=== PATIENT | male | born 1965 | race Caucasian/White ===

== ENCOUNTER 2018-09-29 20:55 | Emergency (ER) | payer MEDICARE ==
[~2018-09-29] VITALS: Ht 177.8 cm; Wt 79.5 kg
[2018-09-29] MEDS ORDERED: VENL150C43 PO (21:18)
[2018-09-29] MEDS ORDERED: OXYC10TA12 PO (21:18)
[2018-09-29] MEDS ORDERED: FENT1DIS14 TD (21:18)
[2018-09-29] MEDS ORDERED: SENNA DOCUSATE PO (21:18)
[2018-09-29] MEDS ORDERED: REME30TA PO (21:18)
[2018-09-29] MEDS ORDERED: PRED20TA PO (21:18)
[2018-09-29] MEDS ORDERED: VITA1CAP25 PO (21:18)
[2018-09-29] MEDS ORDERED: GABA800T4 PO (21:18)
[2018-09-29] MEDS ORDERED: PANT40TA3 PO (21:18)
[2018-09-29] MEDS ORDERED: HYDROMORPHONE HCL 0.5 MG/ 0.5 ML SYRINGE (J1170 PER 1) IM ONE (22:00)
[2018-09-29 22:27] VITALS: BP 129/85
--- NOTE | 2018-09-30 06:39 | ECGEPIP ---
Stationary ECG Study [facility] - ED Test Date: 2018-09-29 Pat Name: CINDY TAN Department: Room: - Gender: M Librarian: : 1965 Requested By: KIMBERLEE TERRY Order Number: [id number] Reading MD: Pipe Rodriguez Measurements Intervals [place] Rate: 91 P: 46 UT: 169 QRS: 17 QRSD: 89 T: 44 QT: 326 QTc: 402 Interpretive Statements SINUS RHYTHM NO OLD ECG FOR COMPARISON Electronically Signed On 09-30-2018 6:38:43 EDT by Pipe Rodriguez
[2018-10-03] MEDS ORDERED: MORP-38 PO (11:19)
[2018-10-03] MEDS ORDERED: APAP500T10 PO (11:20)
[2018-10-03] MEDS ORDERED: SENN8.6T28 PO (11:21)
[2018-10-03] MEDS ORDERED: VITA50005 PO (11:22)
[2018-10-03] MEDS ORDERED: IRON27TA2 PO (11:23)
[2018-10-03] MEDS ORDERED: OXYC10TA12 PO (12:29)
[2018-10-14] MEDS ORDERED: PRED20TA PO (13:00)
[2018-10-18] MEDS ORDERED: MOBI4TAB PO (09:21)
[2018-10-18] MEDS ORDERED: PANT40TA3 PO (09:23)
[2018-10-18] MEDS ORDERED: MORP-38 PO (09:48)
[2018-10-18] MEDS ORDERED: LASI20TA3 PO (10:17)
== END 2018-09-29 22:45 | disposition home or self-care (01) ==
LOC: M ED 20:55
DX: G89.29 Other chronic pain (principal); Z85.89 Personal history of malignant neoplasm of other organs and systems; Z92.3 Personal history of irradiation; Z79.899 Other long term (current) drug therapy
CPT/HCPCS: 93005; 96372; 99284; J1170

== ENCOUNTER → 2018-10-11 | Outpatient (CLI) | payer MEDICARE ==
[~2018-10-11] MED LIST: APAP500T10 PO; FENT1DIS14 TD; GABA800T4 PO; IRON27TA2 PO; LASI20TA3 PO; MOBI4TAB PO; MORP-38 PO; OXYC10TA12 PO; PANT40TA3 PO; PRED20TA PO; REME30TA PO; SENN8.6T28 PO; SENNA DOCUSATE PO; VENL150C43 PO; VITA1CAP25 PO; VITA50005 PO
--- NOTE | 2018-10-12 08:21 | REP ---
PET/CT: HISTORY: Staging head and neck malignancy. 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 Diagnosed in 2013. Skull base recurrence. COMPARISONS: No comparison study available. TECHNIQUE: 50 minutes following the intravenous injection of a 7.09 mCi dose of F-18 FDG, three-dimensional PET scintigraphy is acquired from the skull vertex to the proximal thighs. Triplanar noncontrast CT scanning is acquired through the same anatomic range for attenuation correction, and image registration with scan parameters optimized to minimize radiation exposure to the patient. PET scintigraphy and CT datasets were fused and displayed on a workstation with multiplanar and projection display capability. PET/CT FINDINGS: There is mild motion misregistration artifact in the head and neck region. There is normal variant skeletal muscle uptake bilaterally in the skeletal muscles of the neck. There is a hypermetabolic recurrence at the right side of the skull base with an area of bone destruction in the anterior occipital bone and petrous apex and adjacent soft tissue hyperactivity. This extends into the preauricular soft tissues and narrows the external auditory canal. Hypermetabolic uptake here displays maximum standard uptake value of 7.45. Right parotid soft tissue involvement displays a maximum standard uptake value 5.67. There are hypermetabolic foci in the mediastinal and bilateral hilar lymph nodes. A pretracheal lymph node displays maximum standard uptake value of 12.54. This lymph node measures 18 mm in short axis dimension. A subcarinal node which measures 15 mm in short axis dimension displays a maximum standard uptake value of 5.30. There is metabolic and corrina uptake in the left hilus, 7.51 SUV and in the right hilus, 3.70 SUV. There is an ill-defined opacity in the right lower lobe which is hypermetabolic, maximum standard uptake value 4.20. This could be inflammatory or neoplastic. There is a small quantity of right pleural fluid without hypermetabolic uptake. IMPRESSION: Hypermetabolic foci in the skull base and right superior neck as well as in mediastinal and bilateral hilar lymph nodes. Possible neoplastic focus in the right lower lobe of the lung. Electronically Signed by Davis Cordova MD 10/12/2018 05:24 P
== END ==
LOC: M PLARAD 13:30
PROVIDERS: ATTEND Internal Medicine Medical Oncology
DX: C76.0 Malignant neoplasm of head, face and neck (principal); R59.0 Localized enlarged lymph nodes; R91.8 Other nonspecific abnormal finding of lung field; Z85.818 Personal history of malignant neoplasm of other sites of lip, oral cavity, and pharynx; Z92.3 Personal history of irradiation; Z92.21 Personal history of antineoplastic chemotherapy
CPT/HCPCS: 78815; A9552

== ENCOUNTER 2018-11-08 17:12 | Inpatient (IN) | payer MEDICARE ==
[~2018-11-08] VITALS: Ht 177.8 cm; Wt 71.4 kg
[2018-11-08] VITALS (7 sets, daily range): BP systolic 60–87; BP diastolic 38–48
[~2018-11-08 17:12] MED LIST changes: +FENT12DI12 TOP; +MORP30TASA PO; +RITA5TAB PO
[2018-11-08] MEDS ORDERED: NS IV ONE (17:45)
[2018-11-08] MEDS ORDERED: ACETAMINOPHEN 650 MG SUPP PR ONE (17:45)
[2018-11-08] MEDS ORDERED: DILUENT IV ONE (17:45)
[2018-11-08] MEDS ORDERED: CEFEPIME HCL 2 GM in D5W MINI-BAG PLUS 50 ML IV ONE (17:45)
[2018-11-08 17:54] LABS: HEMATOCRIT 50.8 % (42.0-52.0); MEAN CORPUSCULAR HEMOGLOBIN 27.3 pg (27.0-33.0); MEAN CORPUSCULAR HGB CONC 29.5 g/dl (32.0-36.5); MEAN CORPUSCULAR VOLUME 92.4 fl (80.0-96.0); PLATELET COUNT, AUTOMATED 338 10^3/uL (150-450); WHITE BLOOD COUNT 9.7 10^3/uL (4.0-10.0)
[2018-11-08] MEDS ORDERED: SODIUM CHLORIDE 0.9% INJ 10 ML SYR IV PRN (18:00)
[2018-11-08 18:07] LABS: INR 0.92; PROTHROMBIN TIME 12.5 SECONDS (12.1-14.4)
[2018-11-08 18:08] LABS: PARTIAL THROMBOPLASTIN TIME 22.4 SECONDS (25.4-37.6)
[2018-11-08 18:09] LABS: ALBUMIN 3.3 GM/DL (3.2-5.2); ALT/SGPT 67 U/L (12-78); AMYLASE 30 U/L (25-115); BILIRUBIN,DIRECT < 0.1 MG/DL (0.0-0.2); BILIRUBIN,TOTAL 0.2 MG/DL (0.2-1.0); BLOOD UREA NITROGEN 26 MG/DL (7-18); C REACTIVE PROTEIN QUANTITATIV 9.66 MG/DL (0.00-0.30); CARBON DIOXIDE LEVEL 30 MEQ/L (21-32); CHLORIDE LEVEL 99 MEQ/L (98-107); CPK CREATINE PHOSPHOKINASE 52 U/L (39-308); GLOMERULAR FILTRATION RATE 37.3 (>56); GLUCOSE, FASTING 125 MG/DL (70-100); MB/CK RELATIVE INDEX 2.69 (< OR =4); POTASSIUM SERUM 3.8 MEQ/L (3.5-5.1); SODIUM LEVEL 138 MEQ/L (136-145); TOTAL PROTEIN 6.3 GM/DL (6.4-8.2); TROPONIN I 0.13 NG/ML (< 0.10)
--- NOTE | 2018-11-08 18:27 | REP ---
Portable chest x-ray: Single view. History: Sepsis, shock. Comparison study: September 07, 2016. Findings: EKG monitoring electrodes overlie the chest. A left-sided [id number] catheter is again noted in place. Right hemidiaphragm is somewhat elevated. There are some increased markings in the right lung base consistent with infiltrate and/or atelectasis. Pulmonary vasculature is somewhat cephalized. No free pleural effusion is seen. There is evidence of right coronary artery stent material. Impression: Increased markings in the right base along the right heart border may reflect infiltrate. Btnyzj-[id number]-Wrjg catheter noted in place. Electronically Signed by Davis Cordova MD 11/08/2018 10:37 P
[2018-11-08] MEDS ORDERED: VITA500045 PO (18:53)
[2018-11-08] MEDS ORDERED: FENT1DIS14 TD (18:55)
[2018-11-08] MEDS ORDERED: FENT12DI8 TD (18:55)
[2018-11-08] MEDS ORDERED: FERR325T3 PO (18:56)
[2018-11-08] MEDS ORDERED: LIDOCAINE 2% 5ML JELLY UROJET TOP ONE (19:00)
[2018-11-08] MEDS ORDERED: PANT40TA3 PO (19:01)
[2018-11-08] MEDS ORDERED: METH5TAB76 PO (19:01)
[2018-11-08] MEDS ORDERED: PRED20TA PO (19:01)
[2018-11-08] MEDS ORDERED: NEUR800T PO (19:01)
[2018-11-08] MEDS ORDERED: FURO20TA2 PO (19:01)
[2018-11-08] MEDS ORDERED: MORP15TA2 PO (19:01)
[2018-11-08 19:04] LABS: LYMPHOCYTES 5 % (16-52); MONOCYTES 5 % (0-8); NEUTROPHILS 55 % (35-75)
[2018-11-08 19:05] LABS: ATYPICAL LYMPH 1 % (0-5); METAMYELOCYTES 5 % (0-0); MYELOCYTES 1 % (0-0); PROMYELOCYTES 1 % (0-0)
[2018-11-08 19:08] LABS: PLATELET CLUMPS SMALL AMT; PLATELET ESTIMATE NORMAL (NORMAL)
[2018-11-08 19:10] LABS: ANISOCYTOSIS 1+
[2018-11-08] MEDS ORDERED: VANCOMYCIN HCL 1,000 MG, VIAL MATE ADAPTER 1 EACH in D5W 250 ML IV ONE (19:15)
[2018-11-08] MEDS ORDERED: PIPERACILLIN/TAZOBACTAM SOD 3.375 GM in D5W MINI-BAG PLUS 50 ML IV ONE (19:15)
--- NOTE | 2018-11-08 19:57 | ECGEPIP ---
Stationary ECG Study [facility] - ED Test Date: 2018-11-08 Pat Name: CINDY TAN Department: Room: - Gender: M Hog Man: TC : 1965 Requested By: Rashi Chavez Order Number: [id number] Reading MD: Abhay Haro Measurements Intervals [place] Rate: 157 P: 46 UT: 127 QRS: 49 QRSD: 77 T: 60 QT: 266 QTc: 430 Interpretive Statements SINUS TACHYCARDIA Nonspecific ST-T wave abnormalities Electronically Signed On 11-08-2018 19:57:00 EDT by Abhay Haro
[2018-11-08] MEDS ORDERED: LR 1,000 ML IV ONE ×2 (20:00→22:50)
[2018-11-08] MEDS ORDERED: MORPHINE 4 MG/ML 1ML VIAL/SYRINGE (J2270) IV PRN (20:00)
[2018-11-08] MEDS: IPRATROPIUM 0.5MG/ALBUTEROL 2.5MG INH SOL UD 3ML (DUONEB)(J7620) NEB SCH (20:00)
[2018-11-08] MEDS ORDERED: CIPROFLOXACIN 400 MG in APPROPRIATE DILUENT 1 EA IV SCH (20:00)
[2018-11-08 20:17] LABS: MAGNESIUM LEVEL 1.5 MG/DL (1.8-2.4)
--- NOTE | 2018-11-08 20:20 | HPEPDOC ---
General Date of Admission Attending Physician: EVIN LOERA MD Chief Complaint The patient is a 53-year-old male admitted with a reason for visit of Altered Mental Status. 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 Family at bedside provided history. They report patient has been tired at home. He had recently gone to [facility] for a second opinion on his cancer which had involved very long drive. They felt he was possibly tired because of the long trip. He had not complained of any chills or fever. However, this morning patient had multiple bouts of diarrhea which looked dark and tarry. There were concerned about possible GI bleed. Patient was also noted to be grabbing his midsection. Family estimates patient had more than 5 bouts of diarrhea. On admit pulse rate was 145, blood pressure was 55/32 with a map of 40, temp was 105.8. A dose of Maxipime was administered, was placed on continuous IV fluid bolus, hospitalist team, was endorsed for admission for possible GI bleed. On assessment, patient was unable to provide any history, and during evaluation, had another episode of foul smelly large watery BM. A sample was obtained for evaluation for possible GI infection. Home Medications Scheduled Ergocalciferol (Vitamin D2) (Vitamin D2) 50,000 Unit Capsule, 50,000 UNIT PO QWEEK, (Reported) SUNDAYS. PATIENT RAN OUT OF MED SO HASN'T TAKEN IN A WHILE Fentanyl (Fentanyl) 12 Mcg Patch.td72, 12 MCG TD Q72H, (Reported) USES WITH 25MCG PATCH TO EQUAL 37MCG EVERY 3 DAYS Fentanyl (Fentanyl) 25 Mcg Patch.td72, 25 MCG TD Q72H, (Reported) USES WITH 12MCG PATCH TO EQUAL 37MCG. APPLIES EVERY 3 DAYS Ferrous Sulfate (Ferrous Sulfate) 325 Mg Tablet.dr, 325 MG PO DAILY, (Reported) TAKES AT 1200 Furosemide (Furosemide) 20 Mg Tablet, 10 MG PO DAILY, (Reported) HAS NOT STARTED YET Gabapentin (Neurontin) 800 Mg Tablet, 800 MG PO QID, (Reported) Methylphenidate HCl (Methylphenidate HCl) 5 Mg Tablet, 5 MG PO DAILY, (Reported) Mirtazapine (Remeron) 30 Mg Tab, 30 MG PO QHS, (Reported) Pantoprazole Sodium (Pantoprazole Sodium) 40 Mg Tablet.dr, 40 MG PO BID, (Reported) Prednisone (Prednisone) 20 Mg Tablet, 20 MG PO BID, (Reported) Sennosides (Senna) 8.6 Mg Tab, 8.6 MG PO BID, (Reported) Venlafaxine HCl (Venlafaxine HCl ER) 150 Mg Cap, 150 MG PO DAILY, (Reported) Scheduled PRN Acetaminophen (Acetaminophen) 500 Mg Tab, 500 MG PO Q6H PRN for PAIN, (Reported) Morphine Sulfate (Morphine Sulfate) 15 Mg Tablet, 15 MG PO BID PRN for PAIN, (Reported) Allergies Coded Allergies: No Known Allergies (Unverified , 09/29/18) Attending Note I personally saw and examined the pt. Agree with BUCKET TURNER note above. IMP: Sepsis from colitis/enteritis with Circulatory and Renal Failure. Abdomen exam is benign; no indication of acute abdomen. Pt is having large amount of frequent watery diarrhea; yellow-greenish color. Suspect infectious enteritis/colitis. GI panel is pending. Empirically started on IV Cipro/Flagyl and oral Vanco. Continue fluid resuscitation, followed by vasopressor if needed. Monitor multi-organ functions. Admit to ICU. Spent 45 minutes in Critical Care. Past Medical History Medical History CAD Anemia Oropharyngeal cancer GERD Surgical History G-tube placement Social History Smokes one pack per day, drinks beer daily, no history of polysubstance abuse per family A-FIB/CHADSVASC A-FIB History Current/History of A-Fib/PAF?: No Current Oral Anticoagulant The: No Review of Systems Other systems Review of systems not completed due to patient's clinical state with altered mental status and sepsis Physical Examination Other physical findings GENERAL: NAD SKIN : Warm, dry intact HEENT: Mandibular edema CV: Tachycardia, Regular rate and rhythm, S1S2, no JVD, no edema RESP: CTAB, no accessory muscle use noted ABDOMEN: Hypoactive bowel sounds , distended , not palpated MS: no joint deformities NEURO: Lethargic PSYCH: Altered mental status, no agitation Vital Signs Vital Signs Date Time Temp Pulse Resp B/P (MAP) Pulse Ox O2 Delivery O2 Flow Rate FiO2 11/08/18 18:55 105.8 11/08/18 18:51 61/28 (39) 11/08/18 18:42 144 79 11/08/18 17:44 30 Room Air Laboratory Data Labs 24H Laboratory Tests 2 11/08/18 17:31: Immature Granulocyte % (Auto) , Nucleated Red Blood Cells % (auto) 0.2H, Neutrophils 55, Band Neutrophils 27H, Lymphocytes (Manual) 5L, Monocytes (Manual) 5, Metamyelocytes 5H, Myelocytes 1H, Promyelocytes 1H, Atypical Lymphocytes 1, Platelet Estimate NORMAL, Clumped Platelets SMALL AMT, Anisocytosis 1+, Prothrombin Time 12.5, Prothromb Time International Ratio 0.92, Activated Partial Thromboplast Time 22.4L, Anion Gap 9, Glomerular Filtration Rate 37.3L, Lactic Acid Level 4.6*H, Calcium Level 9.0, Aspartate Amino Transf (AST/SGOT) 39H, Alanine Aminotransferase (ALT/SGPT) 67, Alkaline Phosphatase 92, Total Bilirubin 0.2, Direct Bilirubin < 0.1, Total Creatine Kinase 52, Creatine Kinase MB 1.0, Creatine Kinase MB Relative Index 2.69, Troponin I 0.13H, C- Reactive Protein, Quantitative 9.66H, Total Protein 6.3L, Albumin 3.3, Albumin/Globulin Ratio 1.10, Amylase Level 30 CBC/BMP Laboratory Tests 11/08/18 17:31 Red Blood Count 5.50, Mean Corpuscular Volume 92.4, Mean Corpuscular Hemoglobin 27.3, Mean Corpuscular Hemoglobin Concent 29.5 L, Red Cell Distribution Width 18.3 H Microbiology Microbiology 11/08/18 Blood Culture, Received Pending Assessment/Plan Sepsis due to colitis with hypotension and acute kidney injury -Admit to ICU -Presenting with hypotension, tachycardia, elevated lactic acid, and significant diarrhea -Patient got 1 dose of Maxipime and emergency room -Due to high suspicion for infectious colitis, administer Cipro, Flagyl, and oral vancomycin -Stool sample for stool studies- follow findings -Blood culture, to rule out other infection source since he has a port -Lactated Ringer bolus till blood pressure normalized then transition to 200 mL per hour. -Protonix 40 mg twice a day IV -Pena catheter for close critical care monitoring Oropharyngeal cancer with maxillofacial edema --Continue steroid therapy with Solu-Medrol for now -Transitioned back to oral dosing when stable, able to tolerate by mouth and acute colitis, resolved Nicotine dependence --NicoDerm patch when patient is awake and has cravings DVT prophylaxis Heparin 5000 SQ Plan / VTE VTE Prophylaxis Ordered?: Yes HARPREET YEE November 08, 2018 20:20 EVIN LOERA MD November 08, 2018 21:56
[2018-11-08] MEDS ORDERED: DEXTROSE 50% 50 ML SYRINGE IV PRN (21:00)
[2018-11-08] MEDS ORDERED: methylPREDNISolone INJ 125 MG/2 ML VIAL (J2930) IV SCH (21:00)
[2018-11-08] MEDS ORDERED: methylPREDNISolone INJ 40 MG/1 ML VIAL (J2920) IV SCH (21:00)
[2018-11-08] MEDS ORDERED: CHLORHEXIDINE GLUCONATE 0.12 % 15ML UDC (PERIDEX ORAL RINSE) MT SCH (21:00)
[2018-11-08] MEDS ORDERED: GLUCOSE 4 GM CHEW TABLET PO PRN (21:00)
[2018-11-08] MEDS ORDERED: PANTOPRAZOLE 40MG INJ (PROTONIX) (C9113) IV SCH (21:00)
[2018-11-08] MEDS ORDERED: GLUCAGON FOR INJ 1 MG VIAL (J1610) SC PRN (21:00)
[2018-11-08] MEDS: VANCOMYCIN ORAL SOL 250MG/5ML ORAL SYRINGE PO SCH (21:33)
[2018-11-08] MEDS: metroNIDAZOLE 500 MG in APPROPRIATE DILUENT 1 EA IV SCH (21:33)
[2018-11-08 21:44] LABS: VENOUS BASE EXCESS -3.7 (-2.0-2.0); VENOUS HCO3 24.7 MEQ/L (23.0-27.0); VENOUS O2 SATURATION 87.7 % (60.0-80.0); VENOUS PARTIAL PRESSURE CO2 58.9 mmHg (38.0-50.0); VENOUS PARTIAL PRESSURE O2 68.5 mmHg (30.0-50.0); VENOUS PH 7.241 UNITS (7.330-7.430); VENOUS STANDARD HCO3 21.2 MEQ/L; VENOUS TOTAL CO2 26.5 MEQ/L (24.0-28.0)
[2018-11-08 22:07] LABS: CALCIUM LEVEL 7.8 MG/DL (8.5-10.1); CREATININE FOR GFR 2.45 MG/DL (0.70-1.30); GLOMERULAR FILTRATION RATE 29.5 (>56); POTASSIUM SERUM 3.7 MEQ/L (3.5-5.1); TROPONIN I 0.33 NG/ML (< 0.10)
[2018-11-08] MEDS: NOREPINEPHRINE BITARTRATE 8 MG in D5W 492 ML IV SCH (22:15)
[2018-11-08] MEDS ORDERED: NOREPINEPHRINE 4 MG/4 ML AMP As Ordered ONE (22:20)
[2018-11-08] MEDS ORDERED: ACETAMINOPHEN TAB 650MG DOSE (2X325MG) As Ordered ONE (22:52)
[2018-11-08] MEDS: HEPARIN SOD (PORCINE) 5000 UNITS/ML VIAL SC SCH (22:57)
[2018-11-08] MEDS: HYDROCORTISONE 100 MG/2 ML VIAL (J1720) IV SCH (22:57)
[2018-11-08] MEDS: PANTOPRAZOLE 40MG INJ (PROTONIX) (C9113) IV SCH (22:57)
[2018-11-08] MEDS ORDERED: ACETAMINOPHEN TAB 650MG DOSE (2X325MG) PO PRN (23:00)
[2018-11-08 23:23] LABS: INFLUENZA A AMPLIFICATION NEGATIVE (NEGATIVE); INFLUENZA B AMPLIFICATION NEGATIVE (NEGATIVE)
[2018-11-08] MEDS: LR 1,000 ML IV SCH (23:23)
[2018-11-08] MEDS ORDERED: MAG SULF 1GM/100ML (MAG RUN) 1 GM in APPROPRIATE DILUENT 1 EA IV ONE (23:30)
[2018-11-08] MEDS: VASOPRESSIN INJ 20 UNITS in NS 499 ML IV SCH (23:40)
[2018-11-09] VITALS (60 sets, daily range): BP systolic 60–136; BP diastolic 41–83
[2018-11-09] MEDS ORDERED: VASOPRESSIN INJ 20 UNITS in NS 499 ML IV SCH ×2
[2018-11-09] MEDS ORDERED: CBD OIL PO PRN (00:15)
[2018-11-09 00:19] LABS: ABG BASE EXCESS -1.7 (-2.0-2.0); ABG HCO3 22.9 MEQ/L (22.0-26.0); ABG O2 SATURATION 97.5 % (95.0-99.0); ABG PARTIAL PRESSURE CO2 38.4 mmHg (35.0-45.0); ABG PARTIAL PRESSURE O2 106.8 mmHg (75.0-100.0); ABG STANDARD HCO3 23.1 MEQ/L (22.0-26.0); ABG TOTAL CO2 24.1 MEQ/L (22.0-29.0); ABG pH (ARTERIAL) 7.394 UNITS (7.350-7.450)
[2018-11-09] MEDS: VANCOMYCIN ORAL SOL 250MG/5ML ORAL SYRINGE PO SCH ×4 (00:50→18:09)
[2018-11-09] MEDS ORDERED: EPINEPHrine HCL INJ 1 MG in D5W 240 ML IV SCH (01:00)
[2018-11-09 02:46] LABS: TROPONIN I 0.39 NG/ML (< 0.10)
[2018-11-09] MEDS ORDERED: NOREPINEPHRINE 4 MG/4 ML AMP As Ordered ONE (03:39)
[2018-11-09] MEDS: NOREPINEPHRINE BITARTRATE 8 MG in D5W 492 ML IV SCH ×4 (03:44→17:00)
[2018-11-09] MEDS: LR 1,000 ML IV SCH ×2 (04:00→09:52)
[2018-11-09] MEDS: metroNIDAZOLE 500 MG in APPROPRIATE DILUENT 1 EA IV SCH (04:18)
[2018-11-09 05:28] LABS: HEMATOCRIT 39.3 % (42.0-52.0); MEAN CORPUSCULAR HEMOGLOBIN 26.8 pg (27.0-33.0); MEAN CORPUSCULAR HGB CONC 29.3 g/dl (32.0-36.5); MEAN CORPUSCULAR VOLUME 91.6 fl (80.0-96.0); PLATELET COUNT, AUTOMATED 243 10^3/uL (150-450); RED BLOOD COUNT 4.29 10^6/uL (4.30-6.10); WHITE BLOOD COUNT 10.3 10^3/uL (4.0-10.0)
[2018-11-09 05:35] LABS: HEMOGLOBIN 11.5 g/dl (13.5-17.5)
[2018-11-09] MEDS: HEPARIN SOD (PORCINE) 5000 UNITS/ML VIAL SC SCH ×3 (05:39→21:01)
[2018-11-09] MEDS: fentaNYL 100 MCG/2 ML INJECTION (J3010) IV PRN ×9 (05:39→22:16)
[2018-11-09] MEDS: HYDROCORTISONE 100 MG/2 ML VIAL (J1720) IV SCH ×3 (05:39→21:15)
[2018-11-09 05:50] LABS: CALCIUM LEVEL 7.4 MG/DL (8.5-10.1); CREATININE FOR GFR 2.55 MG/DL (0.70-1.30); GLOMERULAR FILTRATION RATE 28.1 (>56); MAGNESIUM LEVEL 1.4 MG/DL (1.8-2.4); PHOSPHORUS LEVEL 4.6 MG/DL (2.5-4.9); POTASSIUM SERUM 4.4 MEQ/L (3.5-5.1)
[2018-11-09 05:55] LABS: ATYPICAL LYMPH 2 % (0-5); LYMPHOCYTES 7 % (16-52); MONOCYTES 7 % (0-8); NEUTROPHILS 73 % (35-75); PLATELET ESTIMATE NORMAL (NORMAL)
[2018-11-09 05:56] LABS: ANISOCYTOSIS 2+
[2018-11-09 05:57] LABS: GIANT PLATELETS 1+; TOXIC VACUOLATION 1+
--- NOTE | 2018-11-09 06:55 | CR ---
DATE OF CONSULTATION: 11/08/2018 HISTORY OF PRESENT ILLNESS: History was obtained from the chart and other collateral information as the patient is unable to provide a history currently. 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 The patient's family reported that he had been more lethargic and tired recently. However, he had recently taken a long trip to [facility] for a second opinion for his cancer and they thought he may have been tired due to the trip itself. Earlier in the day, he was noted to have multiple bouts of diarrhea, at least five episodes or more, with stool that appeared dark and tarry reportedly. He had also been grabbing his mid section. He had not complained of any fevers or chills at home. They did not report any increasing shortness of breath or chest pain. The patient does have a history of chronic pain secondary to his head and neck cancer and has had intermittent swelling on the right side of his face as well. The patient is on a fentanyl patch at home as well as on morphine for his pain and gabapentin. The patient also takes prednisone 20 mg 1-2 tablets a day as needed for facial swelling and Lasix 10 mg as needed for facial swelling as well. In the emergency department (ED), the patient was tachycardic and hypotensive with systolic blood pressures in the 60s. He was also febrile with a T-max of 106.3 rectally. In the ED, the patient was given antibiotics with Cefepime and normal saline bolus of 2.2 liters. He was given an additional 1 liter normal saline bolus for a total of 3 liters and continued to be hypotensive. He was transferred to the intensive care unit (ICU) for further care. PAST MEDICAL HISTORY: 1. 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 2. History of coronary artery disease. 3. Hypertension. 4. Gastroesophageal reflux disease. 5. Nephrolithiasis. 6. Anxiety and depression. 7. Arthritis. PAST SURGICAL HISTORY: 1. Cholecystectomy. 2. Feeding tube and Chemo-Port placement. 3. History of stent in artery near heart. FAMILY HISTORY: Mother with history of hypertension, fibromyalgia, osteoarthritis. Father with history of hypertension and diabetes. SOCIAL HISTORY: Current active smoker one pack a day. Drinks two beers daily. The patient uses CBD oil for pain, but denies any other illicit drug use. HOME MEDICATIONS: - morphine IR - fentanyl patch - gabapentin - mirtazapine - pantoprazole - venlafaxine - prednisone - Tylenol p.r.n. - senna - Colace - ergocalciferol - iron - meloxicam ALLERGIES: No known drug allergies. PHYSICAL EXAMINATION: Temperature 104.5, pulse 126, respirations 25, blood pressure was 64/38, O2 sat 100% on non-rebreather. General: The patient is lethargic, but arousable. He is oriented to person and place. He is able to follow commands, but is unable to speak for prolonged periods of time. HEENT: The patient is status post oral surgery. Has facial asymmetry noted with history of right-sided facial swelling. His mucous membranes are dry. Pupils are equal and reactive to light bilaterally. Cardiovascular: Tachycardiac. Regular rhythm. Normal S1 and S2. No murmurs appreciated. Pulmonary: Clear to auscultation bilaterally except for very mild crackles at the bases. Abdomen is soft, mildly distended, diffusely tender to palpation. There is some mild guarding. Extremities: There is no lower extremity edema noted bilaterally. His feet have a mottled appearance and are cool to the touch. LABORATORY DATA: WBC 9.7, hemoglobin 15.0, platelets 338, with 27% bands. Chemistry: Sodium 141, potassium 3.7, chloride 106, bicarb 25, BUN 32, creatinine 2.45, glucose 89, lactic acid 4.6 and repeat was 5.2, AST 39, ALT 67, alkaline phosphatase 92. Bilirubin normal. Troponin trended up to 0.33. Amylase was 30. IMAGING STUDIES: Chest x-ray shows a left-sided [id number] with the tip in superior vena cava (SVC). There is right hemidiaphragm elevation and questionable atelectasis versus infiltrate in the right lower base. There is evidence of some mildly increased interstitial markings in the lung. MICROBIOLOGY: GI panel PCR was positive for Clostridium difficile, Salmonella and enteropathogenic E-coli. ASSESSMENT/PLAN: The patient is a 53-year-old male with a history of oropharyngeal cancer status post chemotherapy radiation and oral surgery, history of CAD, gastroesophageal reflux disease, anxiety, depression, and chronic pain who presented with complaints of altered mental status. The patient with metabolic encephalopathy in the setting of septic shock. He was noted to have multiple bouts of diarrhea and in the ICU the patient had episode of watery, foul-smelling yellow-green diarrhea. He did not appear to have melena or any blood in the stool. His GI panel PCR was positive for salmonella, C difficile and enteropathogenic E. Coli. 1. Septic shock secondary to GI infection with stool PCR positive for salmonella, C difficile and enteropathogenic E-coli. - The patient is status post 3 liters of normal saline fluid bolus with no improvement in blood pressure. Levophed was started through his Ofbjdz-I-Zygd and vasopressin was added for a second pressor. Will titrate pressors to maintain a MAP above 65, may require additional epinephrine for a third pressor. - Continue to trend lactic acid - Continue with the fluid resuscitation given his ongoing GI losses. Would use lactated Ringer's and will need to continue to monitor electrolytes and replete as needed. Will replete magnesium and will follow up magnesium and phosphorus levels. - Continue with antibiotics with ciprofloxacin, Flagyl and by mouth vancomycin. - Would followup blood cultures - The patient was given Tylenol per rectum however given the diarrhea he did not likely absorb any of the Tylenol. Will try to give by mouth Tylenol for his fever when he is able to take oral medications. Will continue with cooling blanket for now for his fever. - The patient has history of chronic prednisone use for his facial swelling. Would start stress dose steroids with hydrocortisone 100 mg IV every 8 for possible adrenal insufficiency. - continue to monitor finger stick glucose checks and will supplement with D5W if hypoglycemic. 2. Acute kidney injury (DANIEL) likely in the setting of shock and hypovolemia. - Continue to monitor renal function and renally dose medications. - The patient's family was resistant to Pena placement initially and then they were agreeable, however, they were unable to place a Pena in the ED. Will continue monitoring for any urinary retention with bladder scan every 4 hours for now and consider attempting placement of a Pena again for monitoring of his urine output. - The patient has metabolic lactic acidosis. Will get an ABG to followup his acid base status. 3. The patient has positive troponins, likely demand ischemia. There is some history of coronary artery disease as well. Will continue to trend troponins and would check an echocardiogram. 4. Chronic pain. The patient was on Fentanyl patch and morphine as needed. As per family, they had been applying his new Fentanyl patch to his arm prior to the removal of the old Fentanyl patch for some overlap of the medication. Given his significant fever, suspect he may have had some increased absorption through the skin of the Fentanyl. His Fentanyl patch was removed in the ICU. Will continue to monitor his pain symptoms. will give fentanyl as need for pain, hold for excessive sedation Deep vein thrombosis (DVT) prophylaxis with heparin. Code status - full code. Total critical care time spent, not including any procedures approximately 1 hour and 40 minutes. MTDD
[2018-11-09] MEDS: VASOPRESSIN INJ 20 UNITS in NS 499 ML IV SCH ×2 (07:22→15:00)
[2018-11-09 07:31] LABS: APPEARANCE, URINE HAZY (CLEAR); BACTERIA, URINE AUTO NEGATIVE (NEGATIVE); BILIRUBIN, URINE AUTO NEGATIVE (NEGATIVE); BLOOD, URINE BLOOD 2+ (NEGATIVE); COLOR, URINE YELLOW (YELLOW); GLUCOSE, URINE (UA) AUTO 1+ mg/dL (NEGATIVE); KETONE, URINE AUTO NEGATIVE (NEGATIVE); LEUKOCYTE ESTERASE, URINE AUTO NEGATIVE (NEGATIVE); MUCUS, URINE SMALL (NEGATIVE); NITRITE, URINE AUTO NEGATIVE (NEGATIVE); PROTEIN, URINE AUTO 1+ mg/dL (NEGATIVE); RBC, URINE AUTO 1 /HPF (0-3); SPECIFIC GRAVITY URINE AUTO 1.009 (1.002-1.035); SQUAMOUS EPITHELIAL CELL UR AU 0 /HPF (0-6); UROBILINOGEN, URINE AUTO 0.2 mg/dL (0.0-2.0); WBC, URINE AUTO 1 /HPF (0-3)
[2018-11-09 07:55] LABS: ALBUMIN 2.1 GM/DL (3.2-5.2); ALT/SGPT 60 U/L (12-78); BILIRUBIN,DIRECT < 0.1 MG/DL (0.0-0.2); BILIRUBIN,TOTAL 0.2 MG/DL (0.2-1.0)
[2018-11-09] MEDS: MEROPENEM INJ 1 GM in APPROPRIATE DILUENT 1 EA IV SCH ×3 (07:59→20:40)
[2018-11-09] MEDS ORDERED: MEROPENEM INJ 1 GM in APPROPRIATE DILUENT 1 EA IV SCH (08:00)
[2018-11-09] MEDS: IPRATROPIUM 0.5MG/ALBUTEROL 2.5MG INH SOL UD 3ML (DUONEB)(J7620) NEB SCH ×2 (08:31→13:00)
[2018-11-09 09:25] LABS: ABG HCO3 19.7 MEQ/L (22.0-26.0); ABG O2 SATURATION 93.1 % (95.0-99.0); ABG PARTIAL PRESSURE CO2 31.8 mmHg (35.0-45.0); ABG PARTIAL PRESSURE O2 70.5 mmHg (75.0-100.0); ABG STANDARD HCO3 21.1 MEQ/L (22.0-26.0); ABG TOTAL CO2 20.7 MEQ/L (22.0-29.0); ABG pH (ARTERIAL) 7.411 UNITS (7.350-7.450)
[2018-11-09] MEDS: MAG SULF 1GM/100ML (MAG RUN) 1 GM in APPROPRIATE DILUENT 1 EA IV SCH ×2 (10:46→11:57)
--- NOTE | 2018-11-09 12:15 | IPNPDOC ---
Text Note Date of Service The patient was seen on 11/09/18. NOTE Subjective: Patient is a 53-year-old male with a PMHx of Oropharyngeal CA (Stage IV; Follows with Dr. Tang; has failed chemotherapy / radiation x 2 rounds, about to start Chemotherapy x round 3 for palliative care), CAD s/p Stent, Depression / Anxiety, Anemia, GERD who presented tot he ER with abdominal pain. Patient was seen and examined at the bedside. Currently patient has had improvement in his mentation. Is aware of person and place, not time. Denies any CP, SOB or palpitations. Denies any N/V. Reports some abdominal discomfort. Still has some loose stools. Has been able to make some urine over the night. Objective: Vitals (See below) General: Lying in bed, no acute distress, comfortable, AAOx3 HEENT: NC, AT CVS: RRR, +S1S2 Lungs: Fair air entry b/l, no evidence of wheezing / rhonchi / rales Abdomen: Soft, ND, NT Extremities: - Edema, - Calf tenderness Assessment and plan: Septic Shock - likely 2/2 gram negative bacteremia - 2/2 E. Coli; possibly 2/2 infectious diarrhea - 2/2 Salmonella / EPEC / C. diff colitis - Presented to the ER with diarrhea, fevers and hypotension - Patient remains hemodynamically unstable and is on 3 pressor support medications - Blood cultures 11/08: Gram negative; GI panel: Salmonella, C. Diff A/B, EPEC - c/w IV fluid resuscitation - Will repeat cultures today - Changed antibiotics to Meropenem and Vancomycin PO; s/p Ciprofloxacin and Flagyl - Dr. Meadows on consultation; appreciate their input Acute metabolic encephalopathy - likely 2/2 above; possibly 2/2 medications - Originated to person / place; not time - Will hold sedative based medications for now Lactic acidosis - possibly 2/2 septic shock, possibly 2/2 ischemic colitis - c/w Aggressive IV fluid hydration - Discussed case with Surgery; Dr. Espinoza; has evaluated patient - currently abdomen is benign, no need for intervention at this time Chronic steroid use; possible - 2/2 adrenal insufficiency - s/p Prednisone - c/w Hydrocortisone at higher dose Acute kidney injury - Unable to assess baseline renal function - Kidney function has deteriorated from the point of admission - However continues to make urine - Will reinsert Pena catheter - c/w IV fluid hydration Oropharyngeal cancer with maxillofacial edema - Stage IV - Prognosis of possibly 6 months to 1 years - Additional chemotherapy only for palliation - Discussed with Dr. Tang; follows patient as an outpatient Chronic pain - 2/2 oropharyngeal cancer - Discussed with Pharmacy; can not provide a Schedule I narcotic substance while inpatient - Gabapentin / Morphine PO / Fentanyl Patch on hold - Will c/w Fentanyl Hypomagnesemia - Will supplement Nicotine dependence - Will provide Nicotine patch at patient's request GERD - c/w Protonix IV DVT prophylaxis - c/w Heparin Code Status: - Full code Prognosis: - Poor Disposition: - Awaiting clinical improvement - Taper pressor support as tolerated VS,Fishbone, I+O VS, Fishbone, I+O Laboratory Tests 11/08/18 17:31 Red Blood Count 5.50, Mean Corpuscular Volume 92.4, Mean Corpuscular Hemoglobin 27.3, Mean Corpuscular Hemoglobin Concent 29.5 L, Red Cell Distribution Width 18.3 H 11/08/18 21:22 Calcium Level 7.8 L 11/09/18 05:16 Red Blood Count 4.29 L, Mean Corpuscular Volume 91.6, Mean Corpuscular Hemoglobin 26.8 L, Mean Corpuscular Hemoglobin Concent 29.3 L, Red Cell Distribution Width 18.1 H, Calcium Level 7.4 L, Neutrophils (%) (Auto) , Lymphocytes (%) (Auto) , Monocytes (%) (Auto) , Eosinophils (%) (Auto) , Basophils (%) (Auto) , Neutrophils # (Auto) , Lymphocytes # (Auto) , Monocytes # (Auto) , Eosinophils # (Auto) , Basophils # (Auto) Vital Signs Date Time Temp Pulse Resp B/P (MAP) Pulse Ox O2 Delivery O2 Flow Rate FiO2 11/09/18 11:13 100.8 100 26 118/69 (87) 96 5.0 11/08/18 17:44 Room Air I&O- Last 24 Hours up to 6 AM 11/09/18 06:00 Intake Total 57318.5 ml Output Total 0 ml Balance 78021.5 ml LENNY REICH MD November 09, 2018 12:15
--- NOTE | 2018-11-09 12:19 | REP ---
Portable chest x-ray: Single view. History: Hypoxia. Comparison study is from the previous evening at 05:47 p.m. Findings: A left-sided Opehdy-Q-Hbhc catheter remains in place. EKG electrodes are seen. There is discoid atelectasis and consolidation in the right base medially. This has increased when compared with yesterday's radiograph and is consistent with pneumonia with adjacent atelectasis. No new infiltrate on the left. Electronically Signed by Davis Cordova MD 11/09/2018 10:34 A
[2018-11-09] MEDS: NS 1,000 ML IV SCH ×2 (12:45→18:22)
[2018-11-09] MEDS ORDERED: fentaNYL 100 MCG/2 ML INJECTION (J3010) IV ONE (14:30)
[2018-11-09] MEDS: COMBIVENT RESPIMAT 100-20MCG INHALER 4GM INH SCH ×2 (16:44→20:02)
[2018-11-09] MEDS ORDERED: SODIUM CHLORIDE 0.9% INJ 10 ML SYR IV PRN ×2 (16:45)
[2018-11-09] MEDS ORDERED: SLF 3 ML SYR IV PRN (16:45)
--- NOTE | 2018-11-09 17:44 | ECHO ---
DATE OF PROCEDURE: 11/09/2018 AGE: 53 GENDER: Male HEIGHT: 70 inches WEIGHT: 163 pounds BODY SURFACE AREA: 1.93 m2 PATIENT LOCATION: Inpatient, ICU, room 3206 REFERRING PHYSICIAN: Hanane Meadows MD INDICATION: Sepsis. 2-D MEASUREMENTS: RV: 3.5 cm LV: 4.5 cm Septum: 0.8 cm Posterior wall: 2.8 cm Aortic root: 3.7 cm LA: 3.5 cm LVEF: 65% DOPPLER MEASUREMENTS: AV: 0.9 m/s LVOT: 0.8 m/s LVOT diameter: 2.0 cm MV-E: 39, A: 51, EA ratio: 0.8 Early mitral deceleration time: 185 ms E prime 4.7, A prime 14, E/E prime ratio: 8.2 PV: 0.8 m/s Pulmonary artery acceleration time: 116 ms RVSP: 29 mmHg IVC: 2.0 cm COMMENTS: Sinus tachycardia without intraventricular conduction disturbance. M-mode and two-dimensional echocardiography was performed with pulsed, continuous wave, color flow and tissue Doppler studies. Normal left ventricular size, wall thickness. Normal left atrial size with Doppler evidence of an impairment of LV diastolic function with currently normal estimated mean left atrial pressure. Normal right heart chamber sizes and motion and estimated pulmonary arterial pressure. Normal IVC size and collapse against an elevated central venous pressure. Normal appearing and functioning valvular structures. Normal aortic root size. No apparent intracardiac mass or pericardial effusion.
[2018-11-09 18:18] LABS: MAGNESIUM LEVEL 1.9 MG/DL (1.8-2.4)
--- NOTE | 2018-11-09 18:58 | RO ---
DATE OF PROCEDURE: 11/09/2018 PREPROCEDURE DIAGNOSIS: Septic shock. POSTPROCEDURE DIAGNOSIS: Septic shock. INDICATION: Venous access and vasopressor administration. ATTENDING PHYSICIAN: Dr. Meadows CONSENT: Consent was obtained from the patient's family prior to the procedure. Indication, risks and benefits were explained at length. PROCEDURE SUMMARY: Central line insertion practices form was completed by independent observer starting with the first hand wash prior to starting sterile technique. A time-out was performed prior to the procedure. My hands were washed immediately prior to the procedure. Full sterile technique was maintained throughout procedure including surgical cap mask with protective eye wear full gown and sterile gloves. The patient was placed in the Trendelenburg position and his left neck was prepped using chlorhexidine scrub and draped in a sterile fashion using a fenestrated drape and a sterile probe cover. The left internal jugular vein was identified using ultrasound. Anesthesia was achieved over the vein using 1% lidocaine. Using real time out plane guidance introducer needle was inserted into the left internal jugular vein under direct ultrasound visualization. Venous blood was withdrawn. The syringe was removed and a guidewire was attempted to be advanced into the introducer needle but encountered some resistance. Venous blood continued to be withdrawn from the syringe but the guidewire was unable to be advanced through the introducer needle likely secondary to his previous radiation and likely due to some scarring from his previous radiation in the neck and also possibly due to her previous IV placements and he does have a Chemo-Port as well on the left side. Therefore, the needle was removed and pressure was held at this site with hemostasis achieved. There was no hematoma noted.
--- NOTE | 2018-11-09 19:05 | RO ---
DATE OF PROCEDURE: 11/09/2018 PREPROCEDURE DIAGNOSIS: Septic shock. POSTPROCEDURE DIAGNOSIS: Septic shock. INDICATION: Venous access and vasopressor administration. ATTENDING PHYSICIAN: Dr. Meadows CONSENT: Consent was obtained from the patient's family prior to the procedure. Indications, risks and benefits were explained at length. PROCEDURE SUMMARY: A central line insertion practice form was completed by independent observer starting with the first hand wash prior to starting the sterile technique. A time-out was performed. My hands were washed immediately prior to the procedure. Full sterile technique was maintained throughout the procedure including surgical cap mask with protective eye wear full gown and sterile gloves. The patient was placed supine. The left inguinal region was prepped using chlorhexidine scrub and draped in sterile fashion using a fenestrated sterile drape and a sterile probe cover employed. The left femoral vein was identified using ultrasound. Anesthesia was achieved over vein using 1% lidocaine. Using real time out of plane guidance the introducer needle was inserted into the left femoral vein under direct ultrasound visualization. Venous blood was withdrawn. The syringe was removed and a guidewire was advanced into the introducer needle. The guidewire was visualized in the left femoral vein by ultrasound. The introducer needle was removed over the guidewire and a small incision was made at the skin surface with a scalpel and dilator was exchanged over the guidewire. After appropriate dilation was obtained the dilator was exchanged over the wire for a triple lumen central venous catheter. The wire was removed in the catheter was sutured in place. A sterile chlorhexidine impregnated dressing was placed over the catheter at the insertion site. The patient tolerated the procedure without any hemodynamic compromise. At time of procedure completion, all ports aspirated and flushed properly. Estimated blood loss was less than 5 mL.
--- NOTE | 2018-11-09 19:13 | CCN ---
DATE: 11/09/2018 The patient was seen and examined this morning during rounds. Patient was seen overnight, was started on pressors for septic shock with Levophed and vasopressin. Epinephrine was added as patient was hypotensive still on max Levophed and vasopressin. The patient has also been febrile throughout the night. Was placed on a cooling blanket with some improvement in his temperature. Was also given Tylenol as needed (p.r.n.). The patient has a history of chronic pain for which he takes fentanyl patch and morphine. He did require a few p.r.n. doses of fentanyl for pain overnight. This morning, the patient's pressor requirements have come down. He was on epinephrine at 1 mcg/kg per minute and was weaned down to Levophed at 15 mcg/kg per minute still on vasopressin at 0.04 units per minute. The patient has also started to have increasing urine output. His mental status has also improved. He has been weaned down to nasal cannula from non-rebreather as well. PHYSICAL EXAMINATION T-max 101.4, pulse 106, respirations 20, blood pressure 126/82, O2 sat 97% on 6 liters nasal cannula. In 5.7 liters, output was not recorded, possibly 200 mL overnight. His family had refused repeated attempts for Pena placement overnight. General: The patient is oriented to person and place; is more alert today. He is able to follow commands and answer questions appropriately. Does have some periods of confusion. HEENT: The patient has facial asymmetry noted with right-sided facial swelling and is status post oral surgery for his cancer. Mucous membranes are dry. Pupils are equal and reactive to light bilaterally. Cardiovascular: Tachycardiac, regular rhythm. Normal S1, S2. No murmurs appreciated. Pulmonary: Clear to auscultation bilaterally except for mild crackles at the base and some diminished breath sounds on the right base. Abdomen: Soft, mildly distended, nontender. Extremities: There is no lower extremity edema noted bilaterally. His feet have a mottled appearance and are cold to the touch. LABORATORY DATA WBC 10.3, hemoglobin 11.5, platelets 243. Chemistry: Sodium was 134, potassium 4.4, chloride 101, bicarb 22, BUN 31, creatinine 2.55, glucose 199, magnesium 1.4, lactic acid 6.1. Troponin increased to 0.39. ABG: pH 7.411, pCO2 of 31.8, pO2 of 70.5. Microbiology: Blood cultures positive for gram negative rods. 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 The patient had metabolic encephalopathy in the setting of septic shock. The patient was complaining of abdominal pain and had multiple bouts of diarrhea. His GI panel was positive on PCR for salmonella, C diff and enteropathogenic E-coli. IMPRESSION: 1. Septic shock secondary to GI infection with bacteremia of gram-negative rods. Likely E-coli bacteremia. Also possible Salmonella and C. Difficile. - The patient is on pressors for septic shock. Is on three pressors but has been able to be titrated on his Levophed down to 15 mcg/kg per minute. Will continue to titrate down epinephrine and titrate off epinephrine and continue with Levophed and vasopressin for two pressors. Will attempt to titrate off vasopressin as tolerated and continue with Levophed for blood pressure support to maintain a MAP above 65. Patient has one peripheral IV and his vasopressors are being given through his chemo [id number]. He has difficult peripheral access, therefore will place a central line for venous access at this time. - Lactic acid has continued to trend up although patient's urine output and mental status, blood pressures have continued to improve. Some of the lactic acid may be due to his renal failure as well as his malignancy for a possible type B lactic acidosis. - Continue with fluid resuscitation with normal saline and will need to continue to monitor and replete electrolytes as needed. The patient was noted to be hypomagnesemic again today. Will followup his phosphorus level. - Continue with antibiotics. Ciprofloxacin and Flagyl was discontinued and meropenem was started for broad spectrum coverage and vancomycin by mouth (p.o.) was continued. - Blood cultures show gram-negative rods, will repeat blood cultures today. - Continue with Tylenol as needed including what he gets for fever greater than 102. - Continue with stress dose steroids with hydrocortisone 100 mg every 8 hours for possible adrenal insufficiency given his chronic prednisone use. Will taper his hydrocortisone in the next day or two. - Continue to monitor fingerstick glucose checks. 2. Acute kidney injury (DANIEL) in the setting of septic shock and hypovolemia. - The patient's creatinine has trended up however, his urine output has increased. - Patient's family was resistant for a repeat Pena attempt initially, however, they are agreeable today for Pena placement for accurate monitoring of ins and outs. - Continue to followup his lactic acidosis trend. ABG today did not show any significant metabolic acidosis despite the increase lactate in his venous blood draw. The patient may have a component of type B lactic acidosis and not due to hypoperfusion or shock. 3. History of CAD with positive troponins. Likely demand ischemia in the setting of septic shock. Will continue to trend at troponin. - Will followup results of the echo. 4. History of chronic pain secondary to his metastatic oropharyngeal cancer. Fentanyl patch was discontinued given his fever. Will continue with fentanyl IV as needed and hold morphine given his renal failure. Will hold his gabapentin given his altered mental status. 6. GI prophylaxis. - DVT prophylaxis with heparin. 7. Code status: FULL CODE. Total critical care time spent not including any procedures was approximately 50 minutes.
[2018-11-09 19:19] LABS: CALCIUM LEVEL 7.3 MG/DL (8.5-10.1); CREATININE FOR GFR 1.59 MG/DL (0.70-1.30); GLOMERULAR FILTRATION RATE 48.5 (>56); POTASSIUM SERUM 3.5 MEQ/L (3.5-5.1)
[2018-11-09] MEDS: PANTOPRAZOLE 40MG INJ (PROTONIX) (C9113) IV SCH (20:38)
[2018-11-09] MEDS ORDERED: MAG SULF 1GM/100ML (MAG RUN) 1 GM in APPROPRIATE DILUENT 1 EA IV ONE (21:00)
[2018-11-09] MEDS: KCL 10MEQ/100ML SWI (KRUN) 10 MEQ in APPROPRIATE DILUENT 1 EA IV SCH ×2 (21:15→22:58)
[2018-11-09] MEDS ORDERED: LORazepam 2 MG/ML VIAL (J2060) As Ordered ONE ×2 (22:10→22:25)
[2018-11-09] MEDS ORDERED: LORazepam 2 MG/ML VIAL (J2060) IV PRN (22:30)
[2018-11-09] MEDS ORDERED: HALOPERIDOL 5 MG/ML VIAL (J1630) As Ordered ONE (22:34)
[2018-11-09] MEDS ORDERED: methylPREDNISolone INJ 40 MG/1 ML VIAL (J2920) As Ordered ONE (22:38)
[2018-11-09] MEDS ORDERED: LORazepam 2 MG/ML VIAL (J2060) IV STA (22:41)
[2018-11-09] MEDS ORDERED: methylPREDNISolone INJ 40 MG/1 ML VIAL (J2920) IV ONE (22:45)
[2018-11-09] MEDS ORDERED: HALOPERIDOL 5 MG/ML VIAL (J1630) IV ONE (22:45)
[2018-11-09] MEDS: SLF 3 ML SYR IV SCH (22:52)
[2018-11-09] MEDS: SODIUM CHLORIDE 0.9% INJ 10 ML SYR IV SCH (22:53)
[2018-11-09] MEDS: LORazepam 2 MG/ML VIAL (J2060) IV PRN (23:03)
[2018-11-09 23:37] LABS: ABG BASE EXCESS -1.7 (-2.0-2.0); ABG HCO3 21.5 MEQ/L (22.0-26.0); ABG O2 SATURATION 95.8 % (95.0-99.0); ABG PARTIAL PRESSURE CO2 31.4 mmHg (35.0-45.0); ABG PARTIAL PRESSURE O2 83.1 mmHg (75.0-100.0); ABG TOTAL CO2 22.4 MEQ/L (22.0-29.0); ABG pH (ARTERIAL) 7.453 UNITS (7.350-7.450)
[2018-11-09] MEDS ORDERED: ACETAMINOPHEN 650 MG SUPP PR PRN (23:45)
[2018-11-10] VITALS (78 sets, daily range): BP systolic 67–144; BP diastolic 40–86; O2SAT 96
[2018-11-10] MEDS: KCL 10MEQ/100ML SWI (KRUN) 10 MEQ in APPROPRIATE DILUENT 1 EA IV SCH (00:04)
--- NOTE | 2018-11-10 00:20 | REPVR ---
EXAM: XR Chest, 1 View EXAM DATE/TIME: 11/09/2018 11:35 PM CLINICAL HISTORY: 53 years old, male; Signs and symptoms; Other: Change in resp status TECHNIQUE: Imaging protocol: XR of the chest, 1 view. COMPARISON: CR PORTABLE CHEST X-RAY 11/09/2018 10:13 AM FINDINGS: Tubes, catheters and devices: There are multiple overlying electrocardiograph leads. There is a Port-A-Cath on the left with the tip at the SVC in satisfactory position. Lungs: Diffuse bilateral infiltrates. Subsegmental atelectasis in the right base. Pleural space: Small right pleural effusion. No left pleural effusion. No pneumothorax. Heart/Mediastinum: Unremarkable. No cardiomegaly. Diaphragm: Elevated right hemidiaphragm. Bones/joints: Unremarkable. IMPRESSION: 1. Diffuse bilateral infiltrates. Significantly increased from prior. Pulmonary edema versus pneumonia. 2. Subsegmental atelectasis in the right base. Unchanged from prior. Electronically signed by: Ashlyn Fuentes On 11/10/2018 00:19:44 AM
[2018-11-10] MEDS: fentaNYL 100 MCG/2 ML INJECTION (J3010) IV PRN ×4 (00:21→05:25)
[2018-11-10] MEDS: VASOPRESSIN INJ 20 UNITS in NS 499 ML IV SCH (00:22)
[2018-11-10] MEDS: LORazepam 2 MG/ML VIAL (J2060) IV PRN ×3 (01:19→10:34)
[2018-11-10] MEDS: NOREPINEPHRINE BITARTRATE 8 MG in D5W 492 ML IV SCH ×2 (02:33→16:15)
[2018-11-10] MEDS: HEPARIN SOD (PORCINE) 5000 UNITS/ML VIAL SC SCH ×3 (03:44→22:00)
[2018-11-10 05:15] LABS: HEMATOCRIT 33.2 % (42.0-52.0); HEMOGLOBIN 10.4 g/dl (13.5-17.5); MEAN CORPUSCULAR HEMOGLOBIN 27.6 pg (27.0-33.0); MEAN CORPUSCULAR HGB CONC 31.3 g/dl (32.0-36.5); MEAN CORPUSCULAR VOLUME 88.1 fl (80.0-96.0); PLATELET COUNT, AUTOMATED 192 10^3/uL (150-450); RED BLOOD COUNT 3.77 10^6/uL (4.30-6.10); WHITE BLOOD COUNT 14.6 10^3/uL (4.0-10.0)
[2018-11-10] MEDS: HYDROCORTISONE 100 MG/2 ML VIAL (J1720) IV SCH ×3 (05:27→21:35)
[2018-11-10] MEDS: VANCOMYCIN ORAL SOL 250MG/5ML ORAL SYRINGE PO SCH ×2 (05:28)
[2018-11-10] MEDS: SODIUM CHLORIDE 0.9% INJ 10 ML SYR IV SCH ×4 (05:28→22:00)
[2018-11-10] MEDS: SLF 3 ML SYR IV SCH ×3 (05:28→22:00)
[2018-11-10 07:14] LABS: ALBUMIN 2.1 GM/DL (3.2-5.2); ALT/SGPT 85 U/L (12-78); BILIRUBIN,TOTAL 0.3 MG/DL (0.2-1.0); BLOOD UREA NITROGEN 22 MG/DL (7-18); CALCIUM LEVEL 7.5 MG/DL (8.5-10.1); CARBON DIOXIDE LEVEL 25 MEQ/L (21-32); CHLORIDE LEVEL 94 MEQ/L (98-107); GLOMERULAR FILTRATION RATE > 60.0 (>56); GLUCOSE, FASTING 106 MG/DL (70-100); MAGNESIUM LEVEL 2.2 MG/DL (1.8-2.4); PHOSPHORUS LEVEL 3.8 MG/DL (2.5-4.9); POTASSIUM SERUM 3.7 MEQ/L (3.5-5.1); SODIUM LEVEL 129 MEQ/L (136-145); TOTAL PROTEIN 4.9 GM/DL (6.4-8.2); TROPONIN I 0.22 NG/ML (< 0.10)
--- NOTE | 2018-11-10 07:37 | CR ---
DATE OF CONSULTATION: 11/09/2018 This is a very pleasant 53-year-old male who is been followed by us just recently as he has moved back to live with his sister in the area. The patient had originally had a majority of his oncology and initial treatment diagnosis performed in [place] around one of the [facility] satellites. 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 His history starts back in November 2013, he was diagnosed with enlarged lymph node in the neck and the right tonsillar area was the primary. He started with combined modality, Erbitux and radiation therapy. 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 He completed concurrent chemotherapy and radiation with the cisplatin drive regimen. He was found to have extension into the deep soft tissues with ill-defined areas in the cervical lymph nodes. He was given a total of 6996 cGy. Unfortunately, the patient had also been found to have an extradural mass, which was adjacent to the right petrous apex and cerebellum area. The patient was then followed expectantly and then had gone for restaging down in [place]. He showed an intensely metabolic active mass in the right skull base along the lateral jugular foramen as well as an elongated mass along the angle of the mandible and the anterior margin. The right SCM muscle. This had measured 2.0 cm. The left tonsillar pillar also had shown increased areas of uptake showing consistent areas of disease. The patient had been maintained on pain management due to nerve infiltration with gabapentin at 800 mg p.o. daily as well as morphine sulfate. He had gotten a nerve ablation done at the [facility] through the neurosurgical service and pain management services. Unfortunately, the patient still remains in pain, although he stated that initially he did get some relief. The patient's history as far as his admission is most notable for hypotension and sepsis and the patient is currently in the intensive care unit. He is awake. He does not require an any intubation he is aware of his surroundings and those people who are around him, predominantly family members. He was initially placed on vasopressors, which are currently now being weaned off. The patient has taken high doses of steroids, which was initiated down in [place] due to facial swelling. The patient had been tried on gabapentin, as well as nerve blocks, as well as pain medication and still intermittently, due to the radiation therapy, would have massive swelling of the right side of the face that was only responsive to doses of prednisone at 40-50 mg. The patient would take those for several days until the swelling decreased and then he would stop them. The patient's last office visit was on 11/02/2018 where we discussed predominant pain management control. The patient was brought to the emergency room on 11/08/2018 complaining of abdominal pain as well as being lethargic, tired. He was found to be hypotensive and tachycardiac in the emergency room and the concern was that the patient had presented with sepsis. He was empirically started on Cipro, Flagyl and oral vancomycin. He was given 4 liters of IV fluid into the emergency room and started on vasopressor support. The GI panel was returned for C difficile, E-coli as well as Salmonella. ALLERGIES: The patient's allergies are currently no known drug allergies. CURRENT MEDICATIONS: - ciprofloxacin 400 mg IV q.12 h - Maxipime 2 grams IV once - meropenem 1 gram IV q.12 h - Flagyl 500 mg IV q.8 h - vancomycin 1000 mg IV times one - albuterol inhaler 1 puff q.i.d. - fentanyl citrate 325 mcg IV q.2 h p.r.n. for pain - heparin flushes - hydrocortisone 100 mg IV q.8 h - pantoprazole sodium 40 mg IV q.8 h REVIEW OF SYSTEMS: He is tired, lethargic, prefers not to his talk with the examiner. Is verbal with his family members. Currently is not complaining of any pain. He has some chills but no shaking chills at this point. Denies any history of any abdominal pain. PHYSICAL EXAMINATION: On his physical examination his temperature is 100.4, pulse 100, respiratory rate 31, BP 104/63 currently and pulse oximetry is 93, oxygen flow rate is at 4 liters. The patient has right-sided facial swelling. His globes are still white, nonicteric. He has some swelling of the right upper palpable area. Lips are without any lesion but swollen specifically on the right side. Neck: Supple. Chest: Decreased breath sounds at the bases throughout. The patient has generalized erythema on the posterior thorax, however, this is blurred somewhat by a very large tattoo that encompasses almost the posterior thorax. Cardiovascular: S1, S2 are appreciated with no murmurs. Abdomen: Somewhat soft. Extremities: Show no cyanosis, minimal swelling, edema. Minimal rash. LABORATORY: WBC count 10.3, hemoglobin and hematocrit 11.5/39.3, RDW 18.1, platelet count 243. Absolute neutrophil count were not performed. Serum chemistries show a sodium of 134, potassium 4.4, chloride 101, CO2 22, BUN 31, creatinine 2.55, fasting glucose 199. His albumin is 2.1. Going onto his imaging studies, the patient has a chest x-ray that was done on 11/09/2018 showing left-sided [id number]-[id number] catheter, EKG electrodes, discoid atelectasis, consolidation of the right base medially. No new infiltrate in the left. On his GI tract panel is positive for salmonella, C difficile and enteric pathogenic E-coli. His blood cultures from 11/08/2018 as well as his urine cultures from 11/09/2018 are currently pending. IMPRESSION: 1. Impression at this time is squamous cell carcinoma of the head and neck area with localize recurrence into the pressure of sinus bone area. 2. Gram-negative sepsis. 3. Suppression of the adrenal access secondary to long-term use of prednisone. 5. Right-sided facial swelling secondary to radiation induced, lymphedema. 5. Generalized weakness and fatigue. PLAN: Plan is to continue with the appropriate antibiotics therapy. I have had a discussion with the patient's two sister is at the bedside regarding anticipation of possibly waiting 48 hours for antibiotic therapy to be used. The patient is awake and talking and will be able to make his own decisions medically. At this point, the patient does not have known metastatic disease The patient had gone to [facility] and they had concurred on the use of nivolumab 3 mg/kg every 2 weeks as per the NCCN guidelines for recurrent. head and neck cancer Pain management will be done while the patient is in the ICU currently getting fentanyl and can be converted over to patches and oral medications as the patient progresses through his clinical course here in the ICU and eventually the floor. I will be more than happy to follow this patient with you and have discussions with caretakers.
[2018-11-10] MEDS: MEROPENEM INJ 1 GM in APPROPRIATE DILUENT 1 EA IV SCH ×2 (08:35→20:54)
[2018-11-10] MEDS: COMBIVENT RESPIMAT 100-20MCG INHALER 4GM INH SCH ×2 (09:00→11:30)
[2018-11-10] MEDS: CHLORHEXIDINE GLUCONATE 0.12 % 15ML UDC (PERIDEX ORAL RINSE) MT SCH ×2 (09:00→20:54)
[2018-11-10 09:14] LABS: ABG BASE EXCESS 2.7 (-2.0-2.0); ABG HCO3 27.5 MEQ/L (22.0-26.0); ABG PARTIAL PRESSURE CO2 42.9 mmHg (35.0-45.0); ABG PARTIAL PRESSURE O2 99.4 mmHg (75.0-100.0); ABG STANDARD HCO3 26.9 MEQ/L (22.0-26.0); ABG TOTAL CO2 28.8 MEQ/L (22.0-29.0); ABG pH (ARTERIAL) 7.424 UNITS (7.350-7.450)
--- NOTE | 2018-11-10 09:43 | REP ---
CHEST, SINGLE VIEW: Single view of the chest is performed. COMPARISON: 11/09/2018 There are diffuse bilateral infiltrates again seen, slightly worse on the left. I suspect a mild to moderate right pleural effusion. Cardiomediastinal unchanged. Left central venous catheter is seen with the tip in the superior vena cava. Electronically Signed by Capo Sequeira MD 11/10/2018 04:15 P
[2018-11-10] MEDS ORDERED: MIDAZOLAM INJ 2 MG/2 ML VIAL (J2250) As Ordered ONE (11:56)
[2018-11-10] MEDS ORDERED: methylPREDNISolone INJ 125 MG/2 ML VIAL (J2930) IV SCH ×2 (12:00→18:00)
[2018-11-10] MEDS ORDERED: SUCCINYLCHOLINE INJ 200 MG/10 ML VIAL (J0330) IV ONE (12:00)
[2018-11-10] MEDS ORDERED: ETOMIDATE INJ 20MG/10ML VIAL IV ONE (12:00)
--- NOTE | 2018-11-10 12:02 | IPNPDOC ---
Text Note Date of Service The patient was seen on 11/10/18. NOTE Subjective: Patient is a 53-year-old male with a PMHx of Oropharyngeal CA (Stage IV; Follows with Dr. Tang; has failed chemotherapy / radiation x 2 rounds, about to start Chemotherapy x round 3 for palliative care), CAD s/p Stent, Depression / Anxiety, Anemia, GERD who presented tot he ER with abdominal pain. Patient was seen and examined at the bedside. This morning patient was difficult to arouse after he had received sedative medications. Family was present at the bedside, and I have addressed their questions / concerns. Objective: Vitals (See below) General: Lying in bed, appears comfortable, sleeping but arousable HEENT: NC, AT CVS: RRR, +S1S2 Lungs: Poor inspiratory effort bilaterally Abdomen: Soft, non-distended, without tenderness Extremities: No appreciable edema, - Calf tenderness Assessment and plan: Septic Shock - likely 2/2 gram negative bacteremia - 2/2 E. Coli; possibly 2/2 infectious diarrhea - 2/2 Salmonella / EPEC / C. diff colitis - Presented to the ER with diarrhea, fevers and hypotension - Patient remains hemodynamically unstable - Blood cultures 11/08: Gram negative rods; Repeat blood cultures 11/09/18: Pending - GI panel: Salmonella, C. Diff A/B, EPEC; - Currently on Levophed; Off Epinephrine and Vasopressin - s/p IV fluid resuscitation - c/w Meropenem and Vancomycin PO; will change to [place]; s/p Ciprofloxacin and Flagyl - Dr. Meadows on consultation; appreciate their input Acute hypoxia - likely 2/2 fluid overload, possible ARDS, possibly 2/2 sepsis - Has been requiring higher amounts of supplemental oxygen - ABG with severe hypoxia given FIO2 of 100%; paO2/FIO2 ratio of 99; severe ARDS? - CXR 11/09: There are diffuse bilateral infiltrates again seen, slightly worse on the left. I suspect a mild to moderate right pleural effusion. Cardiomed iastinal unchanged. Left central venous catheter is seen with the tip in the superior vena cava. - s/p IV fluids - Dr. Meadows on consultation; appreciate their input Acute metabolic encephalopathy - likely 2/2 above; possibly 2/2 medications - Currently appears sedated Lactic acidosis - possibly 2/2 septic shock, possibly 2/2 ischemic colitis - Appears to be improving - s/p Aggressive IV fluid hydration - Discussed case with Surgery; Dr. Espinoza; has evaluated patient - currently abdomen is benign, no need for intervention at this time Chronic steroid use; possible - 2/2 adrenal insufficiency - s/p Prednisone - c/w Hydrocortisone; has been reduced Acute kidney injury - Unable to assess baseline renal function - Cr has improved - Continues to make urine - s/p Insertion of Pena catheter - s/p IV fluid hydration Oropharyngeal cancer with maxillofacial edema - Stage IV - Prognosis of possibly 6 months to 1 years - Additional chemotherapy only for palliation - Dr. Tang on consultation Chronic pain - 2/2 oropharyngeal cancer - Discussed with Pharmacy; can not provide a Schedule I narcotic substance while inpatient - Gabapentin / Morphine PO / Fentanyl Patch on hold - c/w Fentanyl s/p Hypomagnesemia Nicotine dependence - Will provide Nicotine patch at patient's request GERD - c/w Protonix IV DVT prophylaxis - c/w Heparin Code Status: - Full code Prognosis: - Poor Disposition: - Awaiting clinical improvement - Taper pressor support as tolerated VS,Fishbone, I+O VS, Fishbone, I+O Laboratory Tests 11/09/18 17:43 Calcium Level 7.3 L 11/10/18 04:58 Calcium Level 7.5 L, Red Blood Count 3.77 L, Mean Corpuscular Volume 88.1, Mean Corpuscular Hemoglobin 27.6, Mean Corpuscular Hemoglobin Concent 31.3 L, Red Cell Distribution Width 17.0 H, Phosphorus Level 3.8 #, Aspartate Amino Transf (AST/SGOT) 96 H, Alanine Aminotransferase (ALT/SGPT) 85 H, Alkaline Phosphatase 69, Total Bilirubin 0.3, Total Protein 4.9 L, Albumin 2.1 L Vital Signs Date Time Temp Pulse Resp B/P (MAP) Pulse Ox O2 Delivery O2 Flow Rate FiO2 11/10/18 06:19 16 11/10/18 06:00 97.9 93 92/63 (73) 92 11/09/18 21:00 6.0 11/08/18 17:44 Room Air I&O- Last 24 Hours up to 6 AM 11/10/18 06:00 Intake Total 5808 ml Output Total 6200 ml Balance -392 ml LENNY REICH MD November 10, 2018 12:02
[2018-11-10] MEDS ORDERED: methylPREDNISolone INJ 125 MG/2 ML VIAL (J2930) As Ordered ONE (12:10)
[2018-11-10] MEDS: MIDAZOLAM INJ 2 MG/2 ML VIAL (J2250) IV PRN ×3 (12:10→23:34)
[2018-11-10] MEDS: methylPREDNISolone INJ 125 MG/2 ML VIAL (J2930) IV SCH (12:13)
[2018-11-10] MEDS ORDERED: PROPOFOL 1,000 MG/100 ML VIAL As Ordered ONE (12:21)
[2018-11-10] MEDS: VANCOMYCIN HCL 1,000 MG, VIAL MATE ADAPTER 1 EACH in D5W 250 ML IV SCH (12:55)
[2018-11-10] MEDS: PROPOFOL 1,000 MG in APPROPRIATE DILUENT 1 EA IV SCH ×2 (12:57→21:22)
[2018-11-10] MEDS ORDERED: VANCOMYCIN HCL 500 MG in D5W MINI-BAG PLUS 100 ML IV ONE (13:00)
[2018-11-10] MEDS: VANCOMYCIN ORAL SOL 250MG/5ML ORAL SYRINGE PR SCH ×2 (13:15→18:03)
[2018-11-10] MEDS: fentaNYL CITRATE 1,000 MCG in NS 80 ML IV SCH (13:15)
--- NOTE | 2018-11-10 13:20 | REP ---
Portable chest x-ray: Single view, 12:41 p.m. film. History: Intubated patient. Comparison chest x-ray: November 10, 2018, 6:53 a.m. film. Findings: A left-sided internal jugular central venous Atvjcb-[id number] catheter is seen in place with its tip in the expected location of the superior vena cava. A nasogastric tube enters the left upper quadrant. Endotracheal tube is seen in good position at the level of the transverse aorta. There is blunting of the right lateral pleural angle unchanged. Extensive bilateral pulmonary parenchymal infiltrates persist unchanged. Impression: Nasogastric and endotracheal tubes in good position. Electronically Signed by Davis Cordova MD 11/10/2018 03:07 P
--- NOTE | 2018-11-10 13:44 | RO ---
ENDOTRACHEAL INTUBATION PROCEDURE NOTE DATE OF PROCEDURE: 11/10/2018 PREPROCEDURE DIAGNOSIS: Hypoxemic respiratory failure. POSTPROCEDURE DIAGNOSIS: Hypoxemic respiratory failure. INDICATION: Respiratory failure. ATTENDING PHYSICIAN: Hanane Meadows MD CONSENT: Endotracheal intubation procedure was discussed with the patient's family prior to the procedure. Indication, risks, and benefits were explained at length, and verbal consent was obtained. PROCEDURE SUMMARY: The patient was placed on environmental monitoring specialist, including continuous pulse oximetry. Rapid sequence intubation was conducted. The patient received 2 mg of Versed prior to procedure for pre-sedation. He also received Solu-Medrol 60 mg intravenous (IV) push. For RSI, he was given 20 mg of etomidate for induction and did not require any medication for paralysis. Using a size 4 GlideScope, the patient was intubated with a size 7 and 7.5 endotracheal tube with stylet. The patient was intubated on the first-pass attempt. The stylet was removed, and balloon cuff was inflated. Appropriate endotracheal tube position was confirmed by direct visualization of vocal cord passage, fogging of the tube, CO2 colorimetric indicator, and symmetric breath sounds. The tube was secured at 23 cm at the lips. Postintubation chest x-ray showed endotracheal (ET) tube in good position. [facility]
[2018-11-10 13:49] LABS: ABG BASE EXCESS 5.5 (-2.0-2.0); ABG HCO3 28.8 MEQ/L (22.0-26.0); ABG PARTIAL PRESSURE CO2 37.4 mmHg (35.0-45.0); ABG PARTIAL PRESSURE O2 203.5 mmHg (75.0-100.0); ABG STANDARD HCO3 29.5 MEQ/L (22.0-26.0); ABG pH (ARTERIAL) 7.505 UNITS (7.350-7.450)
[2018-11-10] MEDS: IPRATROPIUM 0.5MG/ALBUTEROL 2.5MG INH SOL UD 3ML (DUONEB)(J7620) NEB SCH (20:11)
[2018-11-10] MEDS: PANTOPRAZOLE 40MG INJ (PROTONIX) (C9113) IV SCH (20:54)
--- NOTE | 2018-11-10 22:33 | CCN ---
DATE: 11/10/2018 Overnight the patient was noted to have increased agitation as well as desaturation. The patient was very aggressive and delirious overnight and was not redirectable with his family. He was given his fentanyl for pain as well as Ativan for agitation, but continued to be very combative. He was therefore given Haldol 5 mg IV with improvement in his agitation. Throughout the rest of the night he continued to require as needed (p.r.n.) Ativan and fentanyl. He does continue to be confused and delirious. He also was noted to have worsening hypoxia and was requiring a non-rebreather with O2 sats in the low 90s. His blood pressures have improved and he has been weaned down to just Levophed at 6 to 8 mcg/kg per minute He also has had increased urine output. PHYSICAL EXAMINATION T-max was 101.5 this morning, temperature was 98.1, pulse was 102, respirations 24, blood pressure 87/52, O2 saturation 94% on non-rebreather. General: The patient is delirious and lethargic. He is noted to have some abdominal breathing. HEENT: The patient has facial asymmetry with right-sided facial swelling and is status post oral surgery for his cancer, is edentulous. Mucous membranes are dry. Pupils reactive to light bilaterally. Cardiovascular: Tachycardic. Regular rhythm. Normal S1-S2. No murmurs appreciated. Pulmonary: There is coarse breath sounds and crackles bilaterally. Diminished breath sounds. Abdomen is soft, nontender, nondistended. Extremities: There is no lower extremity edema bilaterally. His feet have a mottled appearance. LABORATORY DATA WBC increased 14.6, hemoglobin 10.4, platelets 192. Chemistry: Sodium 129, potassium 3.7, chloride 94, bicarb 25, BUN 22, creatinine 1.2, glucose 106, lactic acid trended down to 3.7, calcium is 7.5, phosphorus 3.8, magnesium 2.2. Troponin trending down to 0.22. Microbiology: Blood cultures preliminary from 11/08/2018 are still gram negative rods with no final speciation. Chest x-ray this morning shows increasing bilateral infiltrates, more on the left and a mild to moderate right pleural effusion. A left Zjckwr-T-Okus is seen with the tip in SVC. ASSESSMENT/PLAN The patient is a 53-year-old male with history of oropharyngeal cancer status post chemotherapy/radiation and oral surgery, CAD, gastroesophageal reflux disease, anxiety, depression and chronic pain who presented with complaints of altered mental status. The patient had metabolic encephalopathy in the setting of septic shock. The patient was noted to have multiple bouts of diarrhea and his GI panel was positive on PCR for salmonella, C diff and enteropathogenic E-coli. His blood cultures were positive for gram-negative rods. IMPRESSION 1. Septic shock secondary to GI infection with bacteremia, gram-negative rods, likely E-coli. Also possible Salmonella and C diff. - The patient was on three pressors for septic shock however has been able to be weaned down to just Levophed and off of the vasopressin and epinephrine. Will continue to titrate down Levophed as tolerated. - Lactic acidosis has continued to trend down. - The patient has received aggressive fluid resuscitation and he now appears to be auto diuresing. Will continue to monitor his ins and outs and replete his electrolytes as needed. He does have some mild to moderate effusion on the right side which may be from fluid overload. Would hold off on fluids unless the patient becomes hypotensive and can give boluses of fluids then as needed. - Continue with antibiotics with meropenem and vancomycin by mouth (p.o.) - Will followup results of his initial blood cultures speciation. - Continue with stress dose steroids; will taper down to 50 mg IV every 12. 2. Hypoxemic respiratory failure and increasing bilateral infiltrates with a mild to moderate effusion on the right. The patient has also had increasing white count and there is a possibility of pneumonia versus acute respiratory distress syndrome (ARDS). There also may be a component of fluid overload given his aggressive fluid hydration with his septic shock. - The patient's ABG on a non-rebreather shows a PA FIO2 ratio of less than 100 consistent with increased AA gradient. - The patient has also required increasing medications for agitation and delirium. He is on chronic benzodiazepine and fentanyl and has been getting those medications. However, there still may be a component of possible withdrawal including ICU delirium. With these medications, however, there is more concern that he will have difficulty protecting his airway and especially given his worsening chest x-ray, increasing oxygen requirement and suspicion for ARDS. Patient is at risk for acute respiratory failure, therefore would intubate the patient and place him on mechanical ventilation. Discussed this with the patient's family and while they do want the patient to be full code and for every possible treatment they are hesitant about intubation. However given his worsening respiratory status, the decision was made to proceed with intubation earlier this morning. - Will check daily ABGs and chest x-rays while intubated. - Will continue to wean down on his FIO2 on the vent as tolerated. The patient is on PRVC at 420/15/80 and 7. May need to increase his PEEP especially if patient has ARDS. - Given the possibility of pneumonia will add IV vancomycin for possible MRSA coverage. - The patient has also been on prednisone and he does have a history of facial swelling due to his oropharyngeal cancer. He has been getting hydrocortisone which has minimal corticoid activity but minimal glucocorticoid activity. He was given IV Solu-Medrol yesterday when he had his episode of desaturation. Will continue with Solu-Medrol 60 mg every 12 and will taper off of hydrocortisone to just Solu-Medrol. 3. DANIEL in the setting of septic shock and hypovolemia. The patient's creatinine has improved and his urine output has increased. He is likely auto diuresing at this time. - Continue to monitor ins and outs and replete electrolytes as needed. 4. History of CAD with demand ischemia in the setting of septic shock. His troponins have trended down. His echo showed normal ejection fraction (EF) and normal right-sided heart chambers and pulmonary artery pressures. IVC showed normal size and collapse against elevated central venous pressure. There is no significant valvular disease. 5. 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 The patient will be started on a fentanyl drip while intubated and started on propofol for sedation while intubated. GI prophylaxis. DVT prophylaxis. CODE STATUS: FULL CODE. Total critical care time spent not including procedures was approximately 50 minutes.
[2018-11-11] VITALS (93 sets, daily range): BP systolic 77–137; BP diastolic 47–84; O2SAT 94–95
[2018-11-11] MEDS: methylPREDNISolone INJ 125 MG/2 ML VIAL (J2930) IV SCH ×2 (00:37→12:08)
[2018-11-11] MEDS: VANCOMYCIN HCL 1,000 MG, VIAL MATE ADAPTER 1 EACH in D5W 250 ML IV SCH ×2 (00:38→12:07)
[2018-11-11] MEDS: VANCOMYCIN ORAL SOL 250MG/5ML ORAL SYRINGE PR SCH ×5 (00:38→23:38)
[2018-11-11] MEDS: IPRATROPIUM 0.5MG/ALBUTEROL 2.5MG INH SOL UD 3ML (DUONEB)(J7620) NEB SCH ×4 (02:05→19:57)
[2018-11-11] MEDS: MIDAZOLAM INJ 2 MG/2 ML VIAL (J2250) IV PRN ×9 (02:52→23:57)
[2018-11-11] MEDS: PROPOFOL 1,000 MG in APPROPRIATE DILUENT 1 EA IV SCH ×4 (04:08→20:12)
[2018-11-11] MEDS: SLF 3 ML SYR IV SCH ×3 (05:56→20:13)
[2018-11-11] MEDS: HYDROCORTISONE 100 MG/2 ML VIAL (J1720) IV SCH ×3 (05:56→21:24)
[2018-11-11] MEDS: HEPARIN SOD (PORCINE) 5000 UNITS/ML VIAL SC SCH ×3 (06:00→21:24)
[2018-11-11] MEDS: SODIUM CHLORIDE 0.9% INJ 10 ML SYR IV SCH ×4 (06:00→21:25)
[2018-11-11 06:25] LABS: ABG BASE EXCESS 5.7 (-2.0-2.0); ABG HCO3 29.4 MEQ/L (22.0-26.0); ABG O2 SATURATION 97.4 % (95.0-99.0); ABG PARTIAL PRESSURE CO2 39.2 mmHg (35.0-45.0); ABG PARTIAL PRESSURE O2 99.8 mmHg (75.0-100.0); ABG STANDARD HCO3 29.7 MEQ/L (22.0-26.0); ABG TOTAL CO2 30.6 MEQ/L (22.0-29.0); ABG pH (ARTERIAL) 7.493 UNITS (7.350-7.450)
[2018-11-11] MEDS: NOREPINEPHRINE BITARTRATE 8 MG in D5W 492 ML IV SCH (06:37)
[2018-11-11] MEDS: MEROPENEM INJ 1 GM in APPROPRIATE DILUENT 1 EA IV SCH (07:42)
--- NOTE | 2018-11-11 08:11 | IPNPDOC ---
Date Seen The patient was seen on 11/10/18. The patient has just been intubated in the ICU and is starting the propofol drip . Some agitation . He had desatruated and had respiratory failure requiring intubation Vasopressors being weaned . Laboratory Tests 11/09/18 17:43 Calcium Level 7.3 L 11/10/18 04:58 Calcium Level 7.5 L, Red Blood Count 3.77 L, Mean Corpuscular Volume 88.1, Mean Corpuscular Hemoglobin 27.6, Mean Corpuscular Hemoglobin Concent 31.3 L, Red Cell Distribution Width 17.0 H, Phosphorus Level 3.8 #, Aspartate Amino Transf (AST/SGOT) 96 H, Alanine Aminotransferase (ALT/SGPT) 85 H, Alkaline Phosphatase 69, Total Bilirubin 0.3, Total Protein 4.9 L, Albumin 2.1 L I&O- Last 24 Hours up to 6 AM 11/11/18 06:00 Intake Total 1802.7 ml Output Total 4855 ml Balance -3052.3 ml I had a discussion with the Walker family 3 members were present 2 sisters and one mother we had a discussion in the ICU waiting area regarding his sepsis , intubation and lung findings Progress Note I spent 20 minutes in discussion regaridng the care , potential outcomes and the need to take each days findings over the next 72 hours before making any projections regarding his illness They retunred an understanding of the seriousness of his condition and will await the intensivists assessments daily A-FIB/CHADSVASC A-FIB History Current/History of A-Fib/PAF?: No VS, I&O, 24H, Fishbone Vital Signs/I&O Vital Signs Date Time Temp Pulse Resp B/P (MAP) Pulse Ox O2 Delivery O2 Flow Rate FiO2 11/11/18 06:37 100/61 11/11/18 06:00 92 97 45 11/11/18 04:20 Ventilator 11/11/18 04:20 16 11/11/18 04:00 97.5 11/10/18 12:00 15.0 I&O- Last 24 Hours up to 6 AM 11/11/18 06:00 Intake Total 1802.7 ml Output Total 4855 ml Balance -3052.3 ml Laboratory Data 24H LABS Laboratory Tests 2 11/10/18 08:58: Blood Gas Bicarbonate Standard 26.9H, Arterial Blood pH 7.424, Arterial Blood Partial Pressure CO2 42.9, Arterial Blood Partial Pressure O2 99.4, Arterial Blood Total CO2 28.8, Arterial Blood HCO3 27.5H, Arterial Blood Base Excess 2.7H, Arterial Blood Oxygen Saturation 97.0 11/10/18 13:42: Blood Gas Bicarbonate Standard 29.5H, Arterial Blood pH 7.505H, Arterial Blood Partial Pressure CO2 37.4, Arterial Blood Partial Pressure O2 203.5H, Arterial Blood Total CO2 30.0H, Arterial Blood HCO3 28.8H, Arterial Blood Base Excess 5.5H, Arterial Blood Oxygen Saturation 99.0 11/10/18 13:44: Bedside Glucose (Misc Panel) 189H 11/10/18 18:01: Bedside Glucose (Misc Panel) 203H 11/11/18 00:51: Bedside Glucose (Misc Panel) 202H 11/11/18 06:00: Bedside Glucose (Misc Panel) 217H 11/11/18 06:14: Blood Gas Bicarbonate Standard 29.7H, Arterial Blood pH 7.493H, Arterial Blood Partial Pressure CO2 39.2, Arterial Blood Partial Pressure O2 99.8, Arterial Blood Total CO2 30.6H, Arterial Blood HCO3 29.4H, Arterial Blood Base Excess 5.7H, Arterial Blood Oxygen Saturation 97.4 Microbiology Microbiology 11/09/18 Blood Culture - Preliminary, Resulted No growth after 24 hours . All specim... 11/09/18 Blood Culture - Preliminary, Resulted No growth after 24 hours . All specim... 11/08/18 Blood Culture - Preliminary, Resulted No Growth after 48 hours. All Specime... 11/08/18 Blood Culture - Preliminary, Resulted No Growth after 48 hours. All Specime... 11/08/18 Blood Culture - Final, Complete Salmonella Group 11/08/18 Gastrointestinal Tract Panel (PCR) - Final, Resulted Salmonella Clostridium Difficile A/B Enteropathogenic E.coli 11/08/18 , Resulted Pending 11/09/18 Urine Culture - Final, Complete Ramonita Tang MD November 11, 2018 08:11
--- NOTE | 2018-11-11 08:13 | IPNPDOC ---
Text Note Date of Service The patient was seen on 11/10/18. NOTE Overnight he has become more agitated, and is not following commands this am. He appears to be having more difficulty breathing as well. He is still having BMs that are nonbloody, and no emesis reported. VSSAF NAD abd - soft, less distended, NT, no rebound or guarding labs - below A) 53y/o male with lactic acidosis secondary to hypoperfusion from pressors Colitis Ischemic colitis is unlikely P) consider intubation per Chip Separator hydration wean pressors abx will follow Izaiah Espinoza DO A-FIB/CHADSVASC A-FIB History Current/History of A-Fib/PAF?: No VS,Fishbone, I+O VS, Fishbone, I+O Vital Signs Date Time Temp Pulse Resp B/P (MAP) Pulse Ox O2 Delivery O2 Flow Rate FiO2 11/11/18 08:06 96 15 95 45 11/11/18 06:37 100/61 11/11/18 04:20 Ventilator 11/11/18 04:00 97.5 11/10/18 12:00 15.0 I&O- Last 24 Hours up to 6 AM 11/11/18 06:00 Intake Total 1802.7 ml Output Total 4855 ml Balance -3052.3 ml FRANCHESKA ESPINOZA DO November 11, 2018 08:13
--- NOTE | 2018-11-11 08:17 | IPNPDOC ---
Text Note Date of Service The patient was seen on 11/11/18. NOTE Status post intubation yesterday. He is also not tolerating tube feeds, and had high NGT output wit bilious drainage. BMs are still soft and brown. No reported pain. They are continuing to wean levophed down to 3. VSSAF NAD abd - soft, less distended, NT, no rebound or guarding labs - below A) 53y/o male with lactic acidosis secondary to hypoperfusion from pressors Colitis Ischemic colitis is unlikely respiratory distress partially secondary to aspiration ileus secondary to GI infection P) wean vent hydration wean pressors abx NGT to LIS ok to start tube feeds once NGT output turns clear and ileus has resolved will follow as needed Izaiah Espinoza DO A-FIB/CHADSVASC A-FIB History Current/History of A-Fib/PAF?: No VS,Fishbone, I+O VS, Fishbone, I+O Vital Signs Date Time Temp Pulse Resp B/P (MAP) Pulse Ox O2 Delivery O2 Flow Rate FiO2 11/11/18 08:06 96 15 95 45 11/11/18 06:37 100/61 11/11/18 04:20 Ventilator 11/11/18 04:00 97.5 11/10/18 12:00 15.0 I&O- Last 24 Hours up to 6 AM 11/11/18 06:00 Intake Total 1802.7 ml Output Total 4855 ml Balance -3052.3 ml FRANCHESKA ESPINOZA DO November 11, 2018 08:17
--- NOTE | 2018-11-11 08:18 | REP ---
Portable chest x-ray: Single view. History: Intubated patient. Comparison study: November 10, 2018. Findings: Endotracheal tube is again seen in good position at the level of the proximal clavicles. A nasogastric tube enters left upper quadrant of the abdomen. Left central venous line terminates in the superior vena cava region. Extensive infiltrates persist bilaterally in the lung lopez. Slight blunting of the right lateral pleural angle is again noted unchanged. Stable findings. Electronically Signed by Davis Cordova MD 11/11/2018 08:10 A
[2018-11-11] MEDS: CHLORHEXIDINE GLUCONATE 0.12 % 15ML UDC (PERIDEX ORAL RINSE) MT SCH ×2 (09:41→20:12)
[2018-11-11 11:25] LABS: HEMOGLOBIN 9.9 g/dl (13.5-17.5); MEAN CORPUSCULAR HGB CONC 30.9 g/dl (32.0-36.5); MEAN CORPUSCULAR VOLUME 87.2 fl (80.0-96.0); PLATELET COUNT, AUTOMATED 189 10^3/uL (150-450); RED BLOOD COUNT 3.67 10^6/uL (4.30-6.10); WHITE BLOOD COUNT 12.5 10^3/uL (4.0-10.0)
[2018-11-11 11:52] LABS: LYMPHOCYTES 2 % (16-52); MONOCYTES 1 % (0-8); NEUTROPHILS 97 % (35-75); PLATELET ESTIMATE NORMAL (NORMAL)
[2018-11-11 12:07] LABS: ALBUMIN 2.2 GM/DL (3.2-5.2); ALT/SGPT 63 U/L (12-78); BILIRUBIN,TOTAL 0.2 MG/DL (0.2-1.0); BLOOD UREA NITROGEN 18 MG/DL (7-18); CALCIUM LEVEL 8.4 MG/DL (8.5-10.1); CARBON DIOXIDE LEVEL 31 MEQ/L (21-32); CHLORIDE LEVEL 101 MEQ/L (98-107); CHOLESTEROL LEVEL 139 MG/DL (< 200); CPK CREATINE PHOSPHOKINASE 138 U/L (39-308); CREATININE FOR GFR 0.95 MG/DL (0.70-1.30); GLOMERULAR FILTRATION RATE > 60.0 (>56); GLUCOSE, FASTING 174 MG/DL (70-100); LDH LACTATE DEHYDROGENASE 492 U/L (87-241); MAGNESIUM LEVEL 2.4 MG/DL (1.8-2.4); PHOSPHORUS LEVEL 1.8 MG/DL (2.5-4.9); SODIUM LEVEL 139 MEQ/L (136-145); TOTAL PROTEIN 5.7 GM/DL (6.4-8.2); TRIGLYCERIDES LEVEL 448 MG/DL (<150)
[2018-11-11] MEDS: METOCLOPRAMIDE INJ 10MG/2ML VIAL (J2765) IV SCH ×3 (12:08→23:34)
[2018-11-11] MEDS: fentaNYL CITRATE 1,000 MCG in NS 80 ML IV SCH (13:33)
[2018-11-11] MEDS ORDERED: POTASSIUM PHOSPHATE INJ 18 MMOL in D5W 250 ML IV ONE (14:00)
--- NOTE | 2018-11-11 15:00 | PHACANCOPD ---
PHARMACY VANCOMYCIN DOSING Pt Demographics Demographics Patient Age:53 , Weight:76.000 , Gender: male Adjusted Body Weight Date: 11/11/18, Adjusted Body Weight: Kg Events Past 24 Hours Events Past 24 Hours: YES: Elevation in WBC; NO: Dialysis, Diuretic Therapy, Change in CrCl, Fever, Pending Diagnostics, Pending Procedures, Other Vancomycin Vancomycin indication: SEPSIS/PNA Vancomycin Target Ranges: 15-20 mcg/ml Vancomycin Load Y/N: Yes Load Dose Date Time Vancomycin Load Dose: 1500MG Date: 11/10 Time: 1200 Vancomycin Dose Date: 11/11/18. Current Vancomycin Dose: [1GM Q12H] Intermittent Dosing?: No Labs Labs Item Value Date Time White Blood Count 10.3 10^3/uL H 11/09/18 0516 White Blood Count 14.6 10^3/uL H 11/10/18 0458 White Blood Count 12.5 10^3/uL H 11/11/18 1107 Lactic Acid Level 4.9 MMOL/L *H 11/09/18 1743 Lactic Acid Followup at 4 Hours 3.7 MMOL/L *H 11/10/18 0001 Creatinine 1.20 MG/DL 11/10/18 0458 Creatinine 0.95 MG/DL 11/11/18 1107 Vital Signs Label Value Date Time Patient Temperature 97.5 degrees F 11/11/18 0400 Temperature Source Temporal 11/11/18 0400 Micro Microbiology 11/09/18 Blood Culture - Preliminary, Resulted No Growth after 48 hours. All Specime... 11/09/18 Blood Culture - Preliminary, Resulted No Growth after 48 hours. All Specime... 11/08/18 Blood Culture - Preliminary, Resulted No Growth after 48 hours. All Specime... 11/08/18 Blood Culture - Preliminary, Resulted No Growth after 48 hours. All Specime... 11/08/18 Blood Culture - Final, Complete Salmonella Group 11/08/18 Gastrointestinal Tract Panel (PCR) - Final, Resulted Salmonella Clostridium Difficile A/B Enteropathogenic E.coli 11/08/18 , Resulted Pending 11/11/18 Gram Stain, Received Pending 11/11/18 Sputum Culture, Received Pending 11/09/18 Urine Culture - Final, Complete Creatinine Clearance Date:11/11/18. Creatinine Clearance: . Assessment and Plan Maintaining Current Dose?: Yes Reason for dose change: No Dose Change Pharmacist Note Pharmacist Note Date: 11/11/18. Pharmacist note: Patient was empirically started on Vancomycin and is currently on Meropenem. He was admitted for septic shock secondary to a GI infection that grew Salmonella, E.Coli, and C.diff. He had one set of positive blood cultures for Salmonella. The patient has 2 more sets of blood cultures that are negative to date. His urine culture was negative and he is also has a sputum culture pending. Vancomycin was added for possible pneumonia. He was loaded with 1500mg of Vancomycin then continued on 1000mg IV q12h after. He has no history of Vancomycin use at [facility] and no history of MRSA. We will continue to monitor and make adjustments as necessary. [facility] November 11, 2018 15:00
--- NOTE | 2018-11-11 17:59 | CCN ---
DATE: 11/11/2018 NOTE: Mr. Brandt remains critically ill with acute hypoxemic respiratory failure leading to mechanical ventilation. He was intubated yesterday afternoon. His FiO2 has been able to be weaned overnight. He also required vasopressors with the epinephrine being weaned off and the Levophed being weaned down. He has not tolerated tube feeds and has significant residuals. He has remained afebrile. Blood cultures came back positive for Salmonella. On sedation holiday, he was agitated. He has thick yellow secretions. His movements appeared somewhat purposeful, as he did reach toward the endotracheal tube. There was one time when he may have opened his eyes and responded to his name, although I could not state that definitively. He was not following commands. The patient's family has declined any deep vein thrombosis (DVT) prophylaxis, including medical or mechanical. OBJECTIVE: PHYSICAL EXAMINATION: GENERAL: Mr. Brandt is lying in bed synchronous with the ventilator. VITAL SIGNS: Temperature 98.1, pulse 97, blood pressure 104/60 with a mean arterial pressure of 75, SpO2 of 95% on FiO2 of 0.45. HEENT: Anicteric. Pupils equal, round, and reactive to light and accommodation. Nares patent bilaterally. Oropharynx: Endotracheal tube and orogastric tube in place. Edema/post XRT changes to the right side. Trachea is midline. No thyromegaly. LYMPHATICS: Without cervical lymphadenopathy. LUNGS: Symmetric excursion. Good air entry. No wheeze, rhonchi or significant crackles. Diminished breath sounds at the bases bilaterally posteriorly. Normal I:E. No accessory muscle usage or retractions. CARDIOVASCULAR: Regular rate and rhythm. Normal S1, S2. No murmur, rub or gallop appreciated. ABDOMEN: Diminished bowel sounds. Soft. No hepatosplenomegaly or masses appreciated. EXTREMITIES: Warm and well perfused. Normal capillary refill. Without clubbing, cyanosis or significant edema. D LABORATORY DATA: Complete blood count (CBC) from this morning showed a hemoglobin of 9.9, hematocrit 32, platelet count 189,000. White blood cell count 12,500 with a differential of 97% neutrophils, 2% lymphocytes. Chemistry showed sodium 139, potassium 3.0, chloride 101, bicarbonate 31, anion gap 7, BUN 18, creatinine 1.0, glucose 174, calcium 8.4, phosphorous 1.8, magnesium 2.4, total bilirubin 0.2, AST 53, ALT 63, alkaline phosphatase 68, LDH 492, CK 138, total protein 5.7, albumin 2.2. Arterial blood gas this morning on PRVC with a rate of 15, tidal volume 420, PEEP of 7 was 7.49/39/100 with a measured saturation of 97% and a base excess of 5.7. Yesterday's input and output were 1641 in and 4975 out making him negative 3334. Thus far today, 592 in and 1080 out, making him negative 488. I reviewed his chest x-ray, as well as report from earlier today. That x-ray showed normal appearing cardiac silhouette, pulmonary vascular shadows. There are diffuse bilateral infiltrates. There is a blunting on the right pleural angle. Endotracheal tube is in good position. No change compared to chest x-ray from yesterday. Blood culture was positive for Salmonella. ASSESSMENT: 1. Acute hypoxemic respiratory failure leading to intubation. 2. Hypoxemia. Differential for this includes cardiogenic versus noncardiogenic pulmonary edema. There does not appear to be a focal infiltrate. His echocardiogram from 11/09/2018 was essentially normal making cardiogenic pulmonary edema less likely. I suspect that this is acute respiratory distress syndrome (ARDS), likely mild or moderate. He is not on a PEEP of 10 so I cannot state that accurately, but a PO2 of 99 on a PEEP of 7 would argue against it being severe. 3. Salmonella sepsis with shock. 4. Colitis and ileus, followed by surgery. 5. Chronic prednisone usage, on stress dose hydrocortisone. He is also on methylprednisolone. 6. Stool PCR positive for Salmonella, Clostridium (C.) difficile, and enteropathic Escherichia (E) coli . 7. Positive troponin, felt secondary to demand ischemia. 8. Chronic pain. At home, was on a fentanyl patch and morphine, per family. 9. Squamous cell carcinoma, reportedly stage IV. He has received XRT times two, cisplatin and Erbitux. 10. ETOH and tobacco usage, ongoing at the time of admission. RECOMMENDATIONS: 1. Given positive blood culture, we will deescalate antibiotics and place him on Levaquin. I will discontinue meropenem and vancomycin IV at this time. 2. Continue with oral vancomycin for C difficile positive. 3. We will send a sputum for gram stain and culture. If per chance there is an organism not covered by Levaquin, would consider directed therapy depending on how he is doing clinically. 4. We will discontinue the IV Solu-Medrol at this time as he is on stress dose hydrocortisone. That will need to be restarted when the stress dose is discontinued. 5. We will send a methicillin resistant Staphylococcus aureus (MRSA) swab. 6. We will follow surgery's recommendations regarding tube feeding, as he could not tolerate them. 7. We will start Reglan. 8. I spent considerable time discussing his medical condition with his sister and mother. I also spent considerable time explaining that DVT and pulmonary embolus are considered the number one preventable hospital complication. I explained to them that if he was a full code then he needed to be on this and it was not acceptable to not accept DVT prophylaxis. I explained the difference between complete anticoagulation, which their relative was on, versus DVT prophylaxis. I also discussed with them that they cannot compare what happens to others to what has happened to the individual and that we need to be allowed to treat him or he needs to consider a different status or a different institution. I also discussed with them that pain control in the setting of the intensive care unit (ICU) is based on how the patient is clinically doing and not based on what they are on as an outpatient. Critical care time was 70 minutes, not including procedure time.
[2018-11-11] MEDS: LevoFLOXacin IV 750 MG in APPROPRIATE DILUENT 1 EA IV SCH (18:00)
[2018-11-11] MEDS: PANTOPRAZOLE 40MG INJ (PROTONIX) (C9113) IV SCH (20:12)
[2018-11-12] VITALS (56 sets, daily range): BP systolic 69–117; BP diastolic 45–76; O2SAT 94–97
[2018-11-12] MEDS: PROPOFOL 1,000 MG in APPROPRIATE DILUENT 1 EA IV SCH ×7 (00:38→23:52)
[2018-11-12] MEDS: IPRATROPIUM 0.5MG/ALBUTEROL 2.5MG INH SOL UD 3ML (DUONEB)(J7620) NEB SCH ×4 (02:00→20:33)
[2018-11-12] MEDS: MIDAZOLAM INJ 2 MG/2 ML VIAL (J2250) IV PRN ×10 (02:11→20:53)
[2018-11-12 05:20] LABS: BASO % 0.2 % (0.0-1.0); HEMATOCRIT 31.9 % (42.0-52.0); HEMOGLOBIN 10.1 g/dl (13.5-17.5); LYMPH # 0.4 10^3/uL (1.5-4.5); LYMPH % 3.3 % (24.0-44.0); MEAN CORPUSCULAR HEMOGLOBIN 28.3 pg (27.0-33.0); MEAN CORPUSCULAR HGB CONC 31.7 g/dl (32.0-36.5); MEAN CORPUSCULAR VOLUME 89.4 fl (80.0-96.0); MONO # 0.5 10^3/uL (0.0-0.8); MONO % 3.7 % (0.0-5.0); NEUTROPHILS # 12.3 10^3/uL (1.8-7.7); PLATELET COUNT, AUTOMATED 178 10^3/uL (150-450); RED BLOOD COUNT 3.57 10^6/uL (4.30-6.10); WHITE BLOOD COUNT 13.3 10^3/uL (4.0-10.0)
[2018-11-12] MEDS: HYDROCORTISONE 100 MG/2 ML VIAL (J1720) IV SCH ×3 (05:31→20:54)
[2018-11-12] MEDS: HEPARIN SOD (PORCINE) 5000 UNITS/ML VIAL SC SCH ×3 (05:31→20:55)
[2018-11-12] MEDS: METOCLOPRAMIDE INJ 10MG/2ML VIAL (J2765) IV SCH ×4 (05:31→23:51)
[2018-11-12] MEDS: VANCOMYCIN ORAL SOL 250MG/5ML ORAL SYRINGE PR SCH ×4 (05:32→23:51)
[2018-11-12 05:51] LABS: ALBUMIN 2.2 GM/DL (3.2-5.2); ALT/SGPT 57 U/L (12-78); BILIRUBIN,TOTAL 0.2 MG/DL (0.2-1.0); BLOOD UREA NITROGEN 14 MG/DL (7-18); CALCIUM LEVEL 8.1 MG/DL (8.5-10.1); CARBON DIOXIDE LEVEL 31 MEQ/L (21-32); CHLORIDE LEVEL 103 MEQ/L (98-107); CHOLESTEROL LEVEL 155 MG/DL (< 200); CPK CREATINE PHOSPHOKINASE 63 U/L (39-308); CREATININE FOR GFR 0.73 MG/DL (0.70-1.30); GLOMERULAR FILTRATION RATE > 60.0 (>56); GLUCOSE, FASTING 117 MG/DL (70-100); LDH LACTATE DEHYDROGENASE 427 U/L (87-241); MAGNESIUM LEVEL 2.1 MG/DL (1.8-2.4); PHOSPHORUS LEVEL 2.1 MG/DL (2.5-4.9); SODIUM LEVEL 142 MEQ/L (136-145); TOTAL PROTEIN 4.9 GM/DL (6.4-8.2); TRIGLYCERIDES LEVEL 512 MG/DL (<150)
[2018-11-12] MEDS: SODIUM CHLORIDE 0.9% INJ 10 ML SYR IV SCH ×4 (06:00→22:00)
[2018-11-12 06:09] LABS: ABG BASE EXCESS 8.6 (-2.0-2.0); ABG HCO3 32.7 MEQ/L (22.0-26.0); ABG O2 SATURATION 98.5 % (95.0-99.0); ABG PARTIAL PRESSURE CO2 43.3 mmHg (35.0-45.0); ABG PARTIAL PRESSURE O2 128.3 mmHg (75.0-100.0); ABG STANDARD HCO3 32.4 MEQ/L (22.0-26.0); ABG pH (ARTERIAL) 7.496 UNITS (7.350-7.450)
[2018-11-12] MEDS: SLF 3 ML SYR IV SCH ×3 (06:12→22:00)
--- NOTE | 2018-11-12 08:07 | REP ---
Oral chest x-ray: Single view. History: Intubated patient. Comparison study: November 11, 2018. Findings: EKG monitoring electrodes overlie the chest. Oxygen delivery tubing is seen. Endotracheal tube is seen in good position at the level of the transverse aorta. A left-sided [id number] catheter is seen in place with its tip in the expected location of the superior vena cava. A nasogastric tube enters left upper quadrant of the abdomen. There are interstitial infiltrates bilaterally in the upper lobes. No new parenchymal opacity is seen. Electronically Signed by Davis Cordova MD 11/12/2018 07:58 A
[2018-11-12] MEDS: CHLORHEXIDINE GLUCONATE 0.12 % 15ML UDC (PERIDEX ORAL RINSE) MT SCH ×2 (08:16→20:54)
[2018-11-12] MEDS ORDERED: POTASSIUM PHOSPHATE INJ 18 MMOL in D5W 250 ML IV ONE (10:00)
[2018-11-12] MEDS: NICOTINE 21MG/24HR 1 EA TRANSDERMAL TD SCH (13:44)
[2018-11-12] MEDS: fentaNYL CITRATE 1,000 MCG in NS 80 ML IV SCH (13:49)
[2018-11-12] MEDS: LevoFLOXacin IV 750 MG in APPROPRIATE DILUENT 1 EA IV SCH (17:14)
[2018-11-12] MEDS: PANTOPRAZOLE 40MG INJ (PROTONIX) (C9113) IV SCH (20:54)
--- NOTE | 2018-11-12 22:43 | CCN ---
DATE: 11/12/2018 NOTE: Mr. Brandt remains critical ill with acute hypoxic respiratory failure leading to mechanical ventilation. He also had sepsis with shock secondary to salmonella, also with Clostridium difficile colitis. Around 6 a.m., his Levophed was weaned off. He still has significant gastrointestinal (GI) output precluding tube feedings. On his sedation holiday, he was again very agitated. He was making purposeful movements, but he was not following any commands. He is still requiring significant pressor on the ventilator for oxygenation, though his FiO2 has been able to be weaned. OBJECTIVE: PHYSICAL EXAMINATION: GENERAL: Mr. Brandt is intubated and synchronous with the ventilator. He is very agitated during his sedation holiday and it is difficult to get him to calm down. VITAL SIGNS: Temperature 97.2 with a T-max of 97.7, pulse 87, respiratory rate 16, blood pressure 87/53 with a MAP of 64, SpO2 100% on a FiO2 0.45. HEENT: Anicteric. Nares: Patent bilaterally. Oropharynx: ET tube and OG tube in place. Faces: Radiation changes on the right neck without thyromegaly, masses. Trachea is midline. LYMPH: Without cervical or supraclavicular lymphadenopathy. CHEST: Symmetric excursion, good air entry, no wheeze, rhonchi or crackle. On tidal excursion, very diminished breath sounds at the bases bilaterally. Normal I:E. No accessory muscle use or retractions. CARDIOVASCULAR: Regular rate and rhythm. Normal S1, S2, no murmur, rub or gallop appreciated. ABDOMEN: Diminished bowel sounds, soft, nondistended. No hepatosplenomegaly or masses appreciated. EXTREMITIES: Warm and well perfused. Normal capillary refill. No clubbing, cyanosis or significant edema. LABORATORY DATA: Complete blood count (CBC) shows a hemoglobin of 10.1, hematocrit 31.9, platelet count 178,000, white blood cell count 13,300 with a differential of 92% neutrophils, 3% lymphocytes, 4% monocytes. Chemistry shows sodium 142, potassium 3.0, chloride 103, bicarbonate 31, anion gap 8, BUN 14, creatinine 0.7, glucose 117, calcium 8.1, phosphorus 2.1, magnesium 2.1, total bilirubin 0.2, AST 36, ALT 57, alkaline phosphatase 60, LDH 427, CK 63, total protein 4.9, albumin 2.2. Arterial blood gas this morning on PRVC with tidal volume of 420 and a rate of 15, PEEP of 9, FiO2 of 0.45 was 7.5/43/128 and a measured saturation of 99% and a base access of 8.6. Yesterday's input and output was 1230 in and 3090 out making him negative 1160. Thus far today 659 in and 975 out making him negative 316. I reviewed his chest x-rays, as well as a report from earlier today. X-ray showed normal appearing cardiac silhouette and pulmonary vascular shadows. Normal appearing mediastinal region. There remain diffuse bilateral infiltrates. No consolidated region. ET tube is in good position. No significant change compared to chest x-ray from yesterday. IMPRESSION: 1. Acute hypoxic respiratory failure leading to mechanical ventilation. He meets the criteria of respiratory distress syndrome (ARDS). He has a PEEP greater than 5 and his PA FiO2 ratio less than [address] as mild acute respiratory distress syndrome (ARDS). His echocardiogram did not suggest a cardiac cause for pulmonary edema. 2. Septic shock secondary to salmonella, improving. He is now off vasopressors. 3. Colitis. An ileus, followed by surgery. 4. Chronic prednisone usage, decreasing stress dose hydrocortisone. 5. Stool PCR positive for salmonella, Clostridium difficile, enteropathic Escherichia coli. 6. Chronic pain. At home, he is on a fentanyl patch, as well as morphine. Here is on a fentanyl drip. 7. Squamous cell carcinoma, however reportedly stage IV. He has received XRT times two, cisplatin, Erbitux. He was being considered for immunologic agent. 8. ETOH and tobacco usage. Both ongoing at the time of admission. 9. Infectious disease, on Levaquin and by mouth vancomycin. 10. Deep vein thrombosis (DVT) prophylaxis, SCD and TEDs. 11. Gastrointestinal (GI). For stress ulcer prophylaxis, proton pump inhibitor. 12. Nutrition: Currently, nothing by mouth, not tolerated by mouth feeds. RECOMMENDATION: 1. Yesterday antibiotics were de-escalated and he is doing well on Levaquin. 2. Will continue by mouth vancomycin for Clostridium difficile. 3. Appreciate surgery input. 4. If his gastrointestinal (GI) output does not diminish today, we will start total parenteral nutrition (TPN) tomorrow. He is self diuresing and we should be able to give him volume resuscitation with total parenteral nutrition (TPN). 5. Multiple questions were answered for one of his family members to the best of my ability. PROGNOSIS: Guarded. CRITICAL CARE TIME: 45 minutes, not including procedure time.
[2018-11-13] VITALS (27 sets, daily range): BP systolic 84–108; BP diastolic 48–67; O2SAT 94–98
[2018-11-13] MEDS: IPRATROPIUM 0.5MG/ALBUTEROL 2.5MG INH SOL UD 3ML (DUONEB)(J7620) NEB SCH ×4 (00:31→19:21)
[2018-11-13] MEDS: MIDAZOLAM INJ 2 MG/2 ML VIAL (J2250) IV PRN ×9 (01:22→22:59)
[2018-11-13] MEDS: PROPOFOL 1,000 MG in APPROPRIATE DILUENT 1 EA IV SCH ×6 (03:29→21:09)
[2018-11-13] MEDS: HEPARIN SOD (PORCINE) 5000 UNITS/ML VIAL SC SCH ×3 (05:39→21:55)
[2018-11-13] MEDS: VANCOMYCIN ORAL SOL 250MG/5ML ORAL SYRINGE PR SCH ×3 (05:39→17:15)
[2018-11-13] MEDS: HYDROCORTISONE 100 MG/2 ML VIAL (J1720) IV SCH (05:39)
[2018-11-13] MEDS: METOCLOPRAMIDE INJ 10MG/2ML VIAL (J2765) IV SCH ×3 (05:40→17:15)
[2018-11-13] MEDS: SLF 3 ML SYR IV SCH ×3 (05:47→22:00)
[2018-11-13] MEDS: SODIUM CHLORIDE 0.9% INJ 10 ML SYR IV SCH ×4 (05:47→22:00)
[2018-11-13 06:02] LABS: BASO % 0.2 % (0.0-1.0); EOS % 0.4 % (0.0-3.0); HEMATOCRIT 30.7 % (42.0-52.0); HEMOGLOBIN 9.5 g/dl (13.5-17.5); LYMPH # 0.4 10^3/uL (1.5-4.5); LYMPH % 6.7 % (24.0-44.0); MEAN CORPUSCULAR HGB CONC 30.9 g/dl (32.0-36.5); MEAN CORPUSCULAR VOLUME 90.6 fl (80.0-96.0); MONO # 0.4 10^3/uL (0.0-0.8); MONO % 7.7 % (0.0-5.0); NEUTROPHILS # 4.3 10^3/uL (1.8-7.7); NEUTROPHILS % 83.3 % (36.0-66.0); PLATELET COUNT, AUTOMATED 192 10^3/uL (150-450); RED BLOOD COUNT 3.39 10^6/uL (4.30-6.10); WHITE BLOOD COUNT 5.2 10^3/uL (4.0-10.0)
[2018-11-13 06:34] LABS: ALBUMIN 2.1 GM/DL (3.2-5.2); ALT/SGPT 48 U/L (12-78); BILIRUBIN,TOTAL 0.2 MG/DL (0.2-1.0); BLOOD UREA NITROGEN 14 MG/DL (7-18); CALCIUM LEVEL 8.2 MG/DL (8.5-10.1); CARBON DIOXIDE LEVEL 33 MEQ/L (21-32); CHLORIDE LEVEL 106 MEQ/L (98-107); CHOLESTEROL LEVEL 158 MG/DL (< 200); CPK CREATINE PHOSPHOKINASE 46 U/L (39-308); GLOMERULAR FILTRATION RATE > 60.0 (>56); GLUCOSE, FASTING 82 MG/DL (70-100); LDH LACTATE DEHYDROGENASE 482 U/L (87-241); MAGNESIUM LEVEL 2.1 MG/DL (1.8-2.4); PHOSPHORUS LEVEL 2.5 MG/DL (2.5-4.9); POTASSIUM SERUM 3.2 MEQ/L (3.5-5.1); SODIUM LEVEL 145 MEQ/L (136-145); TOTAL PROTEIN 4.9 GM/DL (6.4-8.2); TRIGLYCERIDES LEVEL 551 MG/DL (<150)
[2018-11-13] MEDS: CHLORHEXIDINE GLUCONATE 0.12 % 15ML UDC (PERIDEX ORAL RINSE) MT SCH ×2 (08:19→21:55)
[2018-11-13] MEDS: NICOTINE 21MG/24HR 1 EA TRANSDERMAL TD SCH (08:19)
[2018-11-13] MEDS: KCL 20MEQ IN 100ML SWI (KRUN) 20 MEQ in APPROPRIATE DILUENT 1 EA IV SCH ×4 (08:51→09:51)
--- NOTE | 2018-11-13 10:04 | REP ---
Portable chest x-ray: Single view. History: Intubated patient. Comparison study: November 12, 2018. Findings: Endotracheal tube is seen in good position just above the transverse aorta. An NG tube enters left upper quadrant. EKG monitoring electrodes are seen. A left-sided [id number] catheter is seen in place. Bilateral interstitial infiltrates are again seen although these are somewhat improved. There is slight blunting of the right lateral pleural angle. No new infiltrate is seen. There is pleuroparenchymal fibrosis along the left heart border. Electronically Signed by Davis Cordova MD 11/13/2018 07:42 A
--- NOTE | 2018-11-13 14:25 | CCN ---
DATE: 11/13/2018 NOTE: Mr. Brandt remains critically ill with acute hypoxemic respiratory failure leading to mechanical ventilation. He has ARDS which by Pa/FiO2 ratio done yesterday was mild at that time. He also had shock secondary to salmonella. Furthermore, he has C. difficile colitis. He has now been off Levophed for 24 hours. His GI output has decreased. This morning on a non-complete sedation holiday, he was following commands such as to wiggle his toes. He still was somewhat agitated and was given one dose of Versed following the decreased sedation for the holiday. No stool output yesterday. His white count has normalized though. That is in part secondary to decreasing his stress dosed hydrocortisone. OBJECTIVE: PHYSICAL EXAMINATION: GENERAL: Mr. Brandt is lying in bed sedated and synchronous with the ventilator. HEENT: Anicteric. Pupils 1-2 mm and reactive. Nares: Patent bilaterally. Moist mucosa. Oropharynx: ET tube and OG tube in place. NECK: Supple, without jugular venous distention (JVD), without thyromegaly or masses. Trachea is midline. LYMPH: Without cervical or supraclavicular lymphadenopathy. LUNGS: Symmetric excursion, good air entry, no wheeze, rhonchi or significant crackles. Decreased breath sounds at the bases bilaterally. Normal I:E. No accessory muscle usage or retractions. CARDIOVASCULAR: Regular rate and rhythm. Normal S1, S2, no murmur, rub or gallop appreciated. ABDOMEN: Positive bowel sounds. Soft, nondistended. EXTREMITIES: Warm and well perfused, without significant edema. No clubbing or cyanosis. Palpable pedal pulses bilaterally. LABORATORY DATA: CBC from this morning shows a hemoglobin of 9.5, hematocrit 30.7, platelet count 192,000, white blood cell count 5200 with a differential of 82% neutrophils, 7% lymphocytes, 8% monocytes. Chemistries show sodium 145, potassium 3.2, chloride 106, bicarbonate 33, anion gap 6, BUN 14, creatinine 0.7, glucose 82, calcium 8.2, phosphorus 2.5, total bilirubin 2.1, AST 32, ALT 48, alkaline phosphatase 62, LDH 482, CK 46, total protein 4.9, albumin 2.1. His sputum culture grew heavy yeast. Methicillin-resistant Staphylococcus aureus (MRSA) screen was negative. Yesterday's intake and output showed 830.4 in and 1245 out, making him negative 415. Thus far today, 285 in and 571 out, making him negative 286. Weight 71.4 kg. I reviewed his chest x-ray as well the report. That x-ray showed normal appearing cardiac silhouette and pulmonary vascular shadows. Normal appearing mediastinal region. Decreased bilateral infiltrates. Blunting of the right costophrenic angle. ET tube in good position. IMPRESSION: 1. Acute hypoxic respiratory failure leading to mechanical ventilation. He has met the criteria for ARDS, mild yesterday. 2. Septic shock secondary to salmonella. He has now been off all vasopressors for 24 hours. 3. Colitis and ileus, followed by surgery. 4. Chronic prednisone usage, on decreasing stress doses of hydrocortisone. 5. Stool PCR positive for salmonella, C. difficile and enteropathic E. Coli. 6. Chronic pain. At home, he is on a fentanyl patch, as well as morphine. Here is on a fentanyl drip at 25 mcg per hour. 7. Squamous cell carcinoma, reportedly stage IV. He has received XRT times two, cisplatin, Erbitux. He was being considered for immunologic agent. 8. ETOH and tobacco usage, ongoing at the time of admission. 9. Infectious disease, on Levaquin and vancomycin. 10. Deep vein thrombosis (DVT) prophylaxis with subcutaneous heparin, sequential compression devices (SCD), and thromboembolic deterrent stockings (TEDS). 11. Stress ulcer prophylaxis with proton pump inhibitor. 12. Nutrition. Currently nothing by mouth. RECOMMENDATION: 1. Will begin to wean his PEEP. 2. As his GI output has decreased, will again try trickle feeds. I have asked that they be started at 20 mg per hour and not advanced. 3. If his residual is 80 or higher at 4 hours, we will discontinue the tube feeds and start TPN. 4. Continue Reglan. 5. Will discontinue the hydrocortisone at this time and change him over the Solu-Medrol 40 IV every 12 hours. His baseline prednisone is 20 mg by mouth twice a day, which would be the equivalent of Solu-Medrol 16 mg every 12 hours. 6. If he is tolerating tube feeds would like to see if we would discontinue his central line tomorrow. He already has a port that is not being used. He would require one for a full IV in addition to access for the port. At the present time his only IV usage is for antibiotics, sedation and pain medications. CRITICAL CARE TIME: 35 minutes, not including procedure time.
[2018-11-13] MEDS: fentaNYL CITRATE 1,000 MCG in NS 80 ML IV SCH (14:37)
[2018-11-13] MEDS: LevoFLOXacin IV 750 MG in APPROPRIATE DILUENT 1 EA IV SCH (17:15)
[2018-11-13] MEDS: methylPREDNISolone INJ 40 MG/1 ML VIAL (J2920) IV SCH (17:15)
[2018-11-13] MEDS: PANTOPRAZOLE 40MG INJ (PROTONIX) (C9113) IV SCH (21:55)
[2018-11-14] VITALS (18 sets, daily range): BP systolic 83–120; BP diastolic 54–77; O2SAT 93–97
[2018-11-14] MEDS: MIDAZOLAM INJ 2 MG/2 ML VIAL (J2250) IV PRN ×4 (00:07→07:39)
[2018-11-14] MEDS: METOCLOPRAMIDE INJ 10MG/2ML VIAL (J2765) IV SCH ×5 (00:07→23:16)
[2018-11-14] MEDS: VANCOMYCIN ORAL SOL 250MG/5ML ORAL SYRINGE PR SCH ×2 (00:08→05:38)
[2018-11-14] MEDS: PROPOFOL 1,000 MG in APPROPRIATE DILUENT 1 EA IV SCH ×3 (00:24→06:52)
[2018-11-14] MEDS: IPRATROPIUM 0.5MG/ALBUTEROL 2.5MG INH SOL UD 3ML (DUONEB)(J7620) NEB SCH ×2 (01:07→08:10)
[2018-11-14] MEDS: methylPREDNISolone INJ 40 MG/1 ML VIAL (J2920) IV SCH ×2 (05:38→17:07)
[2018-11-14] MEDS: HEPARIN SOD (PORCINE) 5000 UNITS/ML VIAL SC SCH ×3 (05:38→20:10)
[2018-11-14] MEDS: SODIUM CHLORIDE 0.9% INJ 10 ML SYR IV SCH ×2 (05:39→08:16)
[2018-11-14] MEDS: SLF 3 ML SYR IV SCH ×3 (06:00→20:09)
[2018-11-14 06:26] LABS: HEMATOCRIT 33.6 % (42.0-52.0); HEMOGLOBIN 10.1 g/dl (13.5-17.5); MEAN CORPUSCULAR HGB CONC 30.1 g/dl (32.0-36.5); MEAN CORPUSCULAR VOLUME 89.8 fl (80.0-96.0); PLATELET COUNT, AUTOMATED 272 10^3/uL (150-450); RED BLOOD COUNT 3.74 10^6/uL (4.30-6.10); WHITE BLOOD COUNT 4.9 10^3/uL (4.0-10.0)
[2018-11-14 06:52] LABS: ALBUMIN 2.3 GM/DL (3.2-5.2); ALT/SGPT 94 U/L (12-78); BILIRUBIN,TOTAL 0.3 MG/DL (0.2-1.0); BLOOD UREA NITROGEN 12 MG/DL (7-18); CALCIUM LEVEL 8.2 MG/DL (8.5-10.1); CARBON DIOXIDE LEVEL 32 MEQ/L (21-32); CHLORIDE LEVEL 108 MEQ/L (98-107); CHOLESTEROL LEVEL 194 MG/DL (< 200); CPK CREATINE PHOSPHOKINASE 42 U/L (39-308); CREATININE FOR GFR 0.74 MG/DL (0.70-1.30); GLOMERULAR FILTRATION RATE > 60.0 (>56); GLUCOSE, FASTING 91 MG/DL (70-100); LDH LACTATE DEHYDROGENASE 430 U/L (87-241); MAGNESIUM LEVEL 1.8 MG/DL (1.8-2.4); PHOSPHORUS LEVEL 2.1 MG/DL (2.5-4.9); POTASSIUM SERUM 3.1 MEQ/L (3.5-5.1); SODIUM LEVEL 144 MEQ/L (136-145); TOTAL PROTEIN 5.7 GM/DL (6.4-8.2); TRIGLYCERIDES LEVEL 574 MG/DL (<150)
[2018-11-14 07:00] LABS: ATYPICAL LYMPH 1 % (0-5); EOSINOPHILS 1 % (0-5); LYMPHOCYTES 8 % (16-52); MONOCYTES 11 % (0-8); NEUTROPHILS 77 % (35-75)
[2018-11-14 07:01] LABS: PLATELET ESTIMATE NORMAL (NORMAL)
--- NOTE | 2018-11-14 07:57 | REP ---
Portable chest x-ray: Single view. History: Intubated patient. Comparison chest x-ray: November 13, 2018. Findings: Endotracheal tube is seen in good position at the level of the proximal clavicles. An NG tube enters left upper quadrant. A left-sided Aegmev-F-Fkcs catheter terminates in the superior vena cava as before. EKG electrodes are noted. Interstitial infiltrate in the right upper lobe is improved today. Fibro atelectatic and interstitial infiltrate persists on the left. There is slight blunting of the right pleural angle. No new infiltrate is seen. Electronically Signed by Davis Cordova MD 11/14/2018 07:49 A
[2018-11-14] MEDS: NICOTINE 21MG/24HR 1 EA TRANSDERMAL TD SCH (08:16)
[2018-11-14] MEDS: CHLORHEXIDINE GLUCONATE 0.12 % 15ML UDC (PERIDEX ORAL RINSE) MT SCH (08:16)
[2018-11-14] MEDS ORDERED: fentaNYL 25 MCG/HR PATCH TOP SCH (09:00)
[2018-11-14 09:21] LABS: ABG BASE EXCESS 4.4 (-2.0-2.0); ABG HCO3 28.1 MEQ/L (22.0-26.0); ABG O2 SATURATION 91.9 % (95.0-99.0); ABG PARTIAL PRESSURE CO2 38.7 mmHg (35.0-45.0); ABG PARTIAL PRESSURE O2 65.1 mmHg (75.0-100.0); ABG STANDARD HCO3 28.3 MEQ/L (22.0-26.0); ABG TOTAL CO2 29.3 MEQ/L (22.0-29.0); ABG pH (ARTERIAL) 7.479 UNITS (7.350-7.450)
--- NOTE | 2018-11-14 09:44 | CR ---
DATE OF CONSULTATION: 11/09/2018 REASON FOR CONSULT: Possible ischemic colitis. HISTORY OF PRESENT ILLNESS: The patient is a 53-year-old male currently with stage IV head and neck cancer, has undergone chemo and radiation. He came into emergency room on the with complaints of abdominal pain and diarrhea, as well as being very weak and tired. He was hypotensive, tachycardic in the ER, was started on treatment for sepsis with Cipro, Flagyl and vancomycin. He was started on fluids and he was found to be positive for C. Difficile, E. coli and salmonella in his stool. He was admitted to the ICU. He is on three pressors. During that time his lactic acid elevated and remained elevated. Because of this I was asked to evaluate to make sure he was not developing some ischemic colitis due to the lactic acidosis. Currently he is awake, alert, able to answer questions appropriately. Denies any abdominal pains. No nausea or vomiting. No fevers. Base complaint is shortness of breath and some back pain. He is having multiple loose stools, but denies any blood in them, denies any abdominal pains the past. No recent travel or trauma. He is still undergoing therapy for his cancer as well. PAST MEDICAL HISTORY: Squamous cell oropharyngeal cancer. Coronary artery disease. Hypertension. Gastroesophageal reflux disease. Nephrolithiasis. Anxiety. Depression. Arthritis. PAST SURGICAL HISTORY: Cholecystectomy. Heart stent. Feeding tube. Chemo placement. FAMILY HISTORY: Noncontributory. SOCIAL HISTORY: Smokes pack a day. Drinks beer daily. Denies drug abuse. ALLERGIES: None. HOME MEDICATIONS: Please see med rec. REVIEW OF SYSTEMS: Pertinent positives and negatives as stated in the HPI. PHYSICAL EXAMINATION GENERAL: Patient is alert and oriented times three. No acute distress. VITALS: Temperature is 100.4, pulse 102, respirations 16, blood pressure 82/52, pulse ox 94% on 4 liters nasal cannula. HEENT: Pupils equal round react to light accommodation. HEART: S1, S2 slightly tachy. LUNGS: Decreased breath sounds bilaterally. ABDOMEN: Soft, distended, nontender. Bowel sounds hyperactive. EXTREMITIES: No clubbing, cyanosis or edema. LABS: White count 10.3, hemoglobin 11.5, platelets 243, potassium 4.4, creatinine 2.55, lactic acid 5.2 up to 7.7. IMAGING STUDIES: Chest x-ray shows discoid atelectasis and consolidation in the right base medially, increased from previous exam, which is consistent with pneumonia and atelectasis. ASSESSMENT/PLAN: The patient 53-year-old male with stage IV head and neck cancer currently presenting with an infectious colitis with C. Difficile, E. Coli, salmonella. He is currently septic from that, requiring multiple pressors. His abdomen is distended; however, it is very soft and nontender, likely secondary to a colonic ileus from the extensive infection, less likely to be related to ischemic colitis. Lactic acidosis is likely all secondary to hypoperfusion. At this point, since he is nontender, has no pain, no rigidity of the abdomen, and no blood in his stools, I do not see a reason to do any colonoscopy. There is likely some portion of ischemia related to the hypoperfusion from all the pressor support; however, at this point it seems to be that it could very well be reversible. I would continue to follow closely. If he starts to develop increased abdominal pain or bloody stools, then we can consider urgent colonoscopy and possibly surgery if necessary at that time.
[2018-11-14] MEDS ORDERED: ALBUTEROL 90 MCG/ACT 8GM HFA INHALER INH PRN (09:45)
[2018-11-14] MEDS ORDERED: POTASSIUM PHOSPHATE INJ 20 MMOL in D5W 250 ML IV ONE (10:00)
--- NOTE | 2018-11-14 10:45 | CCN ---
DATE: 11/14/2018 Mr. Brandt remains critically ill with acute hypoxemic respiratory failure leading to mechanical ventilation secondary to acute respiratory distress syndrome (ARDS). He also had septic shock secondary to Salmonella which is resolved. He has been off all vasopressors for 48 hours. His white blood cell count has normalized. Yesterday, he was started on "trickle" tube feeds and tolerated those well. He had smears for stools, but has not had any significant stool output in the past 48 hours. He has tolerated taking his PEEP on the ventilator down to 5. This morning, he is alert, awake, and following commands. He feels that he would be able to breathe without the endotracheal tube in. He does not complain or indicate any discomfort. OBJECTIVE/PHYSICAL EXAMINATION: General: Mr. Brandt is intubated and synchronous with the ventilator. Vital Signs: Temperature 98 with a T-max of 98.1. Respiratory rate 18. Blood pressure 95/62. MAP 73. Pulse 87. SpO2 93% on a FiO2 of 0.5. HEENT: Anicteric. LOBITO. Nares: Patent bilaterally. Moist mucosa. Oropharynx with ET tube and OG tube in place. Neck supple. Without jugular venous distention (JVD). Without thyromegaly, masses. Trachea is midline. Lymphs: Without cervical or supraclavicular lymphadenopathy. Chest: Normal shaped lungs. Symmetric excursion. Good air entry. No wheeze, rhonchi or significant crackle on tidal excursion. Diminished breath sounds at the bases bilaterally. Normal I:E. No accessory muscle use or retractions. Cardiovascular: Regular rate and rhythm with a normal S1 and S2. No murmur, rub or gallop appreciated. Abdomen: Soft. Nondistended. Positive bowel sounds. He does not appear to indicate tenderness on palpation. Extremities: Warm and well perfused, without clubbing, cyanosis or significant edema. Palpable pedal pulses bilaterally. No clubbing or cyanosis. LABORATORY DATA: CBC from this morning showed a hemoglobin of 10.1, hematocrit 33.6, platelet count 272,000, white blood cell count 4,900, with a differential with 77% neutrophils, 2% bands, 8% lymphocytes and 11% monocytes. Chemistries with sodium 144, potassium 3.1, chloride 108, bicarbonate 32, anion gap 4, BUN 12, creatinine 0.7, glucose 91, calcium 8.2, phosphorus 2.1, magnesium 1.8, total bilirubin 0.3, AST 72, ALT 94, alkaline phosphatase 75, LDH 430, CK 42, total protein 5.7, albumin 2.3. I reviewed his chest x-ray as well as the report from earlier today. That x-ray showed normal appearing cardiac silhouette, pulmonary vascular shadows. There remained bilateral infiltrates with perhaps slight improvement, particularly in the right. There is a blunting of the right costophrenic angle. ET tube is in good position. Yesterday's ins and outs showed 1288 in and 1646 out, making him negative 358. Thus far today, 446 in and 500 out, making him negative 54. Weight 71.4 kg. IMPRESSION: 1. Acute hypoxemic respiratory failure secondary to ARDS. 2. Septic shock secondary to Salmonella. 3. Colitis and ileus, followed by surgery. 4. Stool PCR positive for Salmonella, Clostridium difficile, and enteropathic E. Coli. 5. Chronic prednisone usage, on decreasing systemic corticosteroids. Off stress dose of hydrocortisone. 6. Chronic pain. He has done well on a fentanyl drip at 25 mcg/hr. 7. Squamous cell carcinoma, stage IV. He has received XRT times two, cisplatin, ERBITUX. He is being considered for an immunologic agent. 8. ETOH and tobacco usage, ongoing at the time of admission. 9. Infectious disease, on Levaquin and vancomycin. He has been on treatment for C. difficile, this is day 6 out of 10-14 days. For his Salmonella treatment, he has been on an appropriate antibiotic for, either by ciprofloxacin, meropenem, and levofloxacin since admission, making this day 6. 10. Stress ulcer prophylaxis with proton pump inhibitor. 11. Deep vein thrombosis (DVT) prophylaxis with SCD, TEDS and subcutaneous heparin. 12. Nutrition. He was tolerating trickle feeds. RECOMMENDATIONS: 1. Will assess for extubation tube. Will change his vancomycin from OK to by mouth as he is tolerating feeds. 2. Will continue Levaquin. 3. Will place a fentanyl patch and discontinue his drip fentanyl. ADDENDUM: Mr. Brandt went on to a weaning trial consisting of pressure support of 5 and a PEEP of 5. On this trial, he was able to spontaneously increase his tidal volume on command around 770 mL. His rapid shallow breathing index was in the 40s, which would predict success. An arterial blood gas after being on these settings for between 30 and 45 minutes was 7.48/39/65 with a measured saturation of 92%. This was on an oxygen of 0.3. He was successfully extubated and now appears very comfortable on high flow nasal cannula at 2 liters. Will get him out of bed to a chair. When he is deemed ready to try bedside swallow evaluation, we will do so. However, we need to be careful given his oropharynx changes secondary to radiation to make sure that he can swallow well before initiating a diet higher than clears. This may require a formal assessment by speech therapy. Critical care time 40 minutes, not including procedure time.
[2018-11-14] MEDS: COMBIVENT RESPIMAT 100-20MCG INHALER 4GM INH SCH ×3 (11:10→21:43)
[2018-11-14] MEDS: VANCOMYCIN ORAL SOL 250MG/5ML ORAL SYRINGE PO SCH ×3 (11:41→23:29)
[2018-11-14] MEDS: ACETAMINOPHEN TAB 650MG DOSE (2X325MG) PO PRN ×2 (15:26→22:38)
--- NOTE | 2018-11-14 15:36 | NUR ---
Recommend pureed solids, thin liquids, medications in puree assist & crushed prn, staff assist for PO intake d/t cognition, upright position during meals, OOB if tolerated. Dysphagia tx. Addendum: 11/14/18 at [address] [facility] Amended: Links added.
--- NOTE | 2018-11-14 16:29 | IPNPDOC ---
Date Seen The patient was seen on 11/14/18. Progress Note SUBJECTIVE: Patient tells me that he feels woozy and has a headache otherwise he denies pain he denies diarrhea he denies fevers chills chest pressure shortness of breath. He denies palpitations OBJECTIVE PHYSICAL EXAMINATION: VITAL SIGNS: Please see below. GENERAL: Chronic facial deformities fatigued man sitting in a chair he appears tired but no acute distress HEENT: Chronic facial deformities moist mucous membranes no elevation and CVP CARDIOVASCULAR: S1-S2 tachycardic noticed heart sounds appreciated. RESPIRATORY: Clear to auscultation bilaterally some diminished breath sounds at the bases numerous tattoos. ABDOMINAL: Bowel sounds present abdomen soft and nontender EXTREMITIES: No clubbing cyanosis or edema NEUROLOGICAL: No focal deficits cranial nerves appear to be II through XII grossly intact LABORATORY DATA, IMAGING STUDIES, MICROBIOLOGY: Please see below. Echocardiogram: Sinus tachycardia without intraventricular conduction disturbance. M-mode and two-dimensional echocardiography was performed with pulsed, continuous wave, color flow and tissue Doppler studies. Normal left ventricular size, wall thickness. Normal left atrial size with Doppler evidence of an impairment of LV diastolic function with currently normal estimated mean left atrial pressure. Normal right heart chamber sizes and motion and estimated pulmonary arterial pressure. Normal IVC size and collapse against an elevated central venous pressure. Normal appearing and functioning valvular structures. Normal aortic root size. No apparent intracardiac mass or pericardial effusion. DVT prophylaxis ordered?: Heparin q8h ASSESSMENT AND PLAN: This is a 53-year-old male with septic shock secondary to salmonella and C. difficile with and possible ARDS. In the setting of stage IV head and neck cancer. PROBLEMS: 1. Septic shock: Hemodynamic stable at this time he has been off pressors appears to be doing quite well he is continued on by mouth vancomycin day 6 for C. difficile as well as levofloxacin for salmonella day 6 of 14. Report is still having some frequent bowel movements we'll continue to monitor for resolution of his diarrhea is about to do appear to be significantly improved from previous documentation reports. He is no complaints of pain in her mouth discomfort at this time. 2. Acute hypoxic respiratory failure secondary to ARDS: Pulmonary help is greatly appreciated the next. Today and is comfortable on nasal cannula which nursing staff are weaning. Continue to monitor him closely he is awake alert speaking in complete sentences doing quite well at this time appears to be resolving 3. Chronic steroid use: Want shots he was on stress dose steroids and is been weaned gradually continue to wean as tolerated. 4. Chronic pain: Given his hypotension and ARDS and respiratory failure I hesitate to titrate up on his pain regimen the patient denies any complaints of pain to me at this time hours family continues to problem nursing staff that he is in significant pain. Should he have persistent pain would consider pain management consult however at this time I see no evidence of pancreatitis he denies any pain 5. Hypokalemia: We'll have speech therapy evaluate him formally and spine with potassium at this time. She will tolerated 6. Abnormal liver function tests: He recently was in shock and as a next abated he has some mild elevation today possibly medication adverse effect will continue to monitor closely she did not resolve could consider further workup including hepatitis panel he has numerous tattoos 7. Anemia: Chronic stable Continue to monitor for now no indications for transfusion 8. Stage IV head and neck cancer: He'll require outpatient follow-up with medical oncology Dr. Holbrook did visit the patient during this hospitalization briefly 9. Acute kidney injury: The setting of septic shock resolved we will discontinue his Epna catheter today, voiding trial 10. Coronary artery disease: He did have an abnormal troponin earlier during her stay likely demand ischemia in the setting of his severe medical illness DISPOSITION: Pending clinical improvement, will transfer the medical surgical floor. VS, I&O, 24H, Fabrizio Vital Signs/I&O Vital Signs Date Time Temp Pulse Resp B/P (MAP) Pulse Ox O2 Delivery O2 Flow Rate FiO2 11/14/18 12:00 98.8 101 20 117/75 (89) 98 11/14/18 11:00 2.0 11/14/18 09:40 Nasal Cannula 11/14/18 09:00 30 I&O- Last 24 Hours up to 6 AM 11/14/18 06:00 Intake Total 1449.0 ml Output Total 1480 ml Balance -31.0 ml Laboratory Data 24H LABS Laboratory Tests 2 11/13/18 18:32: Bedside Glucose (Misc Panel) 97 11/14/18 00:49: Bedside Glucose (Misc Panel) 93 11/14/18 05:53: Anion Gap 4L, Glomerular Filtration Rate > 60.0, Blood Urea Nitrogen 12, Creatinine 0.74, Sodium Level 144, Potassium Level 3.1L, Chloride Level 108H, Carbon Dioxide Level 32, Calcium Level 8.2L, Phosphorus Level 2.1L, Aspartate Amino Transf (AST/SGOT) 72H, Alanine Aminotransferase (ALT/SGPT) 94H, Lactate Dehydrogenase 430H, Total Creatine Kinase 42, Alkaline Phosphatase 75, Total Hal irubin 0.3, Triglycerides Level 574H, Cholesterol Level 194, Total Protein 5.7L, Albumin 2.3L, Magnesium Level 1.8, Albumin/Globulin Ratio 0.68L 11/14/18 05:54: Bedside Glucose (Misc Panel) 82, Immature Granulocyte % (Auto) , Nucleated Red Blood Cells % (auto) 0.0, Neutrophils 77H, Band Neutrophils 2, Lymphocytes (Manual) 8L, Monocytes (Manual) 11H, Eosinophils (Manual) 1, Atypical Lymphocytes 1, Platelet Estimate NORMAL, Red Blood Cell Morphology NORMAL 11/14/18 09:06: Blood Gas Bicarbonate Standard 28.3H, Arterial Blood pH 7.479H, Arterial Blood Partial Pressure CO2 38.7, Arterial Blood Partial Pressure O2 65.1L, Arterial Blood Total CO2 29.3H, Arterial Blood HCO3 28.1H, Arterial Blood Base Excess 4.4H, Arterial Blood Oxygen Saturation 91.9L 11/14/18 11:39: Bedside Glucose (Misc Panel) 90 CBC/BMP Laboratory Tests 11/14/18 05:53 Calcium Level 8.2 L, Phosphorus Level 2.1 L, Aspartate Amino Transf (AST/SGOT) 72 H, Alanine Aminotransferase (ALT/SGPT) 94 H, Lactate Dehydrogenase 430 H, Total Creatine Kinase 42, Alkaline Phosphatase 75, Total Bilirubin 0.3, Triglycerides Level 574 H, Cholesterol Level 194, Total Protein 5.7 L, Albumin 2.3 L 11/14/18 05:54 Red Blood Count 3.74 L, Mean Corpuscular Volume 89.8, Mean Corpuscular Hemoglobin 27.0, Mean Corpuscular Hemoglobin Concent 30.1 L, Red Cell Distribution Width 17.6 H Microbiology Microbiology 11/09/18 Blood Culture - Final, Complete NO GROWTH AFTER 5 DAYS 11/09/18 Blood Culture - Final, Complete NO GROWTH AFTER 5 DAYS 11/08/18 Blood Culture - Final, Complete NO GROWTH AFTER 5 DAYS 11/08/18 Blood Culture - Final, Complete NO GROWTH AFTER 5 DAYS 11/08/18 Blood Culture - Final, Complete Salmonella Group 11/08/18 Gastrointestinal Tract Panel (PCR) - Final, Complete Salmonella Clostridium Difficile A/B Enteropathogenic E.coli 11/08/18 - Final, Complete Salmonella Species 11/11/18 MRSA Screen - Final, Complete 11/11/18 Gram Stain - Final, Complete 11/11/18 Sputum Culture - Final, Complete Yeast Like Organism 11/09/18 Urine Culture - Final, Complete LARS VIRAMONTES MD November 14, 2018 16:29
[2018-11-14] MEDS ORDERED: POTASSIUM CHLORIDE 10% LIQ 20 MEQ/15 ML UDC PO ONE (17:00)
[2018-11-14] MEDS: LevoFLOXacin IV 750 MG in APPROPRIATE DILUENT 1 EA IV SCH (18:58)
[2018-11-14] MEDS: PANTOPRAZOLE 40MG INJ (PROTONIX) (C9113) IV SCH (20:10)
[2018-11-15] MEDS ORDERED: diphenhydrAMINE 25 MG CAP PO ONE (02:30)
[2018-11-15] MEDS: HEPARIN SOD (PORCINE) 5000 UNITS/ML VIAL SC SCH ×3 (05:46→21:30)
[2018-11-15] MEDS: VANCOMYCIN ORAL SOL 250MG/5ML ORAL SYRINGE PO SCH ×3 (05:46→17:53)
[2018-11-15] MEDS: methylPREDNISolone INJ 40 MG/1 ML VIAL (J2920) IV SCH (05:46)
[2018-11-15] MEDS: METOCLOPRAMIDE INJ 10MG/2ML VIAL (J2765) IV SCH ×3 (05:47→17:53)
[2018-11-15] MEDS: SLF 3 ML SYR IV SCH ×3 (05:47→21:30)
[2018-11-15 06:00] VITALS: BP 125/75
[2018-11-15 06:29] LABS: HEMATOCRIT 37.3 % (42.0-52.0); HEMOGLOBIN 11.4 g/dl (13.5-17.5); MEAN CORPUSCULAR HGB CONC 30.6 g/dl (32.0-36.5); MEAN CORPUSCULAR VOLUME 88.2 fl (80.0-96.0); PLATELET COUNT, AUTOMATED 360 10^3/uL (150-450); RED BLOOD COUNT 4.23 10^6/uL (4.30-6.10); WHITE BLOOD COUNT 7.8 10^3/uL (4.0-10.0)
[2018-11-15 06:57] LABS: ALBUMIN 2.3 GM/DL (3.2-5.2); ALT/SGPT 100 U/L (12-78); BILIRUBIN,TOTAL 0.5 MG/DL (0.2-1.0); BLOOD UREA NITROGEN 12 MG/DL (7-18); CALCIUM LEVEL 8.3 MG/DL (8.5-10.1); CARBON DIOXIDE LEVEL 28 MEQ/L (21-32); CHLORIDE LEVEL 107 MEQ/L (98-107); CHOLESTEROL LEVEL 223 MG/DL (< 200); CPK CREATINE PHOSPHOKINASE 88 U/L (39-308); CREATININE FOR GFR 0.72 MG/DL (0.70-1.30); GLOMERULAR FILTRATION RATE > 60.0 (>56); GLUCOSE, FASTING 68 MG/DL (70-100); LDH LACTATE DEHYDROGENASE 389 U/L (87-241); MAGNESIUM LEVEL 1.6 MG/DL (1.8-2.4); PHOSPHORUS LEVEL 2.7 MG/DL (2.5-4.9); SODIUM LEVEL 143 MEQ/L (136-145); TOTAL PROTEIN 5.8 GM/DL (6.4-8.2); TRIGLYCERIDES LEVEL 354 MG/DL (<150)
[2018-11-15 07:02] LABS: ANISOCYTOSIS 1+; ATYPICAL LYMPH 1 % (0-5); EOSINOPHILS 2 % (0-5); LYMPHOCYTES 11 % (16-52); METAMYELOCYTES 1 % (0-0); MYELOCYTES 1 % (0-0); NEUTROPHILS 84 % (35-75); PLATELET ESTIMATE NORMAL (NORMAL)
[2018-11-15 07:04] LABS: GIANT PLATELETS 1+
[2018-11-15 07:05] LABS: TOXIC GRANULATION 1+
--- NOTE | 2018-11-15 07:18 | REP ---
Portable chest, 08:51 a.m., the patient is upright AP: Comparison is 11/14/2018. The increased radiodensity inferiorly in the right lung identified previously has improved, however, there is persisting opacity in the right costophrenic angle. There are persistent linear densities inferiorly in the right lung compatible with atelectasis. Left lung is clear. The endotracheal tube and nasogastric tube have been removed. There is a left IJ Ledujn-I-Trse with the tip in the superior vena cava, unchanged. Impression: Improving bilateral infiltrates. Persisting opacity in the right costophrenic angle. Electronically Signed by Capo Tobar MD 11/15/2018 07:09 A
[2018-11-15] MEDS: COMBIVENT RESPIMAT 100-20MCG INHALER 4GM INH SCH ×4 (07:43→20:00)
[2018-11-15] MEDS: MAG SULF 1GM/100ML (MAG RUN) 1 GM in APPROPRIATE DILUENT 1 EA IV SCH ×2 (07:53→09:24)
[2018-11-15] MEDS: NICOTINE 21MG/24HR 1 EA TRANSDERMAL TD SCH (08:00)
[2018-11-15] MEDS: SODIUM CHLORIDE 0.9% INJ 10 ML SYR IV SCH (08:00)
[2018-11-15] MEDS ORDERED: POTASSIUM CHLORIDE 10 MEQ SR TABLET PO ONE ×2 (09:00→15:00)
--- NOTE | 2018-11-15 10:39 | IPN ---
DATE: 11/15/2018 NOTE: Mr. Brandt is doing very well after being extubated yesterday. He is now on the floor and on room air. He is working with physical therapy (PT). He has walked to the bathroom and back and he has been out of bed to the chair. In fact, during the examination today, he wanted to sit up and dangle his legs so we could listen to his lungs. He has been seen by speech therapy, who recommended a pureed diet. He has been eating reasonably well. He had one loose stool last evening that was described as green in color. He denies any nausea or abdominal discomfort. He is not short of breath. No significant cough. OBJECTIVE: PHYSICAL EXAMINATION: GENERAL: Mr. Brandt is lying in bed and then sits on the side easily. No acute distress. No cough throughout the evaluation. VITAL SIGNS: Temperature is 97.4 with a maximum temperature (t-max) of 98.9, pulse 98, respiratory rate 18, blood pressure 125/75 with a mean arterial pressure of 92, SpO2 is 92% on room air. HEENT: Anicteric. Nares patent bilaterally with moist mucosa. Oropharynx is clear. No lesions. He can only partially open his mouth secondary to radiation changes. NECK: Supple. Without thyromegaly or masses. Trachea is midline. LYMPHATICS: Without cervical or supraclavicular lymphadenopathy. CHEST: Normal shape. LUNGS: Symmetric excursion. Good air entry. No wheeze, rhonchi or crackle on tidal excursion. Normal I:E. No accessory muscle usage or retractions. CARDIOVASCULAR: Regular rate and rhythm with normal S1, S2. No murmur, rub or gallop appreciated. ABDOMEN: Positive bowel sounds. Soft, nondistended, nontender. No hepatosplenomegaly or masses appreciated. EXTREMITIES: Warm and well perfused. Without clubbing or cyanosis or edema. LABORATORY DATA: Chemistries from this morning showed a sodium of 143, potassium 3.0, chloride 107, bicarbonate 28, anion gap 8, BUN 12, creatinine 0.7, glucose 68, calcium 8.3, phosphorous 2.7, magnesium 1.6, total bilirubin 0.5, AST 55 (down from 72), ALT 100 (up from 94). Alkaline phosphatase 79, LDH 389, CK 88, total protein 5.8, albumin 2.3. CBC showed a hemoglobin of 11.4, hematocrit 37.3, platelet count 360,000, white blood cell count 7800 with a differential of 84% neutrophils, 11% lymphocytes. I reviewed his chest x-ray, as well as report. That x-ray showed normal appearing cardiac silhouette and pulmonary vascular shadows. Normal mediastinal regions. No consolidated regions. The previously seen bilateral infiltrates were markedly improved. Minimal blunting of the right costophrenic angle. Normal inflation. IMPRESSION: 1. Acute hypoxemic respiratory failure secondary to acute respiratory distress syndrome (ARDS), doing well status post extubation 24 hours ago. 2. Septic shock secondary to Salmonella, resolved. 3. Colitis and ileus, resolved. 4. Stool PCR positive for Salmonella, Clostridium (C.) difficile and enteropathic Escherichia (E) coli. 5. Chronic prednisone usage, now on baseline level of prednisone 20 mg twice a day. 6. Squamous cell head and neck cancer, stage IV. He has received XRT times two, cisplatin, Erbitux. He is followed by oncology. 7. ETOH and tobacco usage, ongoing at the time of admission. 8. Infectious disease, on Levaquin for Salmonella treatment, day 7 of an appropriate antibiotic for that organism. He is on oral vancomycin, day 7 out of 10 to 14 day regimen. 9. Deep vein thrombosis (DVT) prophylaxis with sequential compression device (SCD), TEDs, and subcutaneous heparin. 10. Nutrition. Eating pureed diet. 11. Stress ulcer prophylaxis. On proton pump inhibitor. RECOMMENDATIONS: 1. As noted above, he is now on the prednisone level that he was on at the time of admission, which is 20 mg by mouth twice a day. I do not know what the long range plan was in regard to this medication. 2. He has been evaluated by speech therapy and is on appropriate diet. 3. He is working with physical therapy (PT) and occupational therapy (OT). 4. I spoke at length with Mr. Brandt regarding the importance of completing the healthcare proxy form and Medical Orders for Life Sustaining Treatment (MOLST) form. I did discuss with him who would be his healthcare proxy at the present time, which would be his eldest son, who has not been closely involved in his care. I also encouraged him, however, to complete the form with his current family members not present so that he can make a decision without feeling pressure. I also encouraged him to complete the MOLST form bearing in mind that he has stage IV cancer. 5. Dr. Collazo will take over as attending and the critical care service will sign off as he does not have any further needs. In regard to his acute respiratory distress syndrome (ARDS), this was from Salmonella sepsis and is not a pulmonary origin. His x-ray is almost clear. He DOES NOT require any pulmonary followup. This was also discussed with Dr. Collazo.
[2018-11-15] MEDS: ACETAMINOPHEN TAB 650MG DOSE (2X325MG) PO PRN ×2 (12:23→18:54)
[2018-11-15 14:30] VITALS: BP 112/76
--- NOTE | 2018-11-15 14:43 | IPNPDOC ---
Date Seen The patient was seen on 11/15/18. Progress Note SUBJECTIVE: Patient tells me that he feels much better today. He does complain that his pain is not adequately controlled he also complains of difficulty sleeping. He denies diarrhea and tells me he had 3 bowel movements in the last 24 hours, he denies fevers chills chest pressure shortness of breath. He denies palpitations OBJECTIVE PHYSICAL EXAMINATION: VITAL SIGNS: Please see below. GENERAL: Chronic facial deformities, man sitting in a chair no acute distress, accompanied by his sister HEENT: Chronic facial deformities moist mucous membranes no elevation and CVP CARDIOVASCULAR: S1-S2 tachycardic noticed heart sounds appreciated. RESPIRATORY: Clear to auscultation bilaterally some diminished breath sounds at the bases numerous tattoos. ABDOMINAL: Bowel sounds present abdomen soft and nontender EXTREMITIES: No clubbing cyanosis or edema. NEUROLOGICAL: No focal deficits cranial nerves appear to be II through XII grossly intact LABORATORY DATA, IMAGING STUDIES, MICROBIOLOGY: Please see below. Echocardiogram: Sinus tachycardia without intraventricular conduction disturbance. M-mode and two-dimensional echocardiography was performed with pulsed, continuous wave, color flow and tissue Doppler studies. Normal left ventricular size, wall thickness. Normal left atrial size with Doppler evidence of an impairment of LV diastolic function with currently normal estimated mean left atrial pressure. Normal right heart chamber sizes and motion and estimated pulmonary arterial pressure. Normal IVC size and collapse against an elevated central venous pressure. Normal appearing and functioning valvular structures. Normal aortic root size. No apparent intracardiac mass or pericardial effusion. DVT prophylaxis ordered?: Heparin q8h ASSESSMENT AND PLAN: This is a 53-year-old male with septic shock secondary to salmonella and C. difficile with and possible ARDS. In the setting of stage IV head and neck cancer. PROBLEMS: 1. Septic shock: Resolved. Hemodynamically stable at this time appears to be doing quite well he is continued on by mouth vancomycin day 7 for C. difficile as well as levofloxacin for salmonella day 7 of 14 for gram negative susi bacteremia. Diarrhea is resolving he is tolerating a diet I'll start him on Bacid. 2. Acute hypoxic respiratory failure secondary to ARDS: Pulmonary help is greatly appreciated. Resolved requires no further pulmonary follow-up he is comfortable on room air. 3. Chronic steroid use: He is been weaned back to his baseline steroids will defer to oncology on the outpatient setting regarding future use 4. Chronic pain: I'm presuming some of his home pain medication cautiously at this time we'll monitor him closely should this fail to improve / control his symptoms we'll consider pain management consult tomorrow 5. Hypokalemia hypomagnesemia: Possibly secondary to diarrhea, it does appear to be resolving I suspect is likewise will improve once his diarrhea resolves. We'll replete by mouth 6. Abnormal liver function tests: Relatively stable and mild for now we'll continue to monitor 7. Anemia: Chronic stable Continue to monitor for now no indications for transfusion 8. Stage IV head and neck cancer: He'll require outpatient follow-up with medical oncology Dr. Tang did visit the patient during this hospitalization briefly 9. Acute kidney injury: Resolved voiding well reflux back to baseline 10. Coronary artery disease: He did have an abnormal troponin earlier during his stay likely demand ischemia in the setting of his severe medical illness DISPOSITION: Pending PT and OT stabilization of electrolytes possibly over the next 24-48 hours. Agree with pulmonary the patient does need to advanced directives and health care proxy is discussed at length with and his family who was bedside. VS, I&O, 24H, Fishbone Vital Signs/I&O Vital Signs Date Time Temp Pulse Resp B/P (MAP) Pulse Ox O2 Delivery O2 Flow Rate FiO2 11/15/18 06:00 97.4 98 18 125/75 (92) 92 11/14/18 11:00 2.0 11/14/18 09:40 Nasal Cannula 11/14/18 09:00 30 I&O- Last 24 Hours up to 6 AM 11/15/18 06:00 Intake Total 1081 ml Output Total 1225 ml Balance -144 ml Laboratory Data 24H LABS Laboratory Tests 2 11/15/18 05:57: Immature Granulocyte % (Auto) , Nucleated Red Blood Cells % (auto) 0.0, Neutrophils 84H, Lymphocytes (Manual) 11L, Eosinophils (Manual) 2, Metamyelocytes 1H, Myelocytes 1H, Atypical Lymphocytes 1, Toxic Granulation 1+, Platelet Estimate NORMAL, Giant Platelets 1+, Anisocytosis 1+, Anion Gap 8, Emeradl merular Filtration Rate > 60.0, Blood Urea Nitrogen 12, Creatinine 0.72, Sodium Level 143, Potassium Level 3.0L, Chloride Level 107, Carbon Dioxide Level 28, Calcium Level 8.3L, Phosphorus Level 2.7#, Aspartate Amino Transf (AST/SGOT) 55H, Alanine Aminotransferase (ALT/SGPT) 100H, Lactate Dehydrogenase 389H, Total Creatine Kinase 88#, Alkaline Phosphatase 79, Total Bilirubin 0.5#, Triglycerides Level 354H, Cholesterol Level 223H, Total Protein 5.8L, Albumin 2.3L, Magnesium Level 1.6L, Albumin/Globulin Ratio 0.66L CBC/BMP Laboratory Tests 11/15/18 05:57 Red Blood Count 4.23 L, Mean Corpuscular Volume 88.2, Mean Corpuscular Hemoglobin 27.0, Mean Corpuscular Hemoglobin Concent 30.6 L, Red Cell Distribution Width 17.6 H, Calcium Level 8.3 L, Phosphorus Level 2.7 #, Aspart ate Amino Transf (AST/SGOT) 55 H, Alanine Aminotransferase (ALT/SGPT) 100 H, Lactate Dehydrogenase 389 H, Total Creatine Kinase 88 #, Alkaline Phosphatase 79, Total Bilirubin 0.5 #, Triglycerides Level 354 H, Cholesterol Level 223 H, Total Protein 5.8 L, Albumin 2.3 L Microbiology Microbiology 11/09/18 Blood Culture - Final, Complete NO GROWTH AFTER 5 DAYS 11/09/18 Blood Culture - Final, Complete NO GROWTH AFTER 5 DAYS 11/08/18 Blood Culture - Final, Complete NO GROWTH AFTER 5 DAYS 11/08/18 Blood Culture - Final, Complete NO GROWTH AFTER 5 DAYS 11/08/18 Blood Culture - Final, Complete Salmonella Group 11/08/18 Gastrointestinal Tract Panel (PCR) - Final, Complete Salmonella Clostridium Difficile A/B Enteropathogenic E.coli 11/08/18 - Final, Complete Salmonella Species 11/11/18 MRSA Screen - Final, Complete 11/11/18 Gram Stain - Final, Complete 11/11/18 Sputum Culture - Final, Complete Yeast Like Organism 11/09/18 Urine Culture - Final, Complete LARS VIRAMONTES MD November 15, 2018 14:43
[2018-11-15] MEDS: GABAPENTIN 100 MG CAP PO SCH ×2 (15:02→21:30)
[2018-11-15] MEDS: LACTOBACILLUS ACIDOPHILUS CAP (BACID) PO SCH (17:53)
[2018-11-15] MEDS: LevoFLOXacin IV 750 MG in APPROPRIATE DILUENT 1 EA IV SCH (17:53)
[2018-11-15] MEDS: predniSONE 20 MG TAB PO SCH (21:30)
[2018-11-15] MEDS: PANTOPRAZOLE 40MG INJ (PROTONIX) (C9113) IV SCH (21:30)
[2018-11-15 22:00] VITALS: BP 103/65
[2018-11-16] MEDS: METOCLOPRAMIDE INJ 10MG/2ML VIAL (J2765) IV SCH ×3 (00:21→12:35)
[2018-11-16] MEDS: VANCOMYCIN ORAL SOL 250MG/5ML ORAL SYRINGE PO SCH ×3 (00:22→12:35)
[2018-11-16] MEDS: MORPHINE 30 MG TAB **MSIR PO PRN ×2 (04:59→14:24)
[2018-11-16] MEDS ORDERED: PILL CRUSHER/CUTTER 1 EACH XX PRN (05:15)
[2018-11-16] MEDS: HEPARIN SOD (PORCINE) 5000 UNITS/ML VIAL SC SCH ×2 (05:28→14:24)
[2018-11-16] MEDS: SLF 3 ML SYR IV SCH ×2 (05:29→14:24)
[2018-11-16] MEDS: GABAPENTIN 100 MG CAP PO SCH ×2 (05:29→14:24)
[2018-11-16 06:00] VITALS: BP 107/77
[2018-11-16] MEDS: COMBIVENT RESPIMAT 100-20MCG INHALER 4GM INH SCH ×2 (07:13→11:30)
[2018-11-16] MEDS: NICOTINE 21MG/24HR 1 EA TRANSDERMAL TD SCH (08:29)
[2018-11-16] MEDS: SODIUM CHLORIDE 0.9% INJ 10 ML SYR IV SCH (08:29)
[2018-11-16] MEDS: predniSONE 20 MG TAB PO SCH (08:29)
[2018-11-16] MEDS: LACTOBACILLUS ACIDOPHILUS CAP (BACID) PO SCH (08:29)
[2018-11-16] MEDS: ACETAMINOPHEN TAB 650MG DOSE (2X325MG) PO PRN (08:33)
[2018-11-16 08:51] LABS: HEMATOCRIT 36.5 % (42.0-52.0); MEAN CORPUSCULAR HEMOGLOBIN 26.7 pg (27.0-33.0); MEAN CORPUSCULAR HGB CONC 30.1 g/dl (32.0-36.5); MEAN CORPUSCULAR VOLUME 88.6 fl (80.0-96.0); PLATELET COUNT, AUTOMATED 453 10^3/uL (150-450); RED BLOOD COUNT 4.12 10^6/uL (4.30-6.10); WHITE BLOOD COUNT 9.7 10^3/uL (4.0-10.0)
[2018-11-16 09:17] LABS: LYMPHOCYTES 13 % (16-52); MONOCYTES 5 % (0-8); NEUTROPHILS 79 % (35-75)
[2018-11-16 09:18] LABS: PLATELET ESTIMATE NORMAL (NORMAL)
[2018-11-16 09:19] LABS: ANISOCYTOSIS 1+; HYPOCHROMASIA 1+; TOXIC GRANULATION 1+
[2018-11-16 09:26] LABS: ALBUMIN 2.3 GM/DL (3.2-5.2); ALT/SGPT 69 U/L (12-78); BILIRUBIN,TOTAL 0.3 MG/DL (0.2-1.0); BLOOD UREA NITROGEN 14 MG/DL (7-18); CALCIUM LEVEL 8.5 MG/DL (8.5-10.1); CARBON DIOXIDE LEVEL 28 MEQ/L (21-32); CHLORIDE LEVEL 105 MEQ/L (98-107); CHOLESTEROL LEVEL 241 MG/DL (< 200); CPK CREATINE PHOSPHOKINASE 38 U/L (39-308); CREATININE FOR GFR 1.07 MG/DL (0.70-1.30); GLOMERULAR FILTRATION RATE > 60.0 (>56); GLUCOSE, FASTING 154 MG/DL (70-100); LDH LACTATE DEHYDROGENASE 389 U/L (87-241); MAGNESIUM LEVEL 2.4 MG/DL (1.8-2.4); POTASSIUM SERUM 3.8 MEQ/L (3.5-5.1); SODIUM LEVEL 139 MEQ/L (136-145); TOTAL PROTEIN 6.2 GM/DL (6.4-8.2); TRIGLYCERIDES LEVEL 408 MG/DL (<150)
--- NOTE | 2018-11-16 10:18 | NUR ---
Recommend upgrade to level 2 mechanically altered (NDD) solids and continue thin liquids with use of compensatory tongue sweep, finger sweep, and liquid wash to clear right buccal cavity of residue. Pt w/ improved cognition and alertness this AM. Tolerated level 3 solids w/o overt s/sx aspiration. Pt reports that he has never had any difficulty swallowing. He states that he consumes a regular diet at home but avoids dry, tough solids d/t edentulous state. Pt demonstrates anterior spillage and mild pocketing of right buccal cavity. He reports this is is baseline d/t chronic facial swelling, weakness, and decreased sensation w/ hx of oropharyngeal cancer. Addendum: 11/16/[address] [facility] Amended: Links added.
[2018-11-16] MEDS ORDERED: GABA-1171 PO (10:38)
[2018-11-16] MEDS ORDERED: FIRV50SO PO (10:38)
[2018-11-16] MEDS ORDERED: LEVO750T13 PO (10:38)
[2018-11-16] MEDS ORDERED: NICO21PAT TD (11:38)
--- NOTE | 2018-11-16 13:58 | DSES ---
DATE OF ADMISSION: 11/08/2018 DATE OF DISCHARGE: DISCHARGE DIAGNOSIS: Refractory septic shock. SECONDARY DIAGNOSES: Acute hypoxic respiratory failure secondary to acute respiratory distress syndrome (ARDS). Adrenal insufficiency. Stage IV head and neck cancer. Hypokalemia. Hypomagnesemia. Acute on chronic pain. Acute kidney injury. Abnormal troponin. Coronary artery disease. HOSPITAL COURSE: The patient is a 53-year-old man who was admitted to the hospitalist service on 11/08/2018. At that time, he was found to be in septic shock and eventually he was admitted to the intensive care unit on the intense of his service requiring multiple pressors, stress dose steroids, and was intubated for ARDS. It was felt to be secondary to Salmonella sepsis. He was also positive for Clostridium (C) difficile as well. He gradually improved with significant measures to the point where he was weaned off his pressors and subsequently extubated. He was transferred to the medical floor where he worked with physical therapy. He was able to tolerate a diet and had resolution of his diarrheal symptoms. SUBJECTIVE: This morning the patient tells me that he had one firm bowel movement overnight. He tells me that he has this chronic pain related to his head and neck cancer, which is significant, and he has difficulty sleeping while in the hospital. Otherwise, he has no abdominal pain, nausea or vomiting. He denies fevers, chills, chest pressure, shortness of breath. He has been up ambulating around his room this morning. OBJECTIVE: VITAL SIGNS: Temperature 97, pulse 64, respiratory rate 20, blood pressure 107/77, oxygen saturation 93% on room air. GENERAL: He has chronic facial deformity. He is sitting in a chair eating breakfast. He speaks in complete in sentences, in no acute distress, accompanied by one of his sisters. HEENT: Chronic facial deformity. He has moist mucous membranes. No elevation in central venous pressure (CVP). CARDIOVASCULAR: S1, S2 regular. RESPIRATORY EXAM: Fairly clear. ABDOMINAL EXAM: Benign. EXTREMITIES: No clubbing, cyanosis or edema. LABORATORY STUDIES: WBC 9.7, hemoglobin 11.0, platelet count 453. Chemistry panel: Sodium 139, potassium 3.8, chloride 105, bicarbonate 28, BUN 14, creatinine 1.0. Magnesium 2.4. During the stay, his troponin peak was 0.39 and then trended downward. MICROBIOLOGY: Stool GI PCR panel positive for Salmonella, C diff, and enteropathogenic Escherichia (E) coli. The final was Salmonella species. He did have Salmonella in 1 of 2 bottles positive blood cultures from 11/08/2018. Repeat bottles from 11/08/2018 and 11/09/2018 were negative. IMAGING: The patient had numerous chest x-rays while intubated. ASSESSMENT AND PLAN: This a 53-year-old man with known stage IV head and neck cancer who was admitted for refractory septic shock and acute hypoxic respiratory failure secondary to acute respiratory distress syndrome. PROBLEMS: 1. Refractory septic shock, resolved, hemodynamically stable. May resume his home medications. Today is day #8 of oral vancomycin for C diff colitis infection. His diarrhea is resolving. However, he still has seven additional days of oral levofloxacin to treat for his Salmonella and gram-negative susi bacteremia to complete a 14-day course. I will provide him with an additional 10 days of oral vancomycin to overlap and buffer his fluoroquinolone use on the outpatient setting. His diarrhea has resolved. 2. Acute hypoxic respiratory failure secondary to ARDS, resolved. Pulmonary feel no further followup is required. He is comfortable on room air. 3. Stage IV head and neck cancer. He is on chronic steroids. He was on stress dose steroids while hospitalized and hypotensive in refractory shock. He has been weaned back to baseline steroid use. Further titration adjustments are made by oncology in the outpatient setting. Further chemotherapy treatments as per oncology. 4. Chronic pain. I am discharging him resuming his home pain medications other than his gabapentin, which I am not titrating back up to such a high level. Recommend slow gradual up titration of medication as needed. Could consider palliative care versus pain meds in consult. 5. Hypokalemia and hypomagnesemia secondary to diarrhea, resolved with resolution of his diarrhea supplementation. 6. Abnormal liver function tests, resolved. Possibly medication adverse effect while hospitalized. Recommend outpatient monitoring. 7. Acute kidney injury secondary to septic shock presentation, resolved. Renal function is back to his baseline. He is voiding. 8. Coronary artery disease. He may have some degree of this. He does have an abnormal troponin during his stay likely type 2 demand ischemia. Recommend outpatient ischemic evaluation. DISPOSITION: He has been cleared by physical therapy and occupational therapy. He is medically stable for discharge home. He is to followup with us primary care physician within 7 days, followup with oncology within 1 week, followup with cardiology within 1 month. His activity is as tolerated. His diet is a level 2 mechanical soft. He is to return to the emergency room (ER) if symptoms worsen. Medications at the time of discharge: - gabapentin 200 mg every 8 hours - levofloxacin 750 mg 1 tablet daily for 7 days to complete a 14-day course - vancomycin 125 mg every 6 hours for 10 additional days - acetaminophen 500 mg every 6 hours as needed for pain - vitamin D2 50,000 units weekly on Sundays - fentanyl patch 37 mcg every 3 days - ferrous sulfate 325 mg daily - methylphenidate 5 mg daily - mirtazapine 30 mg nightly - morphine sulfate 15 mg twice a day as needed for pain - pantoprazole 40 mg twice a day - prednisone 20 mg twice a day - Senokot 8.6 mg twice a day - venlafaxine 150 mg daily Greater than 50 minutes spent organizing safe disposition, answering all questions to satisfaction with the patient and his family. I have recommended previously and as well as pulmonary that he should have a Medical Orders for Life Sustaining Treatment (MOLST) form completed as well as a healthcare proxy completed as well. He was reluctant to making decisions and complete these while hospitalized. I feel this conversation should be continued by oncology in the outpatient setting given the severity of his hospitalization and his stage IV carcinoma diagnosis. ELIZABETH
[2018-11-16 14:00] VITALS: BP 109/74
[2018-11-17] MEDS ORDERED: FENTANYL REMOVAL DOCUMENTATION MISC XX SCH (09:00)
== END 2018-11-16 15:10 | disposition home or self-care (01) | DRG 871 ==
LOC: M ED 17:12 → M ED INP 19:56 → M ICU 22:16 → M MSPAV 11-14 16:09
PROVIDERS: ADMIT Internal Medicine; ATTEND Internal Medicine
PROC: 02H633Z Insertion of Infusion Device into Right Atrium, Percutaneous Approach (ICD-10-PCS; 2018-11-09)
PROC: 5A1945Z Respiratory Ventilation, 24-96 Consecutive Hours (ICD-10-PCS; principal; 2018-11-10)
DX: A02.1 Salmonella sepsis (principal); R65.21 Severe sepsis with septic shock; G93.41 Metabolic encephalopathy; J96.01 Acute respiratory failure with hypoxia; E87.2 Acidosis; I24.8 Other forms of acute ischemic heart disease; A04.72 Enterocolitis due to Clostridium difficile, not specified as recurrent; A04.0 Enteropathogenic Escherichia coli infection; E27.40 Unspecified adrenocortical insufficiency; C79.51 Secondary malignant neoplasm of bone; K56.7 Ileus, unspecified; N17.9 Acute kidney failure, unspecified; C10.9 Malignant neoplasm of oropharynx, unspecified; I89.0 Lymphedema, not elsewhere classified; I25.10 Atherosclerotic heart disease of native coronary artery without angina pectoris; E83.42 Hypomagnesemia; E87.6 Hypokalemia; Z79.899 Other long term (current) drug therapy; Z79.52 Long term (current) use of systemic steroids; K21.9 Gastro-esophageal reflux disease without esophagitis; G89.3 Neoplasm related pain (acute) (chronic); F17.200 Nicotine dependence, unspecified, uncomplicated; F10.10 Alcohol abuse, uncomplicated

== ENCOUNTER → 2019-01-03 | Outpatient (CLI) | payer MEDICARE ==
[~2019-01-03] MED LIST changes: +ALTEPLASE 2 MG/2 ML VIAL (J2997 PER 1MG) As Ordered ONE; +CBD OIL; +FENT12DI8 TD; +FERR325T3 PO; +FIRV50SO GT; +FIRV50SO PO; +FURO20TA2 PO; +GABA-1171 PO; +ISOVUE-300 61% 50ML VIAL (Q9967) As Ordered ONE; +JEVILIQ7 GT; +LEVO750T13 PO; +LIDOCAINE 1% MDV 20ML VIAL As Ordered ONE; +METH5TAB76 PO; +MIRT1TAB15 PO; +MORP15TA2 PO; +NEUR800T PO; +NICO21PAT TD; +VITA500045 PO
--- NOTE | 2019-01-03 12:17 | HPEPDOC ---
General Date of Admission 01/03/19 Date of Service: Jan 03, 2019 Chief Complaint The patient is a 53-year-old male admitted with a reason for visit of Non Functioning Port. History of Present Illness port won't work Home Medications Scheduled Ergocalciferol (Vitamin D2) (Vitamin D2) 50,000 Unit Capsule, 50,000 UNIT PO QWEEK, (Reported) SUNDAYS. PATIENT RAN OUT OF MED SO HASN'T TAKEN IN A WHILE Fentanyl (Fentanyl) 25 Mcg Patch.td72, 25 MCG TD Q3D, (Reported) Ferrous Sulfate (Ferrous Sulfate) 325 Mg Tablet.dr, 325 MG PO DAILY, (Reported) TAKES AT 1200 Mirtazapine (Remeron) 30 Mg Tab, 15 MG PO BID Pantoprazole Sodium (Pantoprazole Sodium) 40 Mg Tablet.dr, 40 MG PO BID, (Reported) Venlafaxine HCl (Venlafaxine HCl ER) 150 Mg Cap, 150 MG PO DAILY Scheduled PRN Acetaminophen (Acetaminophen) 500 Mg Tab, 500 MG PO Q6H PRN for PAIN, (Reported) Morphine Sulfate (Morphine Sulfate ER) 30 Mg Tablet.er, 1 TAB PO BIDP PRN for pain Miscellaneous Medications Cannabidiol (Cbd Oil) Btl, (Reported) Allergies Coded Allergies: No Known Allergies (Unverified , 12/30/18) A-FIB/CHADSVASC A-FIB History Current/History of A-Fib/PAF?: No Physical Examination Other physical findings normal heart rate. normal breathing at rest ASA II Mallampati 4 No sedation Vital Signs BALDEV RIZVI MD Jan 03, 2019 12:17
--- NOTE | 2019-01-03 15:21 | ROOPDOC ---
[facility] Report Of Operation Report of Operation DATE OF PROCEDURE: 01/03/19 PREPROCEDURE DIAGNOSES: Non functioning port POSTPROCEDURE DIAGNOSES: [port working]. PROCEDURE: venogram. TPA lysis SURGEON: [Misa]MD ADMISSIONS MANAGER: ANESTHESIA: none ESTIMATED BLOOD LOSS: Approximately [1] mL. COMPLICATIONS: [none]. REMARKS: [port aspirates and flushes after TPA]. PROCEDURE NOTE: [see full report under imaging tab]. DESCRIPTION OF PROCEDURE: [2 mg infused through port. port now aspirates and flushes. ]. BALDEV QUARLES MD Jan 03, 2019 15:21
--- NOTE | 2019-01-04 07:39 | REP ---
IR venogram TPA Lysis Indication: Malfunctioning port. Port flushes but won't aspirate. Head and neck cancer Procedure: The left chest wall port was accessed in a sterile manner. Aspiration failed. A venogram was performed which demonstrates the port is patent and there is central flow. There is early fibrin sheath. 2 mg of TPA were infused into the port and left to dwell for 1 hour. Post t-PA administration, port aspirates and flushes appropriately. The port was locked with heparin. Patient tolerated the procedure well Complications: None Blood Loss < 5 ml Impression: 1. Venogram demonstrates port is patent 2. Early fibrin sheath. Successful TPA lysis. Patient to follow up in IR as needed. Thank you for this referral Electronically Signed by Tania Bynum MD 01/03/2019 04:11 P
== END | disposition home or self-care (01) ==
LOC: M IRPRO 11:32
PROVIDERS: ATTEND Internal Medicine Hematology & Oncology
DX: T82.898A Other specified complication of vascular prosthetic devices, implants and grafts, initial encounter (principal)
CPT/HCPCS: 36593; J2997; Q9967

== ENCOUNTER 2019-01-04 11:50 | Day surgery (SDC) | payer MEDICARE ==
[~2019-01-04] VITALS: Ht 175.3 cm; Wt 65.2 kg
[~2019-01-04 11:50] MED LIST changes: -ALTEPLASE 2 MG/2 ML VIAL (J2997 PER 1MG) As Ordered ONE; +AMPICILLIN SOD/SULBACTAM SOD 3 GM in D5W MINI-BAG PLUS 100 ML IV ONE; -FIRV50SO GT; -ISOVUE-300 61% 50ML VIAL (Q9967) As Ordered ONE; -JEVILIQ7 GT; -LIDOCAINE 1% MDV 20ML VIAL As Ordered ONE; +NS 1,000 ML IV ONE
[2019-01-04] MEDS ORDERED: AMPICILLIN SOD/SULBACTAM SOD 3 GM in D5W MINI-BAG PLUS 100 ML IV ONE (14:30)
[2019-01-04] MEDS ORDERED: MORPHINE 30 MG SA TAB PO PRN (17:30)
[2019-01-04] MEDS ORDERED: ACETAMINOPHEN 500 MG TAB PO PRN (17:30)
[2019-01-04] MEDS ORDERED: FENTANYL REMOVAL DOCUMENTATION MISC XX SCH (17:30)
[2019-01-04 18:57] VITALS: BP 100/64
[2019-01-04] MEDS: PANTOPRAZOLE 40MG TAB (PROTONIX) PO SCH (21:00)
[2019-01-04] MEDS: MIRTAZAPINE 15 MG TAB PO SCH (21:00)
[2019-01-04] MEDS ORDERED: fentaNYL 25 MCG/HR PATCH TD SCH (21:00)
[2019-01-04 22:00] VITALS: BP 100/62
[2019-01-05 06:00] VITALS: BP 102/66
[2019-01-05] MEDS ORDERED: LIDOCAINE 2% INJ 100 MG/5 ML SDV (FOR ANES.) As Ordered ONE (07:41)
[2019-01-05] MEDS ORDERED: PROPOFOL 200 MG/20 ML VIAL As Ordered ONE (07:41)
[2019-01-05] MEDS ORDERED: fentaNYL 100 MCG/2 ML INJECTION (J3010) As Ordered ONE (09:24)
[2019-01-05] MEDS ORDERED: MIDAZOLAM INJ 2 MG/2 ML VIAL (J2250) As Ordered ONE (09:24)
[2019-01-05] MEDS ORDERED: HYDROCORTISONE 100 MG/2 ML VIAL (J1720) As Ordered ONE (09:25)
[2019-01-05] MEDS ORDERED: UNASYN 1.5 GM VIAL As Ordered ONE (09:51)
[2019-01-05] MEDS ORDERED: PHENYLephrine HCL 500 MCG/5 ML (100MCG/ML) SYRINGE (J2370) As Ordered ONE (10:29)
[2019-01-05 12:00] VITALS: BP 80/60
[2019-01-05] MEDS ORDERED: FERROUS SULFATE 325MG TAB PO SCH (12:00)
[2019-01-05] MEDS: PANTOPRAZOLE 40MG TAB (PROTONIX) PO SCH ×2 (13:20→21:00)
[2019-01-05] MEDS: VENLAFAXINE **XR** 75MG CAPSULE PO SCH (13:20)
[2019-01-05] MEDS: MIRTAZAPINE 15 MG TAB PO SCH ×2 (13:20→21:00)
[2019-01-05 13:38] LABS: ALBUMIN 1.8 GM/DL (3.2-5.2); ALT/SGPT 12 U/L (12-78); BILIRUBIN,TOTAL 0.6 MG/DL (0.2-1.0); BLOOD UREA NITROGEN 13 MG/DL (7-18); CALCIUM LEVEL 7.9 MG/DL (8.5-10.1); CARBON DIOXIDE LEVEL 28 MEQ/L (21-32); CHLORIDE LEVEL 97 MEQ/L (98-107); CREATININE FOR GFR 0.78 MG/DL (0.70-1.30); GLOMERULAR FILTRATION RATE > 60.0 (>56); GLUCOSE, FASTING 88 MG/DL (70-100); MAGNESIUM LEVEL 1.7 MG/DL (1.8-2.4); POTASSIUM SERUM 3.3 MEQ/L (3.5-5.1); SODIUM LEVEL 134 MEQ/L (136-145); TOTAL PROTEIN 4.9 GM/DL (6.4-8.2)
[2019-01-05 16:00] VITALS: BP 92/62
[2019-01-05] MEDS ORDERED: JEVILIQ7 GT (16:38)
[2019-01-05 22:00] VITALS: BP 92/63
[2019-01-06 02:00] VITALS: BP 93/64
[2019-01-06 03:33] LABS: CLOSTRIDIUM DIFFICILE PCR POSITIVE (NEGATIVE)
[2019-01-06 06:00] VITALS: BP 94/56
[2019-01-06] MEDS: PANTOPRAZOLE 40MG TAB (PROTONIX) PO SCH (08:41)
[2019-01-06] MEDS: VENLAFAXINE **XR** 75MG CAPSULE PO SCH (08:41)
[2019-01-06] MEDS: MIRTAZAPINE 15 MG TAB PO SCH (08:41)
[2019-01-06 10:00] VITALS: BP 99/65
[2019-01-06] MEDS ORDERED: FIRV50SO GT (12:39)
--- NOTE | 2019-01-06 17:19 | IPN ---
DATE: 01/06/2019 HISTORY: The patient was brought in on January 04, 2019, by Dr. Coley for a percutaneous endoscopic gastrostomy (PEG) tube but kept getting bumped on the schedule by urgent cases. Therefore, he underwent placement of his PEG tube yesterday by me. He was to go home late last night and orders were in fact entered for his discharge, but for some reason, he was not discharged. The PEG tube went fine. He did have some issues with fairly watery diarrhea and a Clostridium difficile (C diff) assay was sent last evening, which has returned as positive for C diff toxin. He is not complaining of any significant pain from the G-tube today. Vital signs: Show that he has been afebrile over the past 24 hours. His pulse is running between 90 and 112. Blood pressure is in the mid to upper 90s and stable. Intake and output shows yesterday that there is only 200 mL recorded in by IV and 600 mL of urine recorded out. He has been taking some liquids today. PHYSICAL EXAMINATION: The patient appears chronically ill and quite frail. The abdomen is mildly distended but soft and without any undue tenderness. The G-tube site is without significant tenderness. LABORATORY STUDIES: The patient had some electrolytes yesterday that showed a sodium of 134, potassium 3.3, chloride 97, CO2 of 28, BUN of 13, creatinine 0.8 and a glucose of 88. Magnesium was 1.7. Total protein is 4.9 with an albumin of 1.8. His stool testing showed that his stool was positive for Clostridium difficile toxin. He was negative for Clostridium difficile [id number]. IMPRESSION: The patient has done well from placement of his G-tube and has started with tube feedings today. He tested positive for C diff and has previously had an infection in November that was treated. PLAN: The patient will be discharged home today. A prescription for vancomycin 125 mg per G-tube four times daily was sent to his pharmacy. He was provided a handwritten prescription for Jevity 1.5 analy, 4 cans per G-tube per day. He has connected with a home care agency that can assist with his tube feedings as necessary. His sister will be assisting as well. They can follow up in the surgery office on an as-needed basis. The sister will be checking with Dr. Tang of medical oncology come Dre to address the issue of whether to continue with his current plan for therapy. BENJID
--- NOTE | 2019-01-09 08:17 | RO ---
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 PROCEDURE PERFORMED: Esophagogastroduodenoscopy with placement of 20-German percutaneous endoscopic gastrostomy. SURGEON: Dr. Duarte PUBLIC HEALTH SANITARIAN: Dr. Espinoza. Dr. Espinoza perform the endoscopic portion of the procedure while I placed the tube and perform the insertion at the abdominal wall. ANESTHESIA: Monitored anesthesia care. INDICATIONS FOR PROCEDURE: Patient is a 53-year-old man with advanced head and neck cancer. He has been treated for a number of years both with surgery, chemotherapy and radiation. He is unable to take any significant oral intake currently because of pain. He is now for placement of a PEG tube for nutritional support. OPERATIVE PROCEDURE: The patient was placed supine stretcher. I inserted the endoscope into the oropharynx and advance this. He did have some somewhat dried secretions in the back of the throat which had been navigated. The scope was advanced down the esophagus. There were no esophageal abnormalities identified. The stomach was inspected. There was a small scar on the anterior gastric wall from his previous gastrostomy tube from some time ago. The scope was advanced through the pylorus and down to the second portion of the duodenum. The scope was withdrawn with some insufflation of a air. Duodenum appeared normal. The stomach showed no acute abnormalities. I then turned the gastroscope over to Dr. Espinoza who manipulated this during the remainder of the procedure. The abdomen was then prepped with chlorhexidine gluconate and alcohol swabs and draped sterilely. With transillumination of the abdominal wall local anesthesia was infiltrated at the scar from his previous G-tube site. A aster was made in the skin and the stylet needle was inserted through the abdominal wall and readily into the stomach. The guidewire was placed and this was grasped with a snare through the endoscope and withdrawn through the mouth. The 20-German flow 20 tube was then advanced down the guidewire and out the anterior abdominal wall. This was pulled up so that the internal bumper was gently against the anterior abdominal wall and the elías at the skin was approximately 3 cm. The external retention disc was slipped into position and the tube clamped and feeding port were attached. Dr. Espinoza reinserted the scope and the bumper was seen gently resting on the mucosal surface with no evidence of bleeding or hematoma. The scope was withdrawn. The patient tolerated the procedure well. The tube site was dressed. He was taken to the recovery area in stable condition.
== END 2019-01-06 12:52 | disposition home health service (06) ==
LOC: M OPP 11:50 → M MS5PR 18:41 → M OPP 01-06 12:52
PROVIDERS: ATTEND Surgery
DX: C44.40 Unspecified malignant neoplasm of skin of scalp and neck (principal); A04.72 Enterocolitis due to Clostridium difficile, not specified as recurrent
CPT/HCPCS: 36415; 43246; 80053; 83735; 87493; J1720; J2250; J2370; J3010

== ENCOUNTER 2019-01-16 11:00 | Outpatient (RCR) | payer MEDICARE ==
[2018-10-03 11:14] VITALS: BP 126/78
[2018-10-03 11:36] VITALS: BP 126/80
--- NOTE | 2018-10-05 12:28 | MEDONC ---
HEMATOLOGY/ONCOLOGY PROGRESS NOTE DATE OF SERVICE: 10/04/2018 REASON FOR VISIT: Establish with a medical oncologist in the [facility] area. This is a very pleasant 53-year-old gentleman who is currently relocating from [place] to be with his sister. 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 He was all alone in [place] and his sister [place] she [place] help take care of him and partake in his care, as he was a bachelor. The patient's history starts back in November 2013 when he was diagnosed with squamous cell carcinoma of the head and neck due to an enlarged lymph node in the neck. He was found to have a right tonsillar area as the primary and he was given Erbitux and radiation therapy back in 2015. 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 He had completed concurrent chemotherapy and radiation back in September 2017. The patient was found initially to have extension into the deep neck soft tissues with multiple ill-defined areas of cervical lymphadenopathy with extra capsular extension. He was given 6996 cGy in 33 fractions. The extradural mass was adjacent to the right petrous apex and cerebellum. The patient has most recently had a restaging bone scan done in September of this year showing postradiation changes of the neck with subcutaneous stranding and loss of fat tissue planes on the right. He had shown an intensely metabolic active mass in the right skull base along the lateral jugular foramen measuring 3 x 9 x 2.3 cm. He had also shown an elongated lesion at the angle of the mandible along the anterior margin of the right sternocleidomastoid muscle, which measured 2.0 cm with an actively metabolic mass in the right parotid gland. There was an additional metabolically active focus posterior to the SCM muscle at the level of the dystrophic calcification and the left tonsillar pillar is more full than the right with no abnormal uptake. That PET scan was done in July 2017. The patient currently had gone to see a pain hazardous waste management specialist in the area and was started on gabapentin. He had been on gabapentin 800 mg p.o. daily. For pain control, he had also gotten a nerve ablation at the [facility]. He currently started MS IR 50 mg p.o. b.i.d., as well as fentanyl 25 mg patches and he takes oxycodone for intermittent pain relief. The patient states he is unable to sleep due to the pain and most of it starts around the right side of the face into the cheek area or into the buccal area. ALLERGIES: NO KNOWN DRUG ALLERGIES. PAST MEDICAL HISTORY: As above noted. CURRENT MEDICATIONS: Including pain medications include: - Tylenol 500 mg p.o. q.6 h - vitamin D3 - fentanyl - gabapentin - iron - Remeron 30 mg p.o. daily - morphine sulfate extended release 50 mg p.o. b.i.d. - oxycodone 10 mg p.o. q.i.d. - pantoprazole - prednisone 20 mg p.r.n. for facial swelling - venlafaxine 150 mg p.o. daily REVIEW OF SYSTEMS: As per history of present illness. PHYSICAL EXAMINATION: Temperature is 96.8, pulse 79, respiratory rate is 18, blood pressure 126/80, pulse oximetry is 91. His weight is 68.1 kg. BSA is 1.83. HEENT: NC. Sclerae white and nonicteric. Extraocular muscles intact. He has noted facial drooping on the right side. Facial swelling. Scarring in the posterior occipital area with tenderness on palpation of the right facial area. He has no palpable lymph nodes in the supraclavicular area. On the left side of the face, the patient has no signs of any adenopathy. Chest is otherwise clear to auscultation and percussion. CV: S1 and S2 appreciated. ABDOMEN: Soft, nontender. EXTREMITIES: No cyanosis, clubbing or edema. The patient has good hand grasp on the right upper extremity, as well as on the left. IMPRESSION: Concern for extension of disease. The patient does have extension into the right petrous bone area and had extradural extension. The concern is that he may have local invasion and had a history of a right temporal bone mass on his prior MRI of the brain. He had received Erbitux as the initial therapy along with radiation therapy and local control is going to be an issue. PLAN: I have asked the patient to go for repeat PET scan. The patient may need an MRI of the brain for further evaluation of his disease, as well as continued and ongoing pain management. As far as the patient's nerve blocks, he would need to go to at [facility] for these, and I have explained this to his sister that this is specialized pain management control that is not done here locally in the community. The patient will follow up with us, and I have written a prescription for oxycodone 10 mg p.o. q. 4 to 6 hours p.r.n. for pain control. I would like to take the patient off of the fentanyl eventually as its absorption can be erratic. Electronically Signed by Ramonita Tang MD 10/05/2018 05:03 P DD: Ramonita Tang MD 10/04/2018 07:59 A DT: hui 10/05/2018 07:09 A CC:
[2018-10-18 09:13] VITALS: BP 135/80
--- NOTE | 2018-10-19 13:01 | MEDONC ---
MEDICAL ONCOLOGY PROGRESS NOTE DATE OF SERVICE: 10/18/2018 REASON FOR VISIT: This is a followup office visit being dictated for a patient with known history of head and neck carcinoma. The patient has a squamous cell carcinoma of the head and neck that has been recurrent. Please refer to the practice note of 10/04/2018 for specific details. The patient's management issues have been swelling of the right face secondary to radiation, lymphedema, as well as erosion and progression of disease through the right jugular foramen. His primary was in the right tonsillar area. The patient is status post Erbitux. He is also status post reno-sparks therapy. He has received 6996 cGy in 33 fractions and had an extradural mass adjacent to the right petrous apex and cerebellum. The patient had a restaging bone scan in September of this year, has a loss of tissue planes, and he has recently gone for a PET scan. It is for that reason that he and his sister are here today for evaluation. His allergies are no known drug allergies. His past medical history has remained unchanged since 10/04/2018. His pain medications include fentanyl 25 mcg fentanyl patch to the chest wall daily, as well as morphine sulfate 15 mg p.o. daily. The patient is on gabapentin 800 mg p.o. q.i.d. and venlafaxine 150 mg p.o. daily. On his review of systems, the patient relates that he has had excruciating pain on the right side of the face. He has taken his maximum morphine sulfate, that he has good days and bad days. He has been taking prednisone intermittently to try to reduce the swelling of his face as instructed by the doctors in [place]. Despite this fact, he still has continued ongoing pain. His past pain management has been with nerve blocks at the base of the neck. And he has had optimized and maximized at his gabapentin. The patient has no visual disturbances, has decreased hearing, and finds that he has to sit at the edge of the chair with his hand up against his right side of the face in order to control some of the pain. On the patient's physical examination, he has a tendency to rock back and forth during the examination, holding his hand on his face due to his pain. He, unfortunately, has a large massive degree of swelling in the right buccal and cheek area, lip with distortion. His buccal mucosa shows no signs of any lesions. Neck shows no signs of any adenopathy on the left side but does have induration, thickness in the radiation port on the right. The patient has about a +3 edema on the right side of the face that extends from the maxillary area all the way down to below the submental line. His chest is otherwise clear. Cardiovascular: S1 and S2 appreciated. Abdomen is otherwise soft, nontender. Extremities: Show no cyanosis, clubbing, or any edema. Vital signs: His temperature is 97.6, pulse is 110, respiratory rate is 22, BP is 135/80, and pulse oximetry is 91. On his laboratories, the patient had labs done on 09/20/2017. These were done at [facility]. White count is 3.0, hemoglobin 11.3, hematocrit 43, platelets are 472. Going onto the patient's PET scan findings, both the images as well as the report were reviewed with the patient and his sister. He shows hypermetabolic foci in the mediastinal and bilateral hilar lymph nodes. There is a pretracheal lymph node displayed, standard uptake value of 12.54. Lymph node measures 18 mm in short axis dimension. The subcarinal node which measures 15 mm in short axis dimension and displays a maximum standard uptake value of 5.0. There is a metabolic and corrina uptake in the left hilar 7.51 and in the right hilar 3.70. There is an ill-defined opacity in the right lower lobe which is hypermetabolic with a standard uptake value of 4.0. This could be inflammatory or neoplastic. There is a small quantity of the right pleural fluid without hypermetabolic uptake. There is hypermetabolic foci in the skull base, in the right superior neck, as well as in the mediastinal and bilateral hilar lymph nodes and possible neoplastic focus in the right lower lobe of the lung. Impression at this time is progression of disease of a patient with initial squamous cell carcinoma of the tonsil, now status post Erbitux, status post reno-sparks therapy with massive edema, neuropathy, nerve pain, and uncontrolled pain currently. Plan is I have advised the patient that I would like to double his morphine sulfate from 15 mg p.o. b.i.d. to 30 mg p.o. b.i.d., maintain the fentanyl, and maintain the gabapentin as is. The patient was also advised to go on nivolumab 3 mg/kg every 2 weeks as per the NCCN guidelines for recurrent or metastatic head and neck carcinoma. The patient and his sister will also be going to [facility] for a second opinion or may even be going to [facility] [place]. I have advised the patient that further nerve blocks cannot be done locally and that he would need to go to a tertiary or a university institution in order to have these done, as this is very specialized work that only a few centers in the country do. Unfortunately, the patient had left [place], where he was getting some of these pain blocks, to come up to be with his sister who could be his assembler product. Electronically Signed by Ramonita Tang MD 10/20/2018 09:34 A DD: Ramonita Tang MD 10/19/2018 07:05 A DT: shanti 10/19/2018 12:42 P CC:
[2018-10-25 10:30] VITALS: BP 109/78
[2018-10-25 10:48] VITALS: BP 113/76
--- NOTE | 2018-10-28 10:23 | MEDONC ---
HEMATOLOGY/ONCOLOGY PROGRESS NOTE DATE OF SERVICE: 10/25/2018 Followup of head and neck cancer. The patient is here episodically. He came in for blood work and he had just started an increase in his fentanyl patches. He is able to be aroused but is somewhat somnolent. His [id number] has brought him in today as his sister was unable to accompany him. The patient is arousable and I am able to talk to him but he easily falls back into sleep. He currently states that he put on a Fentanyl 50 mcg patch to the chest wall and it was shortly the day after this that he became incredibly somnolent but it was the first time that he had been relieved of pain. The patient's face is markedly swollen and it is the most swollen it has been since he has been coming here and there is a balance between pain and somnolence with the medication. Vital signs: The patient's temperature is 97.8, pulse 78, respiratory rate is 20, BP is 113/76, pulse oximetry is 95. The patient has generalized swelling on the right side of the face with deviation of his lower lip. He also has some drooling. He prefers a bent over position but is able to straighten up when aroused. His chest is otherwise clear. Cardiovascular: S1 and S2 appreciated. Abdomen: Soft. Extremities: No cyanosis, clubbing or any edema. Laboratories were not drawn today. PLAN: Somnolence due to step up in Fentanyl dosing. I have advised the patient's [id number] that I would like to start him on Ritalin 5 mg p.o. daily to assess whether or not he has had any improvement in his state of being alert but that I would not step down on the dose at this point as this is the first time that he has had actual pain relief. I will be following up with the patient and talking to his sister as well and discussing further adjustments in pain dosing as needed. Electronically Signed by Ramonita Tang MD 10/28/2018 10:52 A DD: Ramonita Tang MD 10/26/2018 04:57 P DT: ole 10/28/2018 10:13 A CC:
--- NOTE | 2018-11-03 14:10 | MEDONC ---
HEMATOLOGY/ONCOLOGY PROGRESS NOTE DATE OF SERVICE: 11/02/2018 This is a very pleasant gentleman who has been seen here on the oncology service for head and neck carcinoma. The patient has had excruciating pain from his head and neck cancer and has had intermittent massive swelling of the right side of the face as well. He had been seen here last week as he had been increased with his dose of fentanyl from 25 mcg to 50. The 50 caused the patient to have some obtundation and was too much of a dose for him. He was given Ritalin 5 mg every morning and he was given five tablets, he took one today and he had a dose reduction on the fentanyl from 50 mcg down to 37. This seems to be holding the patient and he does not appear to be in any pain at this particular visit. This is unusual as every visit this patient has had he was in excruciating pain. The decrease in the swelling and the dose adjustments of the pain medication have contributed somewhat to his comfort. His sister reports that he will have fluctuating edema of the face and some of those days where he has a lot of swelling he will have a lot of pain as well. The patient's past medical, surgical and family history have remained unchanged since his office visit of 10/04/2018. His current medications include fentanyl 37 mcg to chest wall every 72 days, Remeron 30 mg by mouth daily, Ritalin 5 mg by mouth every morning, morphine sulfate immediate release 15 mg by mouth four times a day as needed, prednisone 20 mg by mouth twice a day as needed for facial swelling, Lasix 10 mg by mouth every day as needed for facial swelling and venlafaxine 150 mg by mouth daily. Review of systems is decrease in pain, increased somnolence, but these are days where he feels better if he is allowed to sleep a good part of the day. On his physical examination the patient's vital signs are notable for a temperature of 97, pulse is 106, respiratory rate is 22, pulse oximetry is 96 and his ECOG is approximately 1/4. On physical examination the patient has decreased right-sided facial swelling but still remains with right-sided versus left-sided facial asymmetry. His chest is clear to auscultation and percussion. Cardiovascular is normal. Abdomen is otherwise soft and his extremities no cyanosis, clubbing or any edema. No labs were drawn today. PLAN: Is to continue the patient on current pain medication prescriptions, these have been renewed for him. Please note that the [employer] was down and I have advised the patient that if they have any problems with the pain prescriptions to please call us as we are sure when this the line server will come back up again. Electronically Signed by Ramonita Tang MD 11/04/2018 10:11 A DD: Ramonita Tang MD 11/02/2018 05:53 P DT: sukumar 11/03/2018 01:45 P CC:
[2018-11-23 10:40] VITALS: BP 126/88
--- NOTE | 2018-11-24 16:08 | MEDONC ---
HEMATOLOGY/ONCOLOGY PROGRESS NOTE DATE OF SERVICE: 11/23/2018 PROGRESS NOTE: This is his first visit after he had been admitted and then subsequently discharged from the hospital for better pain control management. The patient has a history of head and neck carcinoma with erosion into the petrous sinus area and has been on large doses of morphine as well as gabapentin. He had developed a case of C diff colitis as well as an acute respiratory failure and septic shock. The patient had been treated with antibiotics, was placed on multiple vasopressors, stress steroid doses and was intubated. This was predominantly due to Salmonella sepsis. He eventually was weaned off of the mechanical ventilation and extubated where he had continued on a full course of antibiotic therapy and has successfully recovered. The patient currently has 3-4 days of oral vancomycin left for his C diff colitis. His stool is beginning to become semi-formed. He has had no liquid, watery stool and has had no blood in the stool at this point. The patient has been on high-dose steroids 40 mg daily due to facial swelling and despite trying to taper the patient off of steroids, he has a had a recurrence of the facial swelling with resurgence of excruciating pain along with it. Currently his medications include: - gabapentin 200 mg p.o. b.i.d. - Ritalin 5 mg daily - Remeron 50 mg p.o. b.i.d. - morphine sulfate 15 mg p.o. b.i.d. - fentynal 37 mcg patches q.72 h - as well as venlafaxine 150 mg p.o. daily. The patient's past medical, surgical and family history have remained unchanged with the exception of his admission to the hospital for enterocolic gram-negative bacteremia and septicemia. On his review of systems, he has had much improvement in his pain management. However, he still relates that he needs that 37 mcg of the fentanyl that 50 mcg of the fentanyl is too much and makes him too drowsy and the 25 mcg are not sufficient enough. He had been changed from the gabapentin 800 mg every 6 hours that he had previously been on and his physician in the hospital had decreased that to 200 p.o. b.i.d. and he is beginning to feel a recurrence and resurgence of the intensity of his pain as a result. The patient states that the right side of the face still has intermittent swelling but it is markedly improved. He still has the ability to sleep and no new cough, chest pain, hematuria, etc. On the patient's physical examination, he remains with mild facial swelling, however markedly improved since his initial visit of 10/03/2018. Temperature is 97.1, pulse is 96, respiratory rate is 18, BP is 126/88, pulse oximetry is 95. On the patient's physical examination, the right side of the face has drooping plus swelling and deviation towards the left. His oropharynx is free of any form of thrush, and the patient's neck is otherwise supple. His chest has decreased breath sounds at the bases. His cardiovascular S1 and S2 are appreciated with no murmurs. His abdomen is otherwise soft, it is nontender, and his extremities show about +1 bilateral pitting edema. Laboratories were not drawn on today's visit. ASSESSMENT (at this time): 1. With local advanced progression of disease. 2. Direct extension into the nerves causing neuropathic pain. 3. Inadequate pain control management off of the gabapentin high doses. 4. Disease noted to be in the right skull base along the lateral jugular foramen measuring 3 x 9 x 2.3 cm as well as an elongated lesion at the ankle of the mandible along the anterior margin of the right SCM muscle. PLAN: Plan is to give the patient the gabapentin 800 mg q.6 h for a total maximum daily dose of 2400 mg , maintain the fentanyl at 37 mcg q.72 h. I have advised the patient as well as the sister today that I would like to start him on nivolumab therapy. However, because of the adverse side effect of colitis, I would like to hold back on giving him that medication until his C diff is completely cleared and he is completely off of antibiotic therapy. The patient will be returning in approximately 2 weeks for reassessment. Electronically Signed by Ramontia Tang MD 11/25/2018 02:15 P DD: Ramonita Tang MD 11/23/2018 12:28 P DT: [email or web address] 11/24/2018 03:54 P CC:
[2018-12-07 11:56] VITALS: BP 120/80
[2018-12-07 13:53] LABS: HEMATOCRIT 37.5 % (42.0-52.0); HEMOGLOBIN 11.7 g/dl (13.5-17.5); LYMPH % 10.3 % (24.0-44.0); MEAN CORPUSCULAR HGB CONC 31.2 g/dl (32.0-36.5); MEAN CORPUSCULAR VOLUME 89.8 fl (80.0-96.0); NEUTROPHILS # 8.3 10^3/uL (1.8-7.7); NEUTROPHILS % 81.7 % (36.0-66.0); RED BLOOD COUNT 4.18 10^6/uL (4.30-6.10); WHITE BLOOD COUNT 10.1 10^3/uL (4.0-10.0)
[2018-12-07 14:20] LABS: BLOOD UREA NITROGEN 14 MG/DL (6-20); CALCIUM LEVEL 9.1 MG/DL (8.5-10.2); CARBON DIOXIDE LEVEL 32 MEQ/L (23-31); CHLORIDE LEVEL 102 MMOL/L (98-107); CREATININE FOR GFR 1.04 MG/DL (0.90-1.30); GLOMERULAR FILTRATION RATE > 60.0 (>56); GLUCOSE, FASTING 104 MG/DL (70-105); POTASSIUM SERUM 3.1 MMOL/L (3.5-5.1); SODIUM LEVEL 140 MMOL/L (135-145); TOTAL PROTEIN 5.6 GM/DL (6.4-8.3)
[2018-12-07 14:52] LABS: ALBUMIN 3.7 GM/DL (3.5-5.2)
--- NOTE | 2018-12-12 08:30 | MEDONC ---
FOLLOWUP VISIT DATE OF SERVICE: 12/07/2018 IDENTIFICATION: The patient is a 53-year-old man with advanced head and neck cancer. CURRENT TREATMENT: The patient is planned to be started on nivolumab; however, this has been postponed recently because of C difficile colitis. INTERVAL HISTORY: The patient was just discharged from the hospital yesterday against medical advice. He had been admitted because of an episode of severe hypotension, which was felt to be due to excess narcotic effect. He stabilized in the hospital and decided to leave yesterday. Of note, his liver function tests were markedly elevated at the time he left from the hospital. Currently he is using fentanyl 25 mcg patches, which is a reduction from a dose of 37.5 that he had been taking. He has also reduced his morphine use to 30 mg immediate release as needed for breakthrough pain and he is also taking gabapentin 800 mg q.i.d. Additional medications include Effexor, pantoprazole, mirtazapine, Lasix and prednisone 20 mg b.i.d. The patient reports he is feeling fairly well at this point and his pain control is good. He does not feel like he derives any benefit from the Neurontin. He c/o blockage and decreased hearing in right ear. PHYSICAL EXAMINATION General: The patient appears somewhat cachectic and in no distress. Vital signs: Weight 74.3 kg, temperature 97.0, pulse 75, respiration 18, blood pressure 120/80, pulse ox 94% on room air. HEENT: The patient has obvious surgical deformities and swelling of the right side of the face. The right ear canal opening is deformed and occluded by cerumen. Chest: Clear to auscultation. Abdomen: Nontender without mass or hepatosplenomegaly. Extremities: Without cyanosis or edema. LABORATORY: Today CBC showed WBC 10.1, hemoglobin 11.7, hematocrit 37.5, platelet 511, ANC is 8.3. CMP notable for AST of 320 and ALT of 906. Of note, these values are significantly improved compared with yesterday's values while he was in the hospital. ASSESSMENT: 1. Good pain control without excess sedation on his current narcotic regimen, as above. 2. Elevated LFTs, probably due to shock liver as a result of his hypotensive episode, now improving. PLAN: 1. Discontinue gabapentin. 2. Discontinue the Lasix. 3. Reduce the prednisone to 20 mg daily. 4. Referral to ENT because of the severe ear wax blockage in the deformed right ear canal. 5. Return visit in 1 week with CBC and CMP on the day of the visit. Electronically Signed by Sukhjinder Pace MD 12/12/2018 01:03 P DD: Sukhjinder Pace MD 12/10/2018 04:12 P DT: [email or web address] 12/12/2018 08:26 A CC:
[2018-12-14 13:13] LABS: HEMATOCRIT 39.3 % (42.0-52.0); HEMOGLOBIN 12.2 g/dl (13.5-17.5); LYMPH % 9.7 % (24.0-44.0); MEAN CORPUSCULAR VOLUME 90.1 fl (80.0-96.0); NEUTROPHILS # 10.7 10^3/uL (1.8-7.7); NEUTROPHILS % 82.5 % (36.0-66.0); RED BLOOD COUNT 4.36 10^6/uL (4.30-6.10)
[2018-12-14 13:17] VITALS: BP 119/79
[2018-12-14 13:33] LABS: BLOOD UREA NITROGEN 16 MG/DL (6-20); CALCIUM LEVEL 9.5 MG/DL (8.5-10.2); CARBON DIOXIDE LEVEL 33 MEQ/L (23-31); CHLORIDE LEVEL 101 MMOL/L (98-107); CREATININE FOR GFR 1.02 MG/DL (0.90-1.30); GLOMERULAR FILTRATION RATE > 60.0 (>56); GLUCOSE, FASTING 111 MG/DL (70-105); SODIUM LEVEL 140 MMOL/L (135-145); TOTAL PROTEIN 6.3 GM/DL (6.4-8.3)
--- NOTE | 2018-12-14 14:12 | MEDONCENPD ---
Date/Time of Encounter Date of Encounter: Dec 14, 2018 Time of Encounter: 14:03 Encounter Preliminary notes LFT's elevated no OPDIVO given yet Gabapentin discontinued thought to be causing LFT infusions Laboratory Tests 12/14/18 12:41 Red Blood Count 4.36, Mean Corpuscular Volume 90.1, Mean Corpuscular Hemoglobin 28.0, Mean Corpuscular Hemoglobin Concent 31.0 L, Red Cell Distribution Width 15.9 H, Mean Platelet Volume 7.4, Neutrophils (%) (Auto) 82.5 H, Lymphocytes (%) (Auto) 9.7 L, Mid Range Cells % (auto) 7.8, Neutrophils # (Auto) 10.7 H, Calcium Level 9.5, Aspartate Amino Transf (AST/SGOT) 7, Alanine Aminotransferase (ALT/SGPT) 91 H, Alkaline Phosphatase 93, Total Bilirubin 0.5, Total Protein 6.3 L, Albumin 4.0 [facility] 2018 14:12
[2018-12-14 15:40] LABS: HEPATITIS A ANTIBODY IGM NEGATIVE (NEGATIVE); HEPATITIS B CORE ANTIBODY IGM NEGATIVE (NEGATIVE); HEPATITIS B SURFACE ANTIGEN NEGATIVE (NEGATIVE)
[2018-12-22 10:33] VITALS: BP 117/82
[2018-12-22 10:49] LABS: HEMATOCRIT 38.7 % (42.0-52.0); LYMPH % 13.1 % (24.0-44.0); MEAN CORPUSCULAR VOLUME 90.1 fl (80.0-96.0); NEUTROPHILS # 9.9 10^3/uL (1.8-7.7); NEUTROPHILS % 81.8 % (36.0-66.0); RED BLOOD COUNT 4.29 10^6/uL (4.30-6.10); WHITE BLOOD COUNT 12.1 10^3/uL (4.0-10.0)
[2018-12-22 11:08] LABS: ALBUMIN 3.8 GM/DL (3.5-5.2); BLOOD UREA NITROGEN 5 MG/DL (6-20); CARBON DIOXIDE LEVEL 33 MEQ/L (23-31); CHLORIDE LEVEL 100 MMOL/L (98-107); CREATININE FOR GFR 1.04 MG/DL (0.90-1.30); GLOMERULAR FILTRATION RATE > 60.0 (>56); GLUCOSE, FASTING 128 MG/DL (70-105); SODIUM LEVEL 141 MMOL/L (135-145)
[2018-12-22 11:48] VITALS: BP 100/69
--- NOTE | 2018-12-24 15:24 | MEDONC ---
HEMATOLOGY/ONCOLOGY PROGRESS NOTE DATE OF SERVICE: 12/22/2018 REASON FOR VISIT: Advanced head/neck carcinoma, squamous , with osseous infiltration into the cranial base . The patient had been admitted to [facility] in the interval. The patient had developed dehydration. He had also just been getting over his C diff colitis and has been improving with that. He has been losing weight as the pain in the side of his neck has been causing him to have some anorexia. His sister has been changing his medications, and he had been brought to the hospital at [place], where he was given Narcan. He had been on 37.5 mg of fentanyl and 30 mg of immediate release q.12 h for pain. Due to his weight loss, the patient's narcotic requirement may have caused him to become more obtunded than normal. His gabapentin has been removed 800 mg p.o. q.i.d. due to elevation of liver enzymes. The patient had a hepatitis A, B, and C screen done in the interval to rule out any form of infectious etiology due to the transaminitis, and all three were found to be negative. The patient is not eating. He is still losing weight. He is not able to participate a lot of activities of daily living. He is fully ambulatory but has to rest frequently due to the pain. His current pain medications include acetaminophen 500 mg p.o. q.6 h, CBD oil, vitamin D2 50,000 units q. week, fentanyl patch 12 mcg p.o. q.72 h, ferrous sulfate 125 mg p.o. daily, methylphenidate 5 mg p.o. daily, Remeron 15 mg p.o. b.i.d., mirtazapine 15 mg p.o. q.p.m., morphine sulfate 30 mg p.o. q.12 h as needed, extended release, pantoprazole 40 mg p.o. b.i.d., prednisone 20 mg p.o. b.i.d., Senokot 8.6 mg p.o. b.i.d., vancomycin 125 mg p.o. q.6 h, venlafaxine 150 mg p.o. daily. On his review of systems, patient has still persistent 7/10 pain on the right side of the face. It is intermittent. He will have periods of time where he has good pain relief and other times where it is 5/10, 7/10, and he takes his pain medication. On his physical examination, his ECOG is about 2/4. His temperature is 98, pulse is 82, respiratory rate is 18, BP is 100/69, pulse oximetry is 99. The patient still has swelling on the right side of the facial area, deviation. Chest is otherwise clear to auscultation/percussion. Cardiovascular: S1 and S2 are appreciated. No murmurs. Abdomen is otherwise soft, nontender. Extremities show no cyanosis, no clubbing, or any edema. LABORATORIES: The patient has a WBC count of 12.1, hemoglobin of 12/38, MCV of 90, RDW of 16.2, platelets of 687, neutrophils are 81.1, lymphocytes are 13.1. Chemistries show a sodium of 141, potassium 4.1, chloride 100, CO2 33, BUN 5, creatinine 1.04, glucose of 128, calcium of 8.8, total bilirubin 0.4, AST of 6, ALT of 10, alkaline phosphatase of 83. ASSESSMENT: 1. Head/neck carcinoma with disease progression through chemotherapy. 2. Transient transaminitis, likely due to gabapentinas normalization of the AST/ ALT has occured off gabapentin. 3. Persistent pain, complicated by swelling, currently controlled on intermittent pulse doses of steroids as high as 40 mg p.o. daily. 4. Inanition secondary to pain and inability to take in enough for nutrition. 5. Port-A-Cath nonfunctioning. PLAN: 1. Get a portogram 2. PEG tube placement or feeding tube placement with nutritional consultation. 3. Hydration. 4. Start Keytruda 200 mg IV piggyback every 3 weeks for head/neck carcinoma indication. 5. Renew pain medications. Maintain the patient on his current doses of medication and home health consult. Electronically Signed by Ramonita Tang MD 12/26/2018 08:16 A DD: Ramonita Tang MD 12/22/2018 12:19 P DT: thais 12/24/2018 03:11 P CC:
--- NOTE | 2019-01-04 08:44 | MEDONC ---
HEMATOLOGY/ONCOLOGY PROGRESS NOTE DATE OF SERVICE: 12/22/2018 This is a patient who was for head neck carcinoma. He is here today for evaluation and management of Keytruda therapy to initiate for head neck carcinoma. The patient's sister is with him here today. In the interval since his last visit, the patient had a prior visit here in the office on 12/12/2018. He had seen Dr. Sukhjinder Pace and he is here today for assessment for therapy. Questions were answered and asked regarding his Keytruda therapy and the patient will proceed with treatment as scheduled. Electronically Signed by Ramonita Tang MD 01/04/2019 01:59 P DD: Ramonita Tang MD 01/03/2019 01:10 P DT: ole 01/04/2019 08:36 A CC:
--- NOTE | 2019-01-04 08:49 | MEDONC ---
MEDICAL ONCOLOGY OFFICE NOTE DATE OF SERVICE: 12/14/2018 The patient is here today on evaluation of elevated LFTs. He has not been given his immune therapy. The concern was that the gabapentin may have been causing LFTs to rise. On further evaluation of his laboratories today, he shows no signs of any pancytopenia. Absolute neutrophil counts are within normal range and his serum creatinine is 1.02. Today we discussed predominately immune mediated therapy and clinical trials that may be of value at [facility]. The patient had been going or was recommended to go to [facility] and had gone there - they recommended immune mediated therapy with OPDIVO or KEYTRUDA I have gone over in depth the side effects, benefits and risks of immune mediated therapy with the patient and his sister. They will take this under advisement and then follow up with us after consultation with their physician. Electronically Signed by Ramonita Tang MD 01/04/2019 01:59 P DD: Ramonita Tang MD 01/03/2019 01:13 P DT: ole 01/04/2019 08:43 A CC:
--- NOTE | 2019-01-04 13:54 | MEDONCENPD ---
Date/Time of Encounter Date of Encounter: Jan 04, 2019 Time of Encounter: 13:50 Encounter The patient had the G tube procedure for today the anesthesiologist cancelled due to safety concerns re intubation with fixed They will need to reschedule for an OR time today . Ramonita Tang MD Jan 04, 2019 13:54
[~2019-01-16] VITALS: Ht 177.8 cm; Wt 67.3 kg
[~2019-01-16 11:00] MED LIST changes: -AMPICILLIN SOD/SULBACTAM SOD 3 GM in D5W MINI-BAG PLUS 100 ML IV ONE; +FIRV50SO GT; +JEVILIQ7 GT; -MORP-38 PO; +MORP-69 PO; -NS 1,000 ML IV ONE; +PEMBROLIZUMAB OVER 30 MINUTES IV ONE
[2019-01-16 11:43] VITALS: BP 113/81
[2019-01-16 12:01] LABS: HEMATOCRIT 35.5 % (42.0-52.0); HEMOGLOBIN 11.2 g/dl (13.5-17.5); LYMPH % 11.7 % (24.0-44.0); MEAN CORPUSCULAR HEMOGLOBIN 27.4 pg (27.0-33.0); MEAN CORPUSCULAR HGB CONC 31.5 g/dl (32.0-36.5); MEAN CORPUSCULAR VOLUME 86.8 fl (80.0-96.0); NEUTROPHILS # 12.2 10^3/uL (1.8-7.7); NEUTROPHILS % 81.1 % (36.0-66.0); RED BLOOD COUNT 4.09 10^6/uL (4.30-6.10)
[2019-01-16 12:09] LABS: ALBUMIN 2.7 GM/DL (3.5-5.2); BLOOD UREA NITROGEN 8 MG/DL (6-20); CARBON DIOXIDE LEVEL 33 MEQ/L (23-31); CREATININE FOR GFR 0.93 MG/DL (0.90-1.30); GLOMERULAR FILTRATION RATE > 60.0 (>56); GLUCOSE, FASTING 142 MG/DL (70-105); SODIUM LEVEL 135 MMOL/L (135-145); TOTAL PROTEIN 5.3 GM/DL (6.4-8.3)
[2019-01-16 12:10] LABS: CHLORIDE LEVEL 96 MMOL/L (98-107)
[2019-01-16] MEDS ORDERED: FENT12DI12 TOP ×3 (12:13→12:16)
[2019-01-16] MEDS ORDERED: REME30TA PO (12:18)
[2019-01-16] MEDS ORDERED: MORP20SO PO (12:20)
[2019-01-16] MEDS ORDERED: SODIUM CHLORIDE 0.9% INJ 10 ML SYR IV PRN (13:00)
--- NOTE | 2019-01-16 13:37 | ONC.PHACK ---
CHEMO ADMIN CHECKLIST Order Contains Pt ID: Name, Order on Chemo Order Form?: Yes Order Form Includes ALL: Correct Tx Day, Correct Date, Correct Cycle Number Pt ID on Order form Matches: Pt ID on PHA Label Med on Chemo OrderForm Matches: PHA Label, Med Used for Preparation [facility] Jan 16, 2019 13:37
--- NOTE | 2019-01-24 14:54 | MEDONCTEEN ---
Date/Time of Encounter Date of Encounter: Jan 24, 2019 Time of Encounter: 14:43 Telephone Encounter I returned a phone call to Faoroq's sister and caregiver services home [facility] We discussed palliative care being involved in his case and making recommendations regarding his gabapentin She mentioned that she gave him some ATIVAN for sleep on night with improvement for a ehile but 10/10 pain as well with facial swelling , he had periods of rocking , curling up in a position from pain she had given him 8 cc of the morphine with no improvement He is Fentanyl 25 mcg patch increased it to 37,5 then she removed it again and he is down to 25 mcg a day pallitaive care is involved and I am confused as to the exact regimen I asked for a list from [facility] Phone service had a lot of static Plan is to talk to palliative care to clarify what the pain management situation is Ramonita Tang MD Jan 24, 2019 14:54
[2019-02-06] MEDS ORDERED: SODIUM CHLORIDE 0.9% INJ 10 ML SYR IV PRN (08:00)
[2019-02-06] MEDS ORDERED: PEMBROLIZUMAB OVER 30 MINUTES IV ONE ×2 (14:30)
--- NOTE | 2019-02-17 10:09 | MEDONC ---
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 The patient continues to have ongoing excruciating pain; has now been seen by the palliative care program who is now controlling his pain medications. He has been taking the CBD oil and is on morphine sulfate 30 mg p.o. b.i.d. as well as 20 mg p.o. q.3-4 h as needed. He remains on the venlafaxine as well. The patient spends a good part of his day either in bed or lying down on the couch. His pain is still not controlled. He had a fentynal patch, a 25 mcg patch with an additional 12 added. The patient's sister has been taking the patch off and on as she is concerned about his being too somnolent. On his physical examination, he has a performance status of 3/4. His temperature is 96.3, BP is 131/81. The right side of the face remains swollen, tender. The patient's general appearance appears gaunt. He is in a semi curled position on the table. His chest is otherwise clear. Cardiovascular: S1 and S2. GT tube is intact. Extremities show trace 1-2 pitting edema. Laboratories show a WBC count of 15, hemoglobin and hematocrit of 11, 35, RDW of 16.4. Platelet counts are now over 1,000,000. Neutrophils are 81. Chemistry show a sodium of 135, potassium of 3.7, BUN of 8, creatinine of 0.93, AST of 11, ALT of -4, alkaline phosphatase of 109. ASSESSMENT:: At this time is 53-year-old gentleman with progressive head/neck carcinoma now with encroachment into the petrous sinus areas, persistent ongoing pain. PLAN: I had a discussion with the patient regarding palliative care. He is currently on that program with possibly a potential towards hospice. The patient's performance status has been decreasing. He has been on the Keytruda therapy. The concern is whether or not he can transport back and forth anymore to the office visit. Will have discussions with palliative care about transitioning to hospice if needed. Electronically Signed by Ramonita Tang MD 02/17/2019 04:42 P DD: Ramonita Tang MD 02/15/2019 07:32 A DT: layla 02/17/2019 09:41 A CC:
== END 2019-01-16 14:32 | disposition home or self-care (01) ==
LOC: M ONCM 11:00
PROVIDERS: ATTEND Internal Medicine Hematology & Oncology
DX: C09.9 Malignant neoplasm of tonsil, unspecified (principal); Z79.899 Other long term (current) drug therapy
CPT/HCPCS: 36415; 36591; 80053; 85027; 86705; 86709; 86803; 87340; 96413; 96415; G0463; J1642; J9271